=== PATIENT | female | born 1990 | race Caucasian/White ===

== ENCOUNTER → 2018-01-16 13:36 | Outpatient (CLI) | payer MEDICAID, SELFPAY ==
[2018-01-17 11:21] LABS: Hepatitis C Ab w Rflx HCV PCR Negative (NEGAT)
[2018-01-17 11:48] LABS: HIV-1/2 Ag & Ab Screen Negative (NEGAT)
[2018-01-17 13:46] LABS: Syphilis Serology (RPR) Negative (Negative)
[2018-01-17 14:53] LABS: Hepatitis B Surface Ag Negative (NEGAT)
== END ==
PROVIDERS: PCP Nurse Practitioner Adult Health; Visit Provider Nurse Practitioner Family
DX: Z11.3 Encounter for screening for infections with a predominantly sexual mode of transmission (principal); Z11.59 Encounter for screening for other viral diseases; Z11.4 Encounter for screening for human immunodeficiency virus [HIV]; Z12.4 Encounter for screening for malignant neoplasm of cervix
CPT/HCPCS: 36415; 86803; 87340; 87389; 87491; 87591; 88142; 86592

== ENCOUNTER → 2018-01-16 13:56 | Outpatient (REF) | payer MEDICAID, SELFPAY ==
--- NOTE | 2018-01-16 13:30 | PAPFT_PTH ---
PATIENT: Steffanie Chandler LOC: [facility] U#:[id number] AGE/SX: 34/F ROOM: RE01/16/[address]: LESLIE Rodríguez : 1990 BED: DIS: SPEC #: [id number] RECD: 01/16/18 17:38 STATUS: MATHEW REMaday #: [id number] BARBARA: 01/16/18 13:[address]: Lexi Finch DEPT: [facility] Cytology RECD BY: Jeanna Song ENTERED: 01/16/18 17:38 SP TYPE: PAPFT OTHR DR: Pooja Bunn Tissues: 1 - CX/ENDOCX FOR PAP SMEARS Procedures: PAP THIN PREP/UVM Screening Comments: [id number]
[2018-01-17 14:36] LABS: GC Result Negative; Specimen Description CERVIX
[2018-01-17 15:26] LABS: Chlamydia Result Positive
== END ==
LOC: LBN 13:56
PROVIDERS: PCP Nurse Practitioner Adult Health; Visit Provider Nurse Practitioner Family
DX: Z11.3 Encounter for screening for infections with a predominantly sexual mode of transmission (principal); Z12.4 Encounter for screening for malignant neoplasm of cervix
CPT/HCPCS: 87491; 87591; 88142

== ENCOUNTER 2018-06-18 08:26 | Outpatient (CLI) | payer MEDICAID, SELFPAY ==
[2018-06-18 10:07] LABS: Glucose 85 mg/dL (70-100); TSH (W/Ref FT4) 2.29 uIU/mL (0.358-3.74)
== END 2018-06-18 08:46 ==
PROVIDERS: PCP Nurse Practitioner; Visit Provider Nurse Practitioner
DX: Z13.1 Encounter for screening for diabetes mellitus (principal); Z13.29 Encounter for screening for other suspected endocrine disorder; Z83.49 Family history of other endocrine, nutritional and metabolic diseases; Z68.41 Body mass index [BMI] 40.0-44.9, adult
CPT/HCPCS: 36415; 82947; 84443

== ENCOUNTER 2018-07-03 14:54 | Emergency (ER) | payer MEDICAID, SELFPAY ==
[2018-07-03 14:57] VITALS: BP 125/73; PULSE 72; RESP 17; TEMP 36.4; O2SAT 97
--- NOTE | 2018-07-03 15:08 | W.ED.GENAD ---
Discharge Plan Disposition Patient Disposition: HOME Condition: Stable Discharge Details Chief Complaint: RashLesion Clinical Impression: Tinea corporis, Dry skin dermatitis Primary Care Provider: Hemalatha Briceno ED Provider: Raymundo York Home Meds and New Rx's Prescriptions: New clotrimazole 1 % ointment 1 applic TP BID 14 Days Qty: 56.7 RF: 0 Discontinued metronidazole 500 MG tablet 500 mg PO BID Qty: 14 RF: 0 Azithromycin 250 MG tablet 1,000 mg PO ONCE Qty: 4 RF: 0 Discharge Instructions Instructions: Skin Yeast Infection (ED) Additional Instructions: Please use cream twice daily for the next 2 weeks and keep skin clean and dry otherwise. Feel free to return for any worsening of symptoms or any further concerns otherwise follow-up with your primary care provider if not improving after using the cream. Referrals: Hemalatha Briceno [Primary Care Provider] - (As needed for reassessment) Medical Decision Making Patient presenting to the emergency department for chief complaint of rash. Patient states that yesterday she noted a small area on her breast that was red and itchy. Patient states this morning she put hydrocortisone cream on it thinking this would help which has made symptoms slightly worse. Patient denies any fever chills, cold-like symptoms, nausea vomiting diarrhea, difficulty breathing swelling of the lips tongue mouth or airway problems. Patient does state that she generally has dry skin and has some generalized itching on her back arms and legs but no obvious rash in those areas. Physical exam shows a perineal-like area to the lower sternum and underneath the medial aspects of the breast otherwise no other obvious rash is noted, exam is otherwise unremarkable. Patient placed up on clotrimazole cream and informed to use this twice daily for next 2 weeks and return as needed. After discussion of diagnosis and plan of care patient has no further needs, questions, or concerns and states clear understanding to return to the emergency department for any worsening symptoms. HPI General Mode of arrival: ambulatory. Date/Time Provider Initiated Documentation: 07/03/18 14:59. Limitations to Documentation: no limitations. Information obtained by: patient. History of Present Illness 27 year old F presents to the emergency department with the chief complaint of rash, dry skin, described as mild, with intensity rated at 1. Quality is described as burning, and is localized to the chest. Patient started experiencing this day(s) (1) and it has been constant. No relieving factors improve symptom(s), No exacerbating factors reported . Patient notes no other symptoms.. Related Data Home Medications Medication Instructions Recorded Confirmed clotrimazole 1 applic TP BID 14 Days #56.7 gm 07/03/18 Previous Rx's Medication Instructions Recorded clotrimazole 1 applic TP BID 14 Days #56.7 gm 07/03/18 Allergies Allergy/AdvReac Type Severity Reaction Status Date / Time No Known Allergies Allergy Unverified 01/16/18 13:04 General Stated Complaint: RashLesion FERNANDO: 4 Review of Systems Constitutional Denies chills and Denies fever(s) ENT Denies lip swelling, Denies throat swelling and Denies tongue swelling Cardiovascular Denies dyspnea Respiratory Denies chest congestion, Denies cough, Denies dyspnea, Denies stridor and Denies wheezing Integumentary/Breasts Reports as per HPI, Reports dry skin, Reports pruritus and Reports rash Allergic/Immunologic Denies lip swelling, Denies throat swelling, Denies tongue swelling and Denies wheezing PFSH Surgical History section Family History Mother RA (rheumatoid arthritis) Depression Thyroid disorder Brother Depression Social History Smoking/Tobacco Use Status: Never Exam Const General: cooperative Orientation: alert, awake and oriented x3 HENMT Mouth: moist mucous membranes Resp Effort & Inspection: normal respiratory effort, able to speak in complete sentences and no respiratory distress Skin General skin exam: dry skin and erythema (Patient has well demarcated erythematous rash above her lower sternum ) Lesions: no lesions Neuro General: alert, awake, oriented x3, moves all extremities and no focal motor deficits Sensory Exam: no sensory deficits noted Course Vital Signs Temperature 36.4 C L 07/03/18 14:57 Pulse 72 07/03/18 14:57 Respiratory Rate 17 07/03/18 14:57 Blood Pressure 125/73 07/03/18 14:57 Pulse Oximetry 97 07/03/18 14:57 Temperature 36.4 C L 07/03/18 14:57 Temperature Source Temporal Artery Scan 07/03/18 14:57 Pulse 72 07/03/18 14:57 Respiratory Rate 17 07/03/18 14:57 Respiratory Effort Non-Labored 07/03/18 14:59 Blood Pressure 125/73 07/03/18 14:57 Blood Pressure Position Sitting 07/03/18 14:57 Pulse Oximetry 97 07/03/18 14:57 Oxygen Delivery Method Room Air 07/03/18 14:57 Oxygen Flow Rate 0 07/03/18 14:57 Pain Level 1 07/03/18 14:57
--- NOTE | 2018-07-03 15:11 | ED.GENADUL_ITS ---
Discharge Plan Disposition Patient Disposition: HOME Condition: Stable Discharge Details Chief Complaint: RashLesion Clinical Impression: Tinea corporis, Dry skin dermatitis Primary Care Provider: Hemalatha Briceno ED Provider: Raymundo York Home Meds and New Rx's Prescriptions: New clotrimazole 1 % ointment 1 applic TP BID 14 Days Qty: 56.7 RF: 0 Discontinued metronidazole 500 MG tablet 500 mg PO BID Qty: 14 RF: 0 Azithromycin 250 MG tablet 1,000 mg PO ONCE Qty: 4 RF: 0 Discharge Instructions Instructions: Skin Yeast Infection (ED) Additional Instructions: Please use cream twice daily for the next 2 weeks and keep skin clean and dry otherwise. Feel free to return for any worsening of symptoms or any further concerns otherwise follow-up with your primary care provider if not improving after using the cream. Referrals: Hemalatha Briceno [Primary Care Provider] - (As needed for reassessment) Medical Decision Making Patient presenting to the emergency department for chief complaint of rash. Patient states that yesterday she noted a small area on her breast that was red and itchy. Patient states this morning she put hydrocortisone cream on it thinking this would help which has made symptoms slightly worse. Patient denies any fever chills, cold-like symptoms, nausea vomiting diarrhea, difficulty breathing swelling of the lips tongue mouth or airway problems. Patient does state that she generally has dry skin and has some generalized itching on her back arms and legs but no obvious rash in those areas. Physical exam shows a perineal-like area to the lower sternum and underneath the medial aspects of the breast otherwise no other obvious rash is noted, exam is otherwise unremarkable. Patient placed up on clotrimazole cream and informed to use this twice daily for next 2 weeks and return as needed. After discussion of diagnosis and plan of care patient has no further needs, questions, or concerns and states clear understanding to return to the emergency department for any worsening symptoms. HPI General Mode of arrival: ambulatory . Date/Time Provider Initiated Documentation: 07/03/18 14:59 . Limitations to Documentation: no limitations . Information obtained by: patient . History of Present Illness 27 year old F presents to the emergency department with the chief complaint of rash, dry skin, described as mild, with intensity rated at 1. Quality is described as bu rning, and is localized to the chest. Patient started experiencing this day(s) (1) and it has been constant. No relieving factors improve symptom(s), No exacerbating factors reported . Patient notes no other symptoms.. Related Data Home Medications Medication Instructions Recorded Confirmed clotrimazole 1 applic TP BID 14 Days #56.7 gm 07/03/18 Previous Rx's Medication Instructions Recorded clotrimazole 1 applic TP BID 14 Days #56.7 gm 07/03/18 Allergies Allergy/AdvReac Type Severity Reaction Status Date / Time No Known Allergies Allergy Unverified 01/16/18 13:04 General Stated Complaint: RashLesion FERNANDO: 4 Review of Systems Constitutional Denies chills and Denies fever(s) ENT Denies lip swelling, Denies throat swelling and Denies tongue swelling Cardiovascular Denies dyspnea Respiratory Denies chest congestion, Denies cough, Denies dyspnea, Denies stridor and Denies wheezing Integumentary/Breasts Reports as per HPI, Reports dry skin, Reports pruritus and Reports rash Allergic/Immunologic Denies lip swelling, Denies throat swelling, Denies tongue swelling and Denies wheezing [facility] Surgical History section Family History Mother RA (rheumatoid arthritis) Depression Thyroid disorder Brother Depression Social History Smoking/Tobacco Use Status: Never Exam Const General: cooperative Orientation: alert, awake and oriented x3 HENMT Mouth: moist mucous membranes Resp Effort & Inspection: normal respiratory effort, able to speak in complete sentences and no respiratory distress Skin General skin exam: dry skin and erythema (Patient has well demarcated erythematous rash above her lower sternum ) Lesions: no lesions Neuro General: alert, awake, oriented x3, moves all extremities and no focal motor deficits Sensory Exam: no sensory deficits noted Course Vital Signs Temperature 36.4 C L 07/03/18 14:57 Pulse 72 07/03/18 14:57 Respiratory Rate 17 07/03/18 14:57 Blood Pressure 125/73 07/03/18 14:57 Pulse Oximetry 97 07/03/18 14:57 Temperature 36.4 C L 07/03/18 14:57 Temperature Source Temporal Artery Scan 07/03/18 14:57 Pulse 72 07/03/18 14:57 Respiratory Rate 17 07/03/18 14:57 Respiratory Effort Non-Labored 07/03/18 14:59 Blood Pressure 125/73 07/03/18 14:57 Blood Pressure Position Sitting 07/03/18 14:57 Pulse Oximetry 97 07/03/18 14:57 Oxygen Delivery Method Room Air 07/03/18 14:57 Oxygen Flow Rate 0 07/03/18 14:57 Pain Level 1 07/03/18 14:57
== END 2018-07-03 15:22 | disposition home or self-care (01) ==
PROVIDERS: Emergency Provider Nurse Practitioner Family; PCP Nurse Practitioner
DX: B35.4 Tinea corporis (principal); L98.9 Disorder of the skin and subcutaneous tissue, unspecified
CPT/HCPCS: 99283

== ENCOUNTER 2019-01-06 15:27 | Emergency (ER) | payer MEDICAID, SELFPAY ==
[2019-01-06 15:53] VITALS: BP 116/72; PULSE 83; RESP 16; TEMP 36.7; O2SAT 98
--- NOTE | 2019-01-06 16:00 | W.ED.GENAD ---
Discharge Plan Disposition Patient Disposition: HOME Condition: Fair Discharge Details Chief Complaint: Sorethroat Clinical Impression: Strep pharyngitis Primary Care Provider: Hemalatha Briceno ED Provider: Patricia Weeks Home Meds and New Rx's Prescriptions: New cephalexin [Keflex] 500 mg capsule 500 mg PO BID 10 Days Qty: 20 RF: 0 Discharge Instructions Instructions: Upper Respiratory Infection (ED) Additional Instructions: Encourage hydration. Please take Keflex as prescribed. Even if symptoms improve, please take the entire course. Change your toothbrush as you did last time, make sure you are washing her hands frequently try not to share drinks. Please have a primary care in 1 week if not improving. If you develop difficulty breathing, shortness of breath, inability stay hydrated, difficulty swallowing or other new/worsening symptoms please seek care urgently once again peer Stand Alone Forms: Work Release Referrals: Hemalatha Briceno [Primary Care Provider] - Discharge Data Discharge Date/Time-TO BE ENTERED AT DEPARTURE: 01/06/19 16:29 Medical Decision Making Patient is a 28-year-old female presents today with chief complaint of sore throat. She reports that she had this for the past 2 days. States a few weeks ago she was treated for streptococcal pharyngitis. States that she did replace her toothbrush. Shortly thereafter, her son developed the same thing, he is currently being treated. Last she was treated with azithromycin. She denies any recent fevers or chills. Reports that she did have good resolution of her discomfort with ibuprofen which he took yesterday. Is not treated self with any thing today. Denies any cough. Is been afebrile. No GI upset. Denies any shortness of breath. Has been hydrating well. No change in appetite. Rapid strep testing was positive. Plan to treat with antibiotics. Advise follow-up with primary care in 1 week if not improving. All the questions and concerns were addressed and she is in agreement this plan. HPI General Mode of arrival: ambulatory. Date/Time Provider Initiated Documentation: 01/06/19 16:00. Limitations to Documentation: no limitations. Information obtained by: patient and RN notes reviewed. History of Present Illness 28 year old F presents to the emergency department with the chief complaint of sore throat, described as moderate and similar to prior episodes, with intensity rated at 4. Quality is described as burning, and is localized to the mouth. Patient reports no radiation. Patient started experiencing this day(s) and it has been constant. No relieving factors improve symptom(s), No exacerbating factors reported . Patient notes headaches; denies cough, diaphoresis, fever/chills, loss of appetite, nausea/vomiting, rash, shortness of breath and weakness. Patient did receive the following treatments prior to arrival, none Related Data Home Medications Medication Instructions Recorded Confirmed cephalexin [Keflex] 500 mg PO BID 10 Days #20 cap 01/06/19 Previous Rx's Medication Instructions Recorded cephalexin [Keflex] 500 mg PO BID 10 Days #20 cap 01/06/19 Allergies Allergy/AdvReac Type Severity Reaction Status Date / Time No Known Allergies Allergy Unverified 01/06/19 15:55 General Stated Complaint: Sorethroat FERNANDO: 4 Review of Systems Constitutional Reports as per HPI, Denies chills, Denies fatigue, Denies fever(s), Denies headache(s) and Denies poor appetite Eyes Reports as per HPI, Denies eye discharge and Denies irritation ENT Reports as per HPI, Denies ear discharge, Denies otalgia, Denies headache(s), Denies nasal congestion, Denies nasal discharge, Denies sinus pain, Denies sinus pressure, Reports sore throat and Denies throat swelling Cardiovascular Reports as per HPI, Denies chest pain and Denies dyspnea Respiratory Reports as per HPI, Denies cough, Denies hemoptysis, Denies pain on inspiration, Denies pain with cough and Denies dyspnea Gastrointestinal Reports as per HPI, Denies abdominal pain, Denies change in bowel habits, Denies nausea and Denies vomiting Integumentary/Breasts Reports as per HPI and Denies rash Neurologic Reports as per HPI and Denies headache(s) Endocrine Denies fatigue Allergic/Immunologic Denies throat swelling [facility] Surgical History section Social History Smoking/Tobacco Use Status: Never Drug use: Never Do you feel safe in your relationship?: Yes Exam Const General: cooperative, healthy appearing, comfortable, no acute distress, well developed and well groomed Nutritional Appearance: average body habitus and well nourished Orientation: alert and awake [facility] Head: normal to inspection, normocephalic and atraumatic Ears: hearing grossly normal bilaterally, external ears normal and TM's normal bilaterally General nose exam: external nose normal and nares normal Face and sinus: normal facial exam, sinuses nontender and face symmetric Mouth: oral mucosae normal, lip normal, tongue normal, oropharynx normal and moist mucous membranes Teeth and gingiva: dentition normal Throat: uvula midline and abnormal tonsil bilaterally erythema and hypertrophy 1+ Eyes General: appearance normal, both eyes and all related structures Neck Neck: normal visual inspection, full ROM, no meningeal signs and lymphadenopathy Resp Effort & Inspection: normal respiratory effort, able to speak in complete sentences and no respiratory distress Auscultation: clear to auscultation bilaterally, no rales, no rhonchi and no wheezes Cardio Rate: regular rate Rhythm: regular rhythm Heart Sounds: S1 normal and S2 normal Skin General skin exam: no rashes or lesions noted Neuro General: alert and awake Cognition: normal cognition Speech: speech normal Gait: normal gait Psych Appearance: grossly normal and well kempt Mental Status: mental status grossly normal Speech and Movement: speech and movement normal Course Vital Signs Temperature 36.7 C 01/06/19 15:53 Pulse 83 01/06/19 15:53 Respiratory Rate 16 01/06/19 15:53 Blood Pressure 116/72 01/06/19 15:53 Pulse Oximetry 98 01/06/19 15:53 Temperature 36.7 C 01/06/19 15:53 Temperature Source Skin 01/06/19 15:53 Pulse 83 01/06/19 15:53 Respiratory Rate 16 01/06/19 15:53 Respiratory Effort Non-Labored 01/06/19 15:53 Blood Pressure 116/72 01/06/19 15:53 Blood Pressure Position Sitting 01/06/19 15:53 Pulse Oximetry 98 01/06/19 15:53 Oxygen Delivery Method Room Air 01/06/19 15:53 Oxygen Flow Rate 0 01/06/19 15:53 Pain Level 4 01/06/19 15:53 Lab/Test Results Lab/Test Results: POC Strep Test-[facility](Rapid) Start: 01/06/19 15:58 Freq: .Rapid Strep Test Status: Active Protocol: Document 01/06/19 15:58 MMQ (Rec: 01/06/19 15:58 MMQ [id number]) Strep test-[facility](Rapid)-POC POC-Strep test-[facility] (Rapid) Positive POC-Strep test-[facility] (Rapid) Positive
== END 2019-01-06 16:29 | disposition home or self-care (01) ==
PROVIDERS: Emergency Provider Physician Assistant; PCP Nurse Practitioner
DX: J02.0 Streptococcal pharyngitis (principal)
CPT/HCPCS: 87880; 99283

== ENCOUNTER 2019-07-13 11:24 | Outpatient (REF) | payer MEDICAID, SELFPAY | END 2019-07-13 11:44 | LOC: NCHCN 11:24 | PROVIDERS: PCP Nurse Practitioner; Visit Provider Nurse Practitioner Family | DX: J02.0 Streptococcal pharyngitis (principal) | CPT/HCPCS: 87070 ==

== ENCOUNTER 2019-07-17 16:28 | Outpatient (REF) | payer MEDICAID, SELFPAY ==
--- NOTE | 2019-07-17 15:45 | PAPFT_PTH ---
PATIENT: Steffanie Chandler LOC: [facility]#:[id number] AGE/SX: 28/F ROOM: RE07/17/[address]: LESLIE Rodríguez : 1990 BED: DIS: 07/17/2019 SPEC #: [id number] RECD: 07/17/19 17:23 STATUS: MATHEW REQ #: [id number] BARBARA: 07/17/19 15:[address]: Lexi Finch DEPT: [facility] Cytology RECD BY: Jeanna Song ENTERED: 07/17/19 17:23 SP TYPE: PAPFT OTHR DR: Hemalatha Briceno Tissues: 1 - CX/ENDOCX FOR PAP SMEARS Procedures: PAP THIN PREP/UVM Screening HPV DNA PROBE Comments: [id number]
[2019-07-20 13:23] LABS: Chlamydia Result Negative (Negative); GC Result Negative (Negative)
== END 2019-07-17 16:48 ==
LOC: LBN 16:28
PROVIDERS: PCP Nurse Practitioner; Visit Provider Nurse Practitioner Family
DX: Z11.3 Encounter for screening for infections with a predominantly sexual mode of transmission (principal); Z12.4 Encounter for screening for malignant neoplasm of cervix; Z11.51 Encounter for screening for human papillomavirus (HPV)
CPT/HCPCS: 87491; 87591; 88142; 87624

== ENCOUNTER 2019-11-12 19:58 | Emergency (ER) | payer MEDICAID, SELFPAY ==
[2019-11-12 20:05] VITALS: BP 134/88; PULSE 86; RESP 16; TEMP 36.6; O2SAT 100
--- NOTE | 2019-11-12 20:17 | ED.GENADUL_ITS ---
Discharge Plan Disposition Patient Disposition: HOME Condition: Stable Discharge Details Chief Complaint: Sorethroat Clinical Impression: Streptococcal sore throat Primary Care Provider: Hemalatha Briceno ED Provider: Carla Diaz Home Meds and New Rx's Prescriptions: No Action Mirena 20 mcg/24 hours (5 yrs) 52 mg intrauterine device 1 device IY ONCE RF: 0 sertraline [Zoloft] 50 mg tablet 50 mg PO DAILY RF: 0 Discharge Instructions Instructions: Strep Throat (ED) Additional Instructions: Gargle with warm salt water 3 times a day, please take Tylenol or Ibuprofen with food every 4-6 hours as needed for pain and swelling. Please return to the ED or be seen by your PCP if any worsening. Return for any fever, vomiting, troub le speaking or increasing shortness of breath. Follow up with primary care provider in 3-5 days. Return to ED sooner if any worsening or concerns. Increase oral fluids. 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 No trouble swallowing no trouble breathing does have a clear voice. Denies any ear pain, nausea vomiting diarrhea or any other symptoms at this time. Did not take Tylenol or ibuprofen prior to arrival. Rapid strep POC positive. Discussed treatment modalities with patient, opted for IM Bicillin injection. Bicillin IM 1,200,000 units given, ibuprofen 600 mg given in department. Rapid strep swab sent for culture which is pending at this time. Patient given work note to be off work for 3 to 5 days. Outpatient COVID testing ordered, and is pending at this time. HPI General Mode of arrival: ambulatory . Date/Time Provider Initiated Documentation: 11/12/19 20:06 . Limitations to Documentation: no limitations . Information obtained by: patient . 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 No trouble swallowing no trouble breathing does have a clear voice. Denies any ear pain, nausea vomiting diarrhea or any other symptoms at this time. Did not take Tylenol or ibuprofen prior to arrival. Related Data Home Medications Medication Instructions Recorded Confirmed levonorgestrel 20 mcg/24 hours (5 1 device IY ONCE 07/17/19 07/17/19 yrs) 52 mg intrauterine device sertraline 50 mg tablet 50 mg PO DAILY 07/17/19 07/17/19 Allergies Allergy/AdvReac Type Severity Reaction Status Date / Time No Known Allergies Allergy Verified 07/17/19 15:29 General Stated Complaint: Sorethroat FERNANDO: 4 Review of Systems Narrative: Constitutional: Negative for weight loss, alert and oriented, well groomed, normal body habitus, appears comfortable. HEENT: Denies trauma, headaches, blurry vision, nasal discharge, trouble swallowing. Positive sore throat has had a history of strep throat. Chest: Denies chest pain, palpitations, irregular rhythm, hypertension. Respiratory: Denies Shortness of breath, cough, hemoptysis. GI: Denies abdominal pain, nausea, vomiting, diarrhea, constipation. : Denies dysuria, hematuria, flank pain, rectal bleeding. Neuro: Denies dizziness, blurry vision, weakness, syncope, headache or facial numbness. Hematologic: Denies easy bruising, intolerance to heat or cold, hair loss. [facility] Social History Smoking/Tobacco Use Status: Never Quit status: considering quitting Drug use: Never Do you feel safe at home: Yes Do you feel safe in your relationship?: Yes Exam Narrative Exam Narrative: Constitutional: Alert and oriented x3. Appears stated age. No rmal body habitus. Head: Normocephalic, no trauma. Eyes: Pupils PERRLA, Red reflex noted, EOM's intact. Eyelids symmetrical without lesions, discharge, or swelling. ENT: Bilateral TM's WNL, External ear normal to inspection, no mastoid TTP, swelling, or erythema, Nasal turbinates WNL, no nasal discharge. Normal dentition, Posterior pharynx erythemic, tonsils bilaterally are 2+ no exudate visualized, uvula midline. Chest: RRR, Normal S1, S2, distal pulses intact. Resp: Lungs clear to auscultation bilaterally, no wheezes, rales, or rhonchi. Musculoskeletal: Normal gait, 5/5 strength to all four extremities. Skin: No suspicious rashes or lesions. Capillary refill less than 2 sec. Neurologic: Cranial nerves II-XII intact. Alert and oriented x 3. DTR's intact. Hematologic/Lymphatic: No ecchymosis, no lymphadenopathy. Course Vital Signs Vital signs: Vital Signs Temperature 36.6 C 11/12/19 20:05 Pulse 86 11/12/19 20:05 Respiratory Rate 16 11/12/19 20:05 Blood Pressure 134/88 11/12/19 20:05 Pulse Oximetry 100 11/12/19 20:05 Temperature 36.6 C 11/12/19 20:05 Temperature Source Temporal Artery Scan 11/12/19 20:05 Pulse 86 11/12/19 20:05 Respiratory Rate 16 11/12/19 20:05 Respiratory Effort 11/12/19 20:07 Blood Pressure 134/88 11/12/19 20:05 Blood Pressure Position Sitting 11/12/19 20:05 Pulse Oximetry 100 11/12/19 20:05 Oxygen Delivery Method Room Air 11/12/19 20:05 Oxygen Flow Rate 0 11/12/19 20:05
[2019-11-12] MEDS: Ibuprofen 600 MG TAB PO (20:37)
== END 2019-11-12 20:45 | disposition home or self-care (01) ==
LOC: ER 20:44
PROVIDERS: Emergency Provider Registered Nurse Emergency; PCP Nurse Practitioner
DX: J02.0 Streptococcal pharyngitis (principal)
CPT/HCPCS: 87880; 96372; 99284; 87070; 99283; J0561

== ENCOUNTER 2019-11-13 09:21 | Outpatient (CLI) | payer MEDICAID, SELFPAY ==
[2019-11-14 23:28] LABS: COVID-19 RT-PCR Result NEGATIVE (Negative)
== END 2019-11-13 09:41 ==
PROVIDERS: PCP Nurse Practitioner; Visit Provider Registered Nurse Emergency
DX: Z11.59 Encounter for screening for other viral diseases (principal)
CPT/HCPCS: U0003

== ENCOUNTER 2020-03-23 15:47 | Outpatient (REF) | payer MEDICAID, SELFPAY ==
[2020-03-27 16:51] LABS: Patient Race White; SARS-CoV-2 RNA Undetected (Undetected); SARS-CoV-2 Specimen Source Nasal
== END 2020-03-23 16:07 ==
LOC: NCHCN 15:47
PROVIDERS: PCP Nurse Practitioner; Visit Provider Nurse Practitioner Family
DX: J02.9 Acute pharyngitis, unspecified (principal)
CPT/HCPCS: U0003

== ENCOUNTER 2021-01-26 12:47 | Outpatient (REF) | payer MEDICAID, SELFPAY ==
[2021-01-28 11:37] LABS: COVID-19 RT-PCR UVMMC Result Negative (Negative)
== END 2021-01-26 12:48 | disposition home or self-care (01) ==
LOC: LBN 12:47
PROVIDERS: PCP Nurse Practitioner; Visit Provider Family Medicine
DX: Z20.822 Contact with and (suspected) exposure to COVID-19 (principal); J06.9 Acute upper respiratory infection, unspecified
CPT/HCPCS: U0003

== ENCOUNTER 2021-04-11 20:52 | Emergency (ER) | payer MEDICAID, SELFPAY ==
[2021-04-11 20:59] VITALS: PULSE 89; RESP 16; TEMP 36.6; O2SAT 98
[2021-04-11 21:15] VITALS: BP 106/70
--- NOTE | 2021-04-11 21:22 | ED.GENADUL_ITS ---
Discharge Plan Disposition Patient Disposition: HOME Condition: Stable Discharge Details Clinical Impression: Back strain Primary Care Provider: Hemalatha Briceno ED Provider: Jen Yancey Home Meds and New Rx's Prescriptions: Continued Mirena 20 mcg/24 hours (5 yrs) 52 mg intrauterine device 1 device IY ONCE RF: 0 sertraline [Zoloft] 50 mg tablet 50 mg PO DAILY RF: 0 Discharge Instructions Instructions: Lower Back Exercises (ED) Additional Instructions: no bending or twisting from the waist use ibuprofen 600 mg 4 times daily with food for 5 days can use heat or ice for comfort salonpas patches if you got relief from the lidocaine patches can use flexeril 10 mg 3 times daily if needed for pain/spasms Stand Alone Forms: Work Release Referrals: Hemalatha Briceno [Primary Care Provider] - Discharge Data Discharge Date/Time-TO BE ENTERED AT DEPARTURE: 04/11/21 22:00 Medical Decision Making patient presents with non traumatic low back pain, no symptoms of cord compression syndrome. no fever or history of IV drug use no urinary symptoms or concern for renal colic patient took 1000 mg po motrin prior to arrival. likely musculoskeletal. will apply lidocaine patch and given flexeril 10 mg po. conservative treatment for low back strain. HPI General Mode of arrival: ambulatory . Limitations to Documentation: no limitations . Information obtained by: patient . 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 denies saddle anesthesia, bowel or bladder incontinence or retention. denies any similar history. no fever. denies drug abuse Related Data Home Medications Medication Instructions Recorded Confirmed levonorgestrel 20 mcg/24 hours (7 1 device IY ONCE 07/17/19 04/11/21 yrs) 52 mg intrauterine device sertraline 50 mg tablet 50 mg PO DAILY 07/17/19 04/11/21 Allergies Allergy/AdvReac Type Severity Reaction Status Date / Time No Known Allergies Allergy Verified 04/11/21 21:19 General Stated Complaint: Nk/Back Pain FERNANDO: 4 Review of Systems All systems reviewed & are unremarkable except as noted in HPI and below Constitutional Constitutional: Denies fever(s) and Denies weakness Respiratory Respiratory: Denies chest congestion and Denies cough Gastrointestinal Gastrointestinal: Denies abdominal pain, Denies constipation, Denies diarrhea, Denies nausea and Denies vomiting Genitourinary Genitourinary: Denies flank pain, Denies urinary incontinence, Denies urinary hesitancy and Denies urinary urgency Comments: no hematuria Musculoskeletal Musculoskeletal: Reports back pain and Denies muscle weakness Neurologic Neurologic: Denies weakness PFSH Surgical History section X 2 Family History Mother RA (rheumatoid arthritis) Depression Thyroid disorder Brother Depression Social History Smoking/Tobacco Use Status: Current every day Tobacco Type: cigarettes Years smoked: 4 Tobacco: How many years used: 4 Quit status: considering quitting Smoking risk assessment performed?: Yes Alcohol Intake: current Alcohol Intake frequency: holidays/special occasions only Drug use: Daily Substance use type: marijuana Details: Pot daily Do you feel safe at home: Yes Do you feel safe in your relationship?: Yes Exam Const General: cooperative, healthy appearing, comfortable and no acute distress Nutritional Appearance: overweight Orientation: alert, awake and oriented x3 Back/Spine/Pelvis Back: no CVA tenderness, No erythema, No ecchymosis and back tenderness Neuro Gait: normal gait Motor: muscle tone normal throughout Sensory Exam: no sensory deficits noted Extrem General: normal to inspection, full ROM and other (normal reflexes) Course Vital Signs Vital signs: Vital Signs Temperature 36.6 C 04/11/21 20:59 Pulse 89 04/11/21 20:59 Respiratory Rate 16 04/11/21 20:59 Pulse Oximetry 98 04/11/21 20:59 Temperature 36.6 C 04/11/21 20:59 Temperature Source Temporal Artery Scan 04/11/21 20:59 Pulse 89 04/11/21 20:59 Respiratory Rate 16 04/11/21 20:59 Respiratory Effort 04/11/21 21:08 Blood Pressure 106/70 04/11/21 21:15 Blood Pressure Position Sitting 04/11/21 20:59 Pulse Oximetry 98 04/11/21 20:59 Oxygen Delivery Method Room Air 04/11/21 20:59 Oxygen Flow Rate 0 11/09/21 20:59 Pain Level 10 04/11/21 21:13 PAWSS Have you Been Recently Intoxicated or Drunk Within the Last 30 days?: Yes Have you Ever Experienced Previous Episodes of Alcohol Withdrawal?: No Have you ever Experienced Withdrawal Seizures?: No Have you ever Experienced Delirium Tremens(DT)s?: No Have you ever undergone Alcohol Rehabilitation Treatment (i.e, inpt ot outpatient treatment programs)?: No Have you ever Experienced Blackouts?: No Have you ever Combined Alcohol with other Downers within the last 90 days?: No Have you ever Combined Alcohol with any other Substance of Abuse during the last 90 days?: No Positive Blood Alcohol level on Presentation? [PCS.BAL]: No Evidence of Increased Autonomic Activity (i.e. HR>120, tremor, sweating, agitation, nausea)?: No Result: 1
[2021-04-11] MEDS: Cyclobenzaprine 10 MG TAB PO (21:28)
[2021-04-11] MEDS: Lidocaine 5% Patch 2 PATCH TP (21:29)
== END 2021-04-11 22:00 | disposition home or self-care (01) ==
LOC: ER 21:57
PROVIDERS: Emergency Provider Nurse Practitioner Acute Care; PCP Nurse Practitioner
DX: S39.012A Strain of muscle, fascia and tendon of lower back, initial encounter (principal); X50.3XXA Overexertion from repetitive movements, initial encounter; Y99.0 Civilian activity done for income or pay
CPT/HCPCS: 99283

== ENCOUNTER 2021-12-14 12:40 | Outpatient (REF) | payer MEDICAID, SELFPAY ==
[2021-12-14 14:58] LABS: Abs Immature Grans 0.04 10^3/uL (0.0-0.06); Absolute Basophil Count 0.03 10^3/uL (0.0-0.2); Absolute Eosinophil Count 0.32 10^3/uL (0.0-0.7); Absolute Lymphocyte Count 2.31 10^3/uL (1.2-3.4); Absolute Monocyte Count 0.63 10^3/uL (0.1-0.8); Absolute Neutrophil Count 6.73 10^3/uL (1.2-6.7); Basophils % 0.3; Eosinophils % 3.2; HCT 41.6 % (36.0-46.0); HGB 13.4 g/dL (11.2-15.7); Immature Grans % 0.4; MCHC 32.2 % (32.0-36.0); MCV 90 fL (80-95); Monocytes % 6.3; Neutrophils % 66.8; Platelet Count 280 10^3/uL (130-400); RBC 4.62 10^6/uL (3.93-5.22); RDW 12.9 % (11.7-14.6); RDW-SD 42.5 fL; WBC 10.06 10^3/uL (4.4-10.8)
[2021-12-14 16:10] LABS: ALT 19 U/L (14-59); AST 13 U/L (15-37); Alkaline Phosphatase 75 U/L (46-116); Anion Gap 10.7 mmol/L (3-11); BUN 14 mg/dL (7-18); Bilirubin, Total 0.4 mg/dL (0.2-1.0); CO2 24.3 mmol/L (21.0-32.0); CREATININE 0.7 mg/dL (0.55-1.02); Calcium 9.1 mg/dL (8.5-10.1); Chloride 104 mmol/L (98-107); Glucose 81 mg/dL (74-106); Potassium 3.8 mmol/L (3.5-5.1); Sodium 139 mmol/L (136-145); TSH (W/Ref FT4) 2.13 uIU/mL (0.36-3.74); Total Protein 7.1 g/dL (6.4-8.2)
== END 2021-12-14 12:41 | disposition home or self-care (01) ==
LOC: NCHCN 12:40
PROVIDERS: PCP Nurse Practitioner; Visit Provider Nurse Practitioner Family
DX: R53.83 Other fatigue (principal); F41.8 Other specified anxiety disorders; Z83.49 Family history of other endocrine, nutritional and metabolic diseases; Z72.0 Tobacco use
CPT/HCPCS: 80053; 84443; 85025

== ENCOUNTER 2022-02-02 14:23 | Outpatient (REF) | payer MEDICAID, SELFPAY ==
--- NOTE | 2022-02-02 13:15 | PAPFT_PTH ---
PATIENT: Steffanie Chandler LOC: [facility] #:[id number] AGE/SX: 31/F ROOM: RE02/02/[address]: Shelly Paez : 1990 BED: DIS: 02/02/2022 SPEC #: [id number] RECD: 02/02/22 15:53 STATUS: ROBERTODilcia REQ #: [id number] BARBARA: 02/02/22 13:[address]: Shelly Paez DEPT: [facility] Cytology RECD BY: Jeanna Song ENTERED: 02/02/22 15:54 SP TYPE: PAPFT OTHR DR: Hemalatha Briceno Tissues: 1 - CX/ENDOCX FOR PAP SMEARS Procedures: PAP THIN PREP/UVM Screening HPV DNA PROBE Comments: [id number] (HPV 16 & 18/45)
== END 2022-02-02 14:24 | disposition home or self-care (01) ==
LOC: LBN 14:23
PROVIDERS: PCP Nurse Practitioner; Visit Provider Nurse Practitioner Family
DX: Z12.4 Encounter for screening for malignant neoplasm of cervix (principal); R87.810 Cervical high risk human papillomavirus (HPV) DNA test positive; Z11.51 Encounter for screening for human papillomavirus (HPV)
CPT/HCPCS: 88142; 87624

== ENCOUNTER 2022-07-10 16:11 | Outpatient (REF) | payer MEDICAID, SELFPAY | END 2022-07-10 16:12 | disposition home or self-care (01) | LOC: LBN 16:11 | PROVIDERS: PCP Nurse Practitioner Family; Visit Provider Obstetrics & Gynecology | DX: N89.8 Other specified noninflammatory disorders of vagina (principal) | CPT/HCPCS: 87480; 87510; 87660 ==

== ENCOUNTER 2022-07-19 09:32 | Outpatient (CLI) | payer MEDICAID, SELFPAY ==
--- NOTE | 2022-07-19 09:30 | DI.US_ITS ---
Exam(s) US PELVIS TRANSVAGINAL EXAM: US PELVIS TRANSVAGINAL CLINICAL HISTORY: iud localization/heavy bleeding z30.431 TECHNIQUE: Ultrasound of the pelvis was performed both transabdominal and transvaginal. COMPARISON: No exams were available for comparison FINDINGS: UTERUS: Retroverted Measures 7.8 cm length x 4.8 cm AP x 4.9 cm wide. There are no uterine fibroids. Endometrial thickness measures 4.4 mm. There is an IUD in place which appears to be in the lower uterine segment-upper cervix. Lateral arms of the IUD appear to penetrate the myometrial wall. CERVIX: There are no obvious nabothian cysts. RIGHT OVARY: Measures 3.8 x 2.5 x 2.6 cm No significant cysts nor masses evident in the right ovary. LEFT OVARY: Measures 2.6 x 2.0 x 2.6 cm No significant cysts nor masses evident in the left ovary. CUL-DE-SAC: No free fluid evident. IMPRESSION: 1. The appears to be in suboptimal position, being low lying. Retroverted uterus. 2. No abnormal adnexal findings. 3. No free fluid evident in the adnexal regions and cul-de-sac. DATA REPOSITORY:
== END 2022-07-19 09:52 ==
LOC: DI 09:36
PROVIDERS: PCP Nurse Practitioner Family; Visit Provider Obstetrics & Gynecology
DX: Z30.431 Encounter for routine checking of intrauterine contraceptive device (principal)
CPT/HCPCS: 76830; 76856

== ENCOUNTER 2024-01-23 07:56 | Emergency (ER) | payer MEDICAID, SELFPAY ==
[2024-01-23 07:59] VITALS: BP 113/77; PULSE 100; RESP 12; TEMP 36.6; O2SAT 98
--- NOTE | 2024-01-23 08:25 | W.ED.GENAD ---
Discharge Plan Disposition Patient Disposition: Home Condition: Stable Discharge Details Clinical Impression: Abdominal pain, Diverticulitis Primary Care Provider: SAMANTHA BENTLEY ED Provider: Dari Buchanan Home Meds and New Rx's Prescriptions: New ondansetron 4 mg tablet,disintegrating 4 mg PO Q6H PRN (Reason: nausea and vomiting) Qty: 30 0RF No Action Mirena 21 mcg/24 hours (8 yrs) 52 mg intrauterine device 1 device intrauterine ONCE Rx Instructions: as a single dose Discharge Instructions Instructions: Diverticulitis (DC) Additional Instructions: YOU HAVE UNCOMPLICATED DIVERTICULITIS PLEASE FOLLOW A LIQUID DIET FOR THE NEXT WEEK AND FOLLOW UP WITH YOUR PCP FOR RE-EVALUATION RETURN TO THE ED FOR FEVER, SEVERE PAIN, NOT TOLERATING ANYTHING BY MOUTH TAKE TYLENOL OR MOTRIN NEEDED FOR PAIN YOU WILL NEED TO GET A COLONOSCOPY IN 6-8 WEEKS, REFERRAL FOR SURGERY CLINIC TO ARRANGE THIS HAS BEEN MADE Stand Alone Forms: Work Release Referrals: Boogie Guzman MD [ [facility]] - (F/U COLONOSCOPY AFTER DIVERTIC) Discharge Data Discharge Date/Time-TO BE ENTERED AT DEPARTURE: 01/23/24 13:55 HPI General Date/Time Provider Initiated Documentation: 01/23/24 07:59. Limitations to Documentation: no limitations. Information obtained by: patient. HPI Narrative: 33-year-old female without significant past medical history presents for evaluation of lower abdominal pain. Symptoms started yesterday and have been progressively worsening. Symptoms are located in the middle lower abdomen and radiate to the sides. Today associated with nausea but no vomiting. Has not had a bowel movement during this time. Denies fever or chills. Denies any dysuria or hematuria. Denies any vaginal bleeding or discharge. Reports that she has had poor oral intake during this time because the pain is so severe. Related Data Home Medications ?Medication ?Instructions ?Recorded ?Confirmed levonorgestrel 21 mcg/24 hr (up to 1 device intrauterine ONCE 08/23/22 01/23/24 8 years) 52 mg intrauterine device (Mirena) ondansetron 4 mg disintegrating 4 mg PO Q6H PRN nausea and 01/23/24 tablet vomiting #30 tabs Previous Rx's ?Medication ?Instructions ?Recorded ondansetron 4 mg disintegrating 4 mg PO Q6H PRN nausea and 08/22/24 tablet vomiting #30 tabs Allergies Allergy/AdvReac Type Severity Reaction Status Date / Time No Known Allergies Allergy Verified 01/23/24 08:07 General Stated Complaint: Abd Prob FERNANDO: 3 Exam Narrative Exam Narrative: Review of Systems: All systems reviewed & are unremarkable except as noted in HPI and below Well-developed, no acute distress NCAT PERRL, normal conjunctiva RRR, no murmur Unlabored respiratory effort, CTAB Nondistended abdomen , soft mild tenderness suprapubic Course Vital Signs Vital signs: Vital Signs Temperature 36.6 C 01/23/24 07:59 Pulse 100 H 01/23/24 07:59 Respiratory Rate 12 01/23/24 07:59 Blood Pressure 113/77 01/23/24 07:59 Pulse Oximetry 98 01/23/24 07:59 Temperature 36.6 C 01/23/24 07:59 Temperature Source Oral 01/23/24 07:59 Pulse 100 H 01/23/24 07:59 Respiratory Rate 12 01/23/24 07:59 Respiratory Effort Normal, Non-Labored 01/23/24 08:04 Blood Pressure 113/77 01/23/24 07:59 Blood Pressure Position Sitting 01/23/24 07:59 Pulse Oximetry 98 01/23/24 07:59 Oxygen Delivery Method Room Air 01/23/24 07:59 Oxygen Flow Rate 0 01/23/24 07:59 Pain Level 6 01/23/24 08:04 Lab/Test Results Lab/Test Results: POC- Test(urine) Negative Medical Decision Making Emergent evaluation of lower abdominal pain. Initial differential includes UTI, constipation, less likely appendicitis given lack of fever but patient is slightly tachycardic. No history of renal stone. Abdominal surgical history includes repeated C-sections. Plan for labs urinalysis fluids pain control and CT imaging. Lab work unremarkable. No elevated white blood cell count. CT imaging is consistent with uncomplicated diverticulitis. The patient is otherwise healthy without any comorbidities. She does not have any signs of sepsis. Given her uncomplicated findings, no indication for antibiotics. Will discharge with pain control, nausea medication and instructions for clear liquid diet. \ the patient was advised to follow-up with her primary care for reevaluation. A patient was referred to general surgery for outpatient reevaluation and colonoscopy in 6 to 8 weeks after illness. Quality:SDOH Health Related Social Needs: No Data to Display PFSH All Active Problems (Updated 01/23/24 @ 09:56 by Dari Buchanan MD) Diverticulitis (Chronic) Abdominal pain (Acute) Medical History Candidiasis of breast Back strain IUD surveillance (01/16/18) Mirena IUD removed via endosee, Alley placed 02/22/22 - also malpositioned and removed 08/09/22 Mirena replaced 08/23/22 without difficulty Surgical History section X 2 Family History Mother RA (rheumatoid arthritis) Depression Thyroid disorder Brother Depression Social History Smoking/Tobacco Use Status: Current every day Tobacco Type: cigarettes Years smoked: 4 Tobacco: How many years used: 4 Quit status: considering quitting Smoking risk assessment performed?: Yes Alcohol Intake: current Alcohol Intake frequency: holidays/special occasions only Drug use: Daily Substance use type: marijuana Details: Pot daily Housing: house Do you feel safe at home: Yes Do you feel safe in your relationship?: Yes Female Reproductive History Menstrual Age of Menarche: 10 History History 2 Para Hx # Term Pregnancies Multiple births Hx # Pregnancies Ectopic pregnancies AB induced Hx Number of Living Children AB spontaneous Past Pregnancies Del. Date GA/Weeks # Preg Succ Route Wgt Sex Labor Lgth Anesthesia Location [facility] 10/13/10 35 No Yes 1927.768 g Male [facility] 10/07/14 39 No Yes 2976.7 g Male [facility] Delivery Date: 10/13/10 Last Updated by: Liya Ludwig MD 33wk PPROM, 35wk delivery via CS for FHT Delivery Date: 10/07/14 Last Updated by: Liya Ludwig MD [facility] PAWSS Have you Been Recently Intoxicated or Drunk Within the Last 30 days?: No Have you Ever Experienced Previous Episodes of Alcohol Withdrawal?: No Have you ever Experienced Withdrawal Seizures?: No Have you ever Experienced Delirium Tremens(DT)s?: No Have you ever undergone Alcohol Rehabilitation Treatment (i.e, inpt ot outpatient treatment programs)?: No Have you ever Experienced Blackouts?: No Have you ever Combined Alcohol with other Downers within the last 90 days?: No Have you ever Combined Alcohol with any other Substance of Abuse during the last 90 days?: No Positive Blood Alcohol level on Presentation? [PCS.BAL]: No Evidence of Increased Autonomic Activity (i.e. HR>120, tremor, sweating, agitation, nausea)?: No Result: 0
[2024-01-23 08:35] LABS: Bilirubin Negative (Negative); Blood Negative (Negative); Clarity Clear (Clear); Glucose Negative (Negative); Ketones Negative (Negative); Leukocyte Esterase Negative (Negative); Nitrite Negative (Negative); Specific Gravity >= 1.030 (1.005-1.025); Urobilinogen 0.2 mg/dL (Up to 0.2)
[2024-01-23] MEDS: Normal Saline 1,000 ML 1000 ML IV (08:42)
[2024-01-23] MEDS: Ketorolac 15 MG/ML VIAL 10 MG IVP (08:42)
[2024-01-23 08:55] LABS: Abs Immature Grans 0.05 10^3/uL (0.0-0.06); Absolute Basophil Count 0.04 10^3/uL (0.0-0.2); Absolute Eosinophil Count 0.08 10^3/uL (0.0-0.7); Absolute Lymphocyte Count 1.76 10^3/uL (1.2-3.4); Absolute Monocyte Count 0.78 10^3/uL (0.1-0.8); Basophils % 0.3 %; Eosinophils % 0.6 %; HCT 45.2 % (36.0-46.0); HGB 14.9 g/dL (11.2-15.7); Immature Grans % 0.4 %; MCV 91 fL (80-95); MPV 9.1 fL (8.0-11.0); Monocytes % 6.2 %; Neutrophils % 78.5 %; Platelet Count 269 10^3/uL (130-400); RBC 4.96 10^6/uL (3.93-5.22); RDW 12.9 % (11.7-14.6); RDW-SD 42.5 fL; WBC 12.54 10^3/uL (4.4-10.8)
[2024-01-23 09:05] LABS: Absolute Neutrophil Count 9.84 10^3/uL (1.2-6.7)
[2024-01-23 09:09] LABS: ALT 11 U/L (14-59); AST 13 U/L (15-37); Albumin 3.8 g/dL (3.4-5.0); Alkaline Phosphatase 88 U/L (46-116); Anion Gap 11.2 mmol/L (3-11); BUN 15 mg/dL (7-18); Bilirubin, Total 0.96 mg/dL (0.2-1.0); CO2 24.8 mmol/L (21.0-32.0); Calcium 9.4 mg/dL (8.5-10.1); Chloride 102 mmol/L (98-107); Estimated GFR 75.34 (mL/min/1.73m2); Glucose 102 mg/dL (74-106); Potassium 3.7 mmol/L (3.5-5.1); Sodium 138 mmol/L (136-145); Total Protein 7.8 g/dL (6.4-8.2)
--- NOTE | 2024-01-23 09:19 | DI.CT_ITS ---
Exam(s) CT RENAL COLIC WO EXAM: CT RENAL COLIC WO CLINICAL HISTORY: lower abdominal pain. TECHNIQUE: Imaging Protocol: Axial computed tomography images with coronal and sagittal reformatted images were created and reviewed. CONTRAST MATERIAL: Noncontrast COMPARISON: No exams were available for comparison FINDINGS: ABDOMEN: Lung Bases: Normal where visualized. Liver: Enlarged at 20 cm in length. Mild hepatic steatosis. No measurable mass. Gallbladder and biliary tract: No radiodense calculus or dilation. Pancreas: Normal density, no calcifications or inflammatory process. Spleen: Normal. Kidneys: Normal size, contour and axis. No radiodense stones or obstructive uropathy. No masses seen. Adrenal glands: No masses seen. Abdominal Aorta: Abdominal portion non-dilated. Soft tissues: Unremarkable. PELVIS: Bladder: Symmetric distention, no gross wall thickening. No evidence of stones.No visible mass. Bowel: Inflammation in the mesentery adjacent to the sigmoid colon. Single diverticulum is noted in this location. Findings likely represent diverticulitis. The appendix is normal. Stomach and small bowel are unremarkable. Reproductive: Retroverted uterus with IUD in place. Peritoneal cavity: No ascites or focal collection. Bones: Degenerative disc changes at L5-S1. IMPRESSION: Sigmoid diverticulitis. No evidence of perforation or abscess. RADIATION DOSE DELIVERED: Total DLP DATA REPOSITORY: All CT scans at this facility are submitted to the National Radiology Data Registry (NRDR) Dose Index Registry (DIR) with the [employer] (ACR). RADIATION OPTIMIZATION: All CT scans at this facility use at least one of these dose optimization te chniques: automated exposure control; mA and/or kV adjustment per patient size (includes targeted exa ms where dose is matched to clinical indication); or iterative reconstruction.
--- OUTSIDE RECORDS SUMMARY | 2024-01-23 10:02 | XMS_ITS | Encounter Summary ---
Author Organization [facility] Address [address] [place] [address] Care Team Providers Care Shift Supervisor Name Role Phone Unavailable Primary Care Provider Rocío houston Encounter Details Date Type Department Care Team (Late st Contact Info) Description 07/20/2019 Lab Requisition [facility] Pathology & Laboratory Medicine - [facility] [address] [place] [address] Lexi Finch [address] [address] Encounter for other general examination Social History Tobacco Use Types Packs/Day Years Used Date Smoking Tobacco: Never Assessed Sex and Gender Information Value Date Recorded Sex Assigned at Not on file Gender Identity Not on file Sexual Orientation Not on file documented as of this encounter Plan of Treatment Not on file documented as of this encounter Procedures Procedure Name Priority Date/Time Associated Diagnosis Comments PAP TEST Today 07/17/2019 15:45 EST Encounter for other general examination HPV DNA DETECTION WITH GENOTYPING, PCR Today 07/17/2019 15:45 EST Encounter for other general examination documented in this encounter Results * (ABNORMAL) HUMAN PAPILLOMAVIRUS (HPV) DETECTION-HIGH RISK TYPES (07/17/2019 15:45 EST) HPV other High Risk types, PCR Positive(A ) Negative 07/30/2019 7:16 EST [facility] Papanicolaou smear specimen (specimen) CERVIX UTERI STRUCTURE / Unknown 07/17/2019 15:45 EST 07/28/2019 13:[address] [facility] MICROBIOLOGY - GENER AL ORDERABLES [facility] [address] [place] [address] * PAP TEST (07/17/2019 15:45 EST) Specimens A. Cervix and/or Endocervix, , ThinPrep Imaging System with Manual Evaluation 07/30/2019 7:16 [facility] Specimen Adequacy Satisfactory for Evaluation - transformation zone component present 07/30/2019 7:16 [facility] General Categorization Negative for intraepithelial lesion or malignancy 07/30/2019 7:16 [facility] Attestation By the signature below, the attending physician certifies that they have personally conducted a gross and/or microscopic examination of the described specimens and rendered or confirmed the above diagnosis. 07/30/2019 7:16 [facility] at 0716 Clinical History NONE 07/30/19 20 7:16 [facility] HPV The result for the Human Papillomavirus (HPV) Detection-High Risk Types is Positive . E6 OR E7 mRNA from one or more types of HPV types 16,18,31,33,35,39 ,45,51,52,56,58,5 9,66, and 68 is detected by supervisory civil engineer mediated amplification. High and intermediate risk HPV types are associated with most squamous intraepithelial lesions and cervical cancers. Testing was performed on specimen [id number] and was resulted on 07/29/2019 2147 EST by ZAYNAB, LAB INSTRUMENT RESULTS IN 07/30/2019 7:16 [facility] Scanned Images 07/30/2019 7:16 [facility] Papanicolaou smear specimen (specimen) CERVIX UTERI STRUCTURE / Unknown 07/17/2019 15:45 EST 07/20/2019 10:49 EST Lexi WILLSONP PATHOLOGY ORDERABLES [facility] [address] [place] [address] documented in this encounter Visit Diagnoses Diagnosis Encounter for other general examination documented in this encounter
--- OUTSIDE RECORDS SUMMARY | 2024-01-23 10:02 | XMS_ITS | Encounter Summary ---
Author Organization [facility] [place] [address] Care Team Providers Care Loop Drier Operator Name Role Phone None Primary Care Provider Unavailabl e Reason for Visit * Reason Onset Date Comments Questions 03/24/2013 Encounter Details Date Type Department Care Team (Late st Contact Info) Description 03/24/2013 Telephone Obstetrics [place] [phone] Anabella Haynes, RN Questions Social History Tobacco Use Types Packs/Day Years Used Date Smoking Tobacco: Former Alcohol Use Standard Drinks/Week Comments No 0 (1 standard drink = 0.6 oz pur e alcohol) Sex and Gender Information Value Date Recorded Sex Assigned at Not on file Gender Identity Not on file Sexual Orientation Not on file documented as of this encounter Miscellaneous Notes * Telephone Encounter - Anabella Haynes RN - 03/24/2013 3:02 PM EDT TELEPHONE NOTE Caller: Patient Reason for call: Patient is calling with complaints of post coital bleeding that has been happeningoff and on for a few months. She denies any discharge, itching,urning or pain. She has a new partner. Plan/Instructions: Patient will come next Sunday 04/01 at 11:[address] Cooper. The patient is in agreement with this plan. documented in this encounter Plan of Treatment Not on file documented as of this encounter Visit Diagnoses Not on filedocumented in this encounter Care Teams Loop Drier Operator Relationship Specialty Start Date End Date None None PCP - General 10/04/10 documented as of this encounter
--- OUTSIDE RECORDS SUMMARY | 2024-01-23 10:02 | XMS_ITS | Encounter Summary ---
Author Organization [facility] Address [address] [place] [address] Care Team Providers Care Commission Sales Associate Name Role Phone Unavailable Primary Care Provider Unavailabl e Encounter Details Date Type Department Care Team (Late st Contact Info) Description 01/27/2021 Lab Requisition [facility] Pathology & Laboratory Medicine - [facility] [address] [place] [address] Outr Resulting Lab, Provider Social History Tobacco Use Types Packs/Day Years Used Date Smoking Tobacco: Never Assessed Interpersonal Safety Answer Date Record ed Physically Hurt Never 04/26/2020 Verbally Threaten Not on file 04/26/2020 Sex and Gender Information Value Date Recorded Sex Assigned at Not on file Gender Identity Not on file Sexual Orientation Not on file documented as of this encounter Plan of Treatment Not on file documented as of this encounter Procedures Procedure Name Priority Date/Time Associated Diagnosis Comments ZZCOVID-19 TEST [facility] PCR Today 01/26/2021 12:40 EDT COVID-19 TESTING Routine 01/26/2021 12:4 0 EDT documented in this encounter Results * COVID-19 TEST [facility] PCR (01/26/2021 12:40 EDT) Swab ENTIRE NASOPHARYNX / Unknown 01/26/2021 12:40 EDT 01/27/2021 21:03 EDT Provider Outr Resulting Lab MICROBIOLOGY - GENERAL ORDERABLES [facility] [address] [place] [address] * COVID-19 TESTING (01/26/2021 12:40 EDT) COVID-19 rt-PCR Result Negative Negative 01/28/2021 11:31 EDT [facility] Comment: This test has not been FDA cleared or approved. This test has been authorized by FDA under an EUA for use by authorized laboratories. This test has been authorized only for detection of nucleic acid from 2019-nCoV, not for any other viruses or pathogens. This test is only authorized for the duration of the declaration that circumstances exist justifying the authorization of emergency use of in vitro diagnostic tests for detection and/or diagnosis of 2019-nCoV under section 564(b)(1) of Act, 21 U.S.C ?? 360bbb-3(b) (1), unless the authorization is terminated or revoked sooner. Negative results do not preclude 2019-nCoV infection and should not be used as the sole basis for treatment or other patient management decisions. Negative results must be combined with clinical observations, patient history, and epidemiological information. Testing was performed using the patti SARS-CoV-2 assay ([employer] on the Patti 6800 System Performing Lab Patti [address] [facility] Lab 01/28/2021 11:31 EDT [facility] Swab 01/26/2021 12:4 0 EDT 01/27/2021 21:03 EDT Provider Outr Resulting Lab MICROBIOLOGY - GENERAL ORDERABLES [facility] [address] [place] [address] documented in this encounter Visit Diagnoses Not on filedocumented in this encounter
--- OUTSIDE RECORDS SUMMARY | 2024-01-23 10:02 | XMS_ITS | Referral Summary ---
Author Organization [facility] Address [address] [place] [address] Care Team Providers Care Acquisition Cost Estimator Name Role Phone Unavailable Primary Care Provider Unavailabl e Social History Tobacco Use Types Packs/Day Years Used Date Smoking Tobacco: Never Assessed Interpersonal Safety Answer Date Record ed Physically Hurt Never 04/26/2020 Verbally Threaten Not on file 04/26/2020 Sex and Gender Information Value Date Recorded Sex Assigned at Not on file Gender Identity Not on file Sexual Orientation Not on file Plan of Treatment Not on file
--- OUTSIDE RECORDS SUMMARY | 2024-01-23 10:02 | XMS_ITS | Encounter Summary ---
Author Organization [facility], [facility] Address [facility] [place] [address] Care Team Providers Care Oil Winterizer Name Role Phone None Primary Care Provider Unavailabl e Reason for Visit * Reason Comments Other Encounter Details Date Type Department Care Team (Late st Contact Info) Description 04/02/2013 Telephone Obstetrics [place] [address] Eliz Conley MD [facility] DR OBSTETRICS & [place] [address] Social History Tobacco Use Types Packs/Day Years Used Date Smoking Tobacco: Some Days Smokeless Tobacco: Never Alcohol Use Standard Drinks/Week Comments No 0 (1 standard drink = 0.6 oz pur e alcohol) Sex and Gender Information Value Date Recorded Sex Assigned at Not on file Gender Identity Not on file Sexual Orientation Not on file documented as of this encounter Miscellaneous Notes * Telephone Encounter - Eliz Conley MD - 04/02/2013 3:47 PM EDT Called patient with results of biopsy. ---Pathologic Diagnosis--- Benign cervical polyp with extensive squamous metaplasia and hyperkeratosis. Discussed that no treatment is required for this, but if she continues to have post-coital bleedingthat is symptomatic, we can do a shave removal with LEEP. She will monitor her symptoms and call ifshe desires it to be removed. Discussed plan with Dr. Christopher CONLEY MD, PGY4 documented in this encounter Plan of Treatment Not on file documented as of this encounter Visit Diagnoses Not on filedocumented in this encounter Care Teams Oil Winterizer Relationship Specialty Start Date End Date None None PCP - General 10/04/10 documented as of this encounter
--- OUTSIDE RECORDS SUMMARY | 2024-01-23 10:02 | XMS_ITS | Clinical Summary ---
Author Organization [facility] Address [facility] [place] [address] Care Team Providers Care Grab Driver Name Role Phone None Primary Care Provider Unavailabl e Allergies Active Allergy Reactions Criticality Noted Date Comments Penicillins Other (See Comments) Low 10/05/2010 Pt's skin became red/flushed with administration of Penicillin Medications Medication Sig Dispensed Refills Start Date End Date Status levonorgestrel-ethiny l estradiol (AVIANE;ALESSE;LESSIN A) 0.1-20 mg-mcg per tablet Take 1 tablet by mouth daily. 84 tablet 3 04/01/2013 Active Active Problems No known active problems Resolved Problems Problem Noted Date Diagnosed Date Resolved Date state, incidental 10/04/2010 0 11/27/2010 Overview (03/02/2012): Dx replacement utility run on deactivated IMO Dx [id number] premature rupture of membranes 10/04/10/ at 35 wks nonreas FHS 10/04/2010 08/30/2011 Immunizations Name Administration Dates Next Due Tdap 10/16/2010 Family History Medical History Relation Comments Pancreatic Cancer Maternal Grandfather Thyroid Disease Mother Hypothyroid Alzheimer Disease Paternal Grandfather Relation Status Comments Maternal Grandfather Mother Paternal Grandfather Social History Tobacco Use Types Packs/Day Years Used Date Smoking Tobacco: Some Days Smokeless Tobacco: Never Alcohol Use Standard Drinks/Week Comments No 0 (1 standard drink = 0.6 oz pur e alcohol) Sex and Gender Information Value Date Recorded Sex Assigned at Not on file Gender Identity Not on file Sexual Orientation Not on file Last Filed Vital Signs Vital Sign Reading Time Taken Comments Blood Pressure 136/78 04/21/2013 1:46 PM EST Pulse 112 04/01/2013 11:20 AM EDT Temperature 36.6 ??C (97.9 ??F) 10/16/2010 7:36 AM ED T Respiratory Rate 16 10/16/2010 7:36 AM EDT Oxygen Saturation 98% 10/15/2010 8:54 PM EDT Inhaled Oxygen Concentration - - Weight 90.7 kg (200 lb) 04/01/2013 11:20 AM EDT Height 161.3 cm (5' 3.5) 04/21/2013 1:46 PM EST Body Mass Index 34.87 04/01/2013 11:20 AM EDT Plan of Treatment Health Maintenance Due Date Last Done Comments HIV screen 2006 Hepatitis C Screening 2006 Hepatitis B vaccine (0-59 yrs) (1) 11/21/2007 HPV test 2018 PAP Smear 2018 04/21/2012 Tetanus vaccine 10/16/2020 10/16/2010 Covid-19 Vaccine (1 - 2022-24 season) 2023 Influenza (Flu) vaccine (1 o f 1 - Influenza standard series) 02/02/2024 Tdap adult Completed 10/16/2010 Procedures Procedure Name Priority Date/Time Associated Diagnosis Comments ASSOCIATE PROFESSOR OF PHILOSOPHY CYTOLOGY FINAL REPORT Routine 04/21/2012 10:21 AM EST from Last 3 Months or Most Recently Relevant to Health Maintenance Results * ASSOCIATE PROFESSOR OF PHILOSOPHY CYTOLOGY FINAL REPORT (04/21/2012 10:21 AM EST) General Manager Farm Cytology Final Report ? [facility] ? Provider: ?? GEE LOJA ??Pt. Name: ?? CHRIS GONZALEZ ? Acc #: ?Pt. ? Col Date: ?? 04/21/2012 ?/Sex: ?1990,(21 years),Female ? Rec Date: ?? 04/21/2012 ?LOC: ?5L ? CYTOPATHOLOGY: ??ASSOCIATE PROFESSOR OF PHILOSOPHY ? ---Adequacy--- ? Specimen submitted is satisfactory. ? Endocervical component present. ? ---Cytopathologic Diagnosis--- ? NORMAL ? Negative for Intraepithelial Lesion or Malignancy (NILM). ? 04/23/12 ?? Screened by: ??LKC ? 04/23/12 ?? Verified by: ??Bernard CT(ASCP), Glendy K - Knife Blade Polisher ? ---Clinical Information--- ? HPV Option: ? Reflex HPV ? Preparation: ?Liquid Based Pap ? Specimen Source: ?Cervical Endocervical LBP ? LMP: ?IUD ? Hormones?: ?Yes ? Hysterectomy?: ?No ?: ?No ?: ?No ? I.U.D.?: ?Yes ? Pelvic Radiation: ? No ? Prior ASSOCIATE PROFESSOR OF PHILOSOPHY Therapy?: ? No ? Hist Abnl Pap/Biopsy?: ??No ? Hist of HPV Vaccine?: ?? Yes ? Hist of Smoking?: ? Yes ? Hist of MI exposure?: ??No ? Clinical Data, Significant Therapy and Clinical Impression: ? This Pap Test has been evaluated with the assistance of the ThinPrep Pap ? Test Imaging System. ? Note: ? The Pap test is a screening test for cervical cancer with an inherent ? false-negative rate dependent upon several variables. ??For further ? information please contact the [facility] Laboratory. ? Reference: ??Liz BERNAL. ??Solid Waste Technician of Pap Smear Results. ??In: ? Malia BS, [facility], ed. ??The Pap Smear. ??[place]: ??Larry, 2002: ? 71-77. DALE BECERRIL 04/21/2012 10:2 1 AM EST Gee Loja MD PATHOLOGY/CYTOLOGY ORDERABLES DALE BECERRIL from Last 3 Months or Most Recently Relevant to Health Maintenance Advance Directives * Full Code (Latest Code Status on File) Date Activated Date Inactivated Comments 10/07/2010 12:37 PM 10/16/2010 8:20 PM Question Answer Comments Order Status: Initial Order Does patient have decision m aking capacity? Yes, Order is based on Patients wishes. * Full Code Date Activated Date Inactivated Comments 10/04/2010 9:42 PM 10/07/2010 12:37 PM Question Answer Comments Order Status: Initial Order Does patient have decision m aking capacity? Yes, Order is based on Patients wishes. * Full Code Date Activated Date Inactivated Comments 10/04/2010 12:27 PM 10/04/2010 9:42 PM Question Answer Comments Order Status: Initial Order Does patient have decision m aking capacity? Yes, Order is based on Patients wishes. Care Teams Grab Driver Relationship Specialty Start Date End Date None None PCP - General 10/04/10
--- OUTSIDE RECORDS SUMMARY | 2024-01-23 10:02 | XMS_ITS | Encounter Summary ---
Author Organization [facility] Address [address] [place] [address] Care Team Providers Care Cardiologist Name Role Phone Unavailable Primary Care Provider Unavailabl e Encounter Details Date Type Department Care Team (Latest Contact Info) Description 02/06/2022 Lab Requisition [facility] Pathology & Laboratory Medicine - [facility] [address] [place] [address] Shelly Paez FNP [address] [place], [place] [address] Encounter for general adult medical examination without abnormal findings; Encounter for screening for malignant neoplasm of cervix; Encounter for screening for human papillomavirus (HPV) Social History Tobacco Use Types Packs/Day Years [...] Date/Time Associated Diagnosis Comments PAP TEST Today 02/02/2022 13:15 EDT Encounter for general adult medical examination without abnormal findings Encounter for screening for malignant neoplasm of cervix Encounter for screening for human papillomavirus (HPV) HPV GENOTYPES 16 AND 18/45 Today 02/02/2022 13:15 EDT Encounter for general adult medical examination without abnormal findings Encounter for screening for malignant neoplasm of cervix Encounter for screening for human papillomavirus (HPV) HPV DNA DETECTION WITH GENOTYPING, PCR Today 02/02/2022 13:15 EDT Encounter for general adult medical examination without abnormal findings Encounter for screening for malignant neoplasm of cervix Encounter for screening for human papillomavirus (HPV) documented in this encounter Results * HPV GENOTYPES 16 AND 18/45 (02/02/2022 13:15 EDT) HPV High Risk type 16, PCR Negative Negative 02/15/2022 14:23 EDT [facility] HPV18/45 RNA (HPV18/45) Negative Negative 02/15/2022 14:23 EDT [facility] Papanicolaou smear specimen (specimen) CERVIX UTERI STRUCTURE / Unknown 02/02/2022 13:15 EDT 02/09/2022 7:40 EDT Shelly Philippe WILLSONP MICROBIOLOGY - GENER AL ORDERABLES Performing Organization Address [facility] Co de Phone Number [facility] [address] [place] [address] * (ABNORMAL) HUMAN PAPILLOMAVIRUS (HPV) DETECTION-HIGH RISK TYPES (02/02/2022 13:15 EDT) HPV other High Risk types, PCR Positive( A) Negative 02/15/2022 14:23 EDT [facility] Comment:E6 OR E7 mRNA from o ne or more types of HPV types 16,18,31,33,35,39,45,51,52,56,58,59,66, and 68 is detected by public health clinical nurse specialist mediated amplification. High and intermediate risk HPV types are associated with most squamous intraepithelial lesions and cervical cancers. Papanicolaou smear specimen (specimen) CERVIX UTERI STRUCTURE / Unknown 02/02/2022 13:15 EDT 02/09/2022 7:40 EDT Shelly WILLSONP MICROBIOLOGY - GENER AL ORDERABLES Performing Organization Address [facility] Co de Phone Number [facility] [address] [place] [address] * PAP TEST (02/02/2022 13:15 EDT) Specimens A. Cervix and/or Endocervix , ThinPrep Imaging System with Manual Evaluation 02/15/2022 14:23 EDT [facility] Specimen Adequacy Satisfactory for Evaluation - transformation zone component present 02/15/2022 14:23 EDT [facility] General Categorization Negative for intraepithelial lesion or malignancy 02/15/2022 14:23 T [facility] Descriptive Diagnosis Shift in harry present suggestive of bacterial vaginosis. 02/15/2022 14:23 EDT [facility] Attestation . 02/15/2022 14:23 EDT [facility] at 1423 Clinical History SEE BELOW 02/16/20 14:23 EDT [facility] HPV The result for the Human Papillomavirus (HPV) Detection-High Risk Types is Positive . E6 OR E7 mRNA from one or more types of HPV types 16,18,31,33,35,39 ,45,51,52,56,58,5 9,66, and 68 is detected by public health clinical nurse specialist mediated amplification. High and intermediate risk HPV types are associated with most squamous intraepithelial lesions and cervical cancers. Testing was performed on specimen [id number] and was resulted on 02/10/2022 1116 EDT by ZAYNAB, LAB INSTRUMENT RESULTS IN 02/15/2022 14:23 EDT [facility] Genotyping 16 & 18/45 The results for the HPV Genotypes 16 and 18/45 are Negative for the HPV16 RNA and Negative for the HPV18/45 RNA (HPV18/45). Testing was performed on specimen [id number] and was resulted on 02/15/2022 1420 EDT by ZAYNAB, LAB INSTRUMENT RESULTS IN 02/15/2022 14:23 EDT [facility] Performing Lab [facility] 02/15/2022 14:23 EDT [facility] Scanned Images 02/15/2022 14:23 EDT [facility] Papanicolaou smear specimen (specimen) CERVIX UTERI STRUCTURE / Unknown 02/02/2022 13:15 EDT 02/06/2022 11:52 EDT Shelly NELSON PATHOLOGY ORDERABLES [facility] [address] [place] [address] documented in this encounter Visit Diagnoses Diagnosis Encounter for general adult medical examination without abnormal findings Unspecified general medical examination Encounter for screening for malignant neoplasm of cervix Screening for malignant neoplasm of the cervix Encounter for screening for human papillomavirus (HPV) Special screening examination for human papillomavirus (HPV) documented in this encounter
--- OUTSIDE RECORDS SUMMARY | 2024-01-23 10:02 | XMS_ITS | Clinical Summary ---
Author Organization [facility] Address [address] [place] [address] Care Team Providers Care Agricultural Scientist Name Role Phone Unavailable Primary Care Provider [...] Orientation Not on file Plan of Treatment Health Maintenance Due Date Last Done Comments Hepatitis C Screen 1990 Hepatitis B Vaccine (1 of 3 - 19+ 3-dose series) 11/20 COVID-19 Vaccine (2022- season) 2023
--- OUTSIDE RECORDS SUMMARY | 2024-01-23 10:02 | XMS_ITS | Encounter Summary ---
Author Organization [facility] Address [facility] [place] [address] Care Team Providers Care Hand Flesher Name Role Phone None Primary Care Provider Unavailabl e Reason for Visit * Reason Comments Gynecologic Exam Encounter Details Date Type Department Care Team (Late st Contact Info) Description 04/21/2012 8:30 AM EST Office Visit Obstetrics [place] [phone] Gee Loja MD [facility] DR OBSTETRICS & [place] [address] Screening (Primary Dx) Discharge Disposition: Home Social History Tobacco Use Types Packs/Day Years Used Date Smoking Tobacco: Former Alcohol Use Standard Drinks/Week Comments No 0 (1 standard drink = 0.6 oz pur e alcohol) Sex and Gender Information Value Date Recorded Sex Assigned at Not on file Gender Identity Not on file Sexual Orientation Not on file documented as of this encounter Last Filed Vital Signs Vital Sign Reading Time Taken Comments Blood Pressure 124/66 04/21/2012 8:36 AM EST Pulse - - Temperature - - Respiratory Rate - - Oxygen Saturation - - Inhaled Oxygen Concentration - - Weight 93.4 kg (206 lb) 04/21/2012 8:36 AM EST Height 160 cm (5' 3) 04/21/2012 8:36 AM EST Body Mass Index 36.49 04/21/2012 8:36 AM EST documented in this encounter Progress Notes * Gee Loja MD - 04/21/2012 8:58 AM EST Chris Chandler is a 21-year-old, para 1 patient, who is here for INSPECTOR PRINTED CIRCUIT BOARDS review. She had a last year at 35 weeks with nonreassuring heart rate. Baby is doing well. She then had a Mirena IUD placed by myself at six weeks . Menses are nonexistent and she is doing well. 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 She is not sure when she had her last Pap smear, and it was done in [place], so we will do one. She had gone out to [place] to be with her boyfriend. She then got and came back with her boyfriend to be closer to be closer to her family. She is living with her boyfriend at the present time. On physical examination, she is well, although mildly overweight. Examination of the head and neck, cardiovascular, and respiratory systems are normal. Breasts and axillae are normal. Abdomen and groin are negative. Vulva, vagina and cervix are normal, except for an approximately 0.5 cm nabothian cyst at one o'clock on the cervix near the exocervix. The string is visible. A Pap smear is taken. The uterus is retroverted and normal, and the adnexa is unremarkable. Pap smear is pending. If Pap smear is normal, she can have her next Pap smear in three years. documented in this encounter Plan of Treatment Not on file documented as of this encounter Procedures Procedure Name Priority Date/Time Associated Diagnosis Comments INSPECTOR PRINTED CIRCUIT BOARDS CYTOLOGY FINAL REPORT Routine 04/21/2012 10:21 AM EST CYTOPATHOLOGY GYNECOLOGICAL Routine 04/21/2012 8:49 AM EST Screening documented in this encounter Results * INSPECTOR PRINTED CIRCUIT BOARDS CYTOLOGY FINAL REPORT (04/21/2012 10:21 AM EST) Opener Cytology Final Report ? [facility] ? Provider: ?? GEE LOJA ??Pt. Name: ?? LISA CHRIS M ? Acc #: ?Pt. ? Col Date: ?? 04/21/2012 ?/Sex: ?1990,(21 years),Female ? Rec Date: ?? 04/21/2012 ?LOC: ?5L ? CYTOPATHOLOGY: ??INSPECTOR PRINTED CIRCUIT BOARDS ? ---Adequacy--- ? Specimen submitted is satisfactory. ? Endocervical component present. ? ---Cytopathologic Diagnosis--- ? NORMAL ? Negative for Intraepithelial Lesion or Malignancy (NILM). ? 04/23/12 ?? Screened by: ??LKC ? 04/23/12 ?? Verified by: ??Bernard CT(ASCP), Glendy K - Restaurant District Manager ? ---Clinical Information--- ? HPV Option: ? Reflex HPV ? Preparation: ?Liquid Based Pap ? Specimen Source: ?Cervical Endocervical LBP ? LMP: ?IUD ? Hormones?: ?Yes ? Hysterectomy?: ?No ?: ?No ?: ?No ? I.U.D.?: ?Yes ? Pelvic Radiation: ? No ? Prior INSPECTOR PRINTED CIRCUIT BOARDS Therapy?: ? No ? Hist Abnl Pap/Biopsy?: [...] ??For further ? information please contact the [facility] Laboratory. ? Reference: ??Liz CS. ??Kids Club Attendant of Pap Smear Results. ??In: ? Malia BS, [facility], ed. ??The Pap Smear. ??[place]: ??Larry, 2002: ? 71-77. DALE BECERRIL 04/21/2012 10:2 1 AM EST Gee Loja MD PATHOLOGY/CYTOLOGY ORDERABLES Performing Organization Address [facility] de Phone Number DALE EDINJUDI * Cytopathology Gynecological (04/21/2012 8:49 AM EST) AP Specimen 04/21/2012 8:49 AM EST 04/21/2012 8:49 AM EST Narrative DALE LEVYIUM - 04/21/2012 8:49 AM EST Specimen requisition ordered. ??Separate Pathology report to follow Gee Loja MD PATHOLOGY/CYTOLOGY ORDERABLES Performing Organization Address [facility] Co de Phone Number DALE EDINJUDI documented in this encounter Visit Diagnoses Diagnosis Screening- Primary Screening for unspecified condition documented in this encounter Care Teams Hand Flesher Relationship Specialty Start Date End Date None None PCP - General 10/04/10 documented as of this encounter
--- OUTSIDE RECORDS SUMMARY | 2024-01-23 10:02 | XMS_ITS | Encounter Summary ---
Author Organization [facility]ly [facility] Address [facility] [place] [address] Care Team Providers Care Personnel Interviewer Name Role Phone None Primary Care Provider Unavailabl e Reason for Visit * Reason Comments Procedure Encounter Details Date Type Department Care Team (Latest Contact Info) Description 04/21/2013 2:00 PM EST Procedure visit Obstetrics [place] [address] Eliz Conley MD [facility] [address] OBSTETRICS & [place] [address] Tobias Pabon MD [facility] [place] [address] Cervical polyp Discharge Disposition: Home Social History Tobacco Use [...] Pressure 136/78 04/21/2013 1:46 PM EST Pulse - - Temperature - - Respiratory Rate - - Oxygen Saturation - - Inhaled Oxygen Concentration - - Weight - - Height 161.3 cm (5' 3.5) 04/21/2013 1:46 PM EST Body Mass Index - - documented in this encounter Progress Notes * Gee Loja MD - 05/04/2013 7:59 AM EST The case was discussed with Dr. Conley at the time of the visit or immediately after the visit. The assessment and plan were formulated in discussion with me and I agree with them as documented. * Eliz Conley MD - 04/27/2013 10:54 AM EST Procedure Note Chris Gonzalez is here LEEP removal of cervical polyp. Patient was seen in clinic 2 weeks ago for removal of Mirena. She also noted post-coital bleeding and was found to have a 5 mm raised nodular lesion at 3 o'clock with abnormal vascular pattern, appears to be arising from SCJ. A biopsy was taken and was found to be Benign cervical polyp with extensive squamous metaplasia and hyperkeratosis. The polyp was too large to be removed with tischler forceps, but she was given the option after the pathology returned, to have the entire polyp removed via LEEP. She has elected to proceed with LEEP removal. Urine test: negative Immediately prior to the start of the procedure, I confirmed the patient's identity, intended procedure, and insured that the proper equipment was present for the procedure. On exam, external genitalia normal, no warts seen. Speculum inserted: Polyp visualized at 3 'clock arising from within the cervical canal. 10 cc of 1% lidocaine was injected at the face of the cervix. A small loop was used to excise from intracervical canal at the base of the cervical polyp. The ball cautery was then used to attain hemostasis. A small amount of monsels solution was applied, although there was no bleeding evident. Plan: Check results, will contact patient with results. Dr. Loja was present was the entire procedure. ELIZ CONLEY MD, PGY4 documented in this encounter Plan of Treatment Not on file documented as of this encounter Procedures Procedure Name Priority Date/Time Associated Diagnosis Comments SPECIMEN TO PATHOLOGY (NON-OR) Routine 04/21/2013 5:04 PM EST Cervical polyp SURGICAL PATHOLOGY REPORT Routine 04/21/2013 5:04 PM EST POCT URINE Routine 04/21/2013 Cervical polyp documented in this encounter Results * Surgical Pathology Report (04/21/2013 5:04 PM EST) Surgical Pathology Report ? [facility] ? Provider: ?? ELIZ CONLEY ?? Pt. Name: ?? CHRIS GONZALEZ ? Acc #: ?[id number] ?Pt. ? Col Date: ?? 04/21/2013 ?/Sex: ?1990,(22 years),Female ? Rec Date: ?? 04/21/2013 ?LOC: ?5L ? SURGICAL PATHOLOGY ? ---Pathologic Diagnosis--- ? Benign cervical polyp (excision) with squamous ? metaplasia, chronic inflammation, hyperkeratosis, ? parakeratosis, and Nabothian cysts. ? CR-0 ? 04/22/13 ? JLG ? 04/22/13 Verified by: ? Tobias aPbon MD ? Pathologist ? (Electronic Signature) ? The attending pathologist whose signature appears on this report has ? reviewed all diagnostic slides and has edited the gross and/or ? microscopic portion of the report in rendering the final pathologic ? diagnosis. ? ---Gross Description--- ? A - Labeled/Fixativ e: Patient demographics, formalin. ? Quantity/Size: Single, 1.0 x 0.6 x 0.4 cm wedge of cervical mucosa. ? Tissue Description: On examination the mucosa is pale pink-boyer. ? The specimen is unoriented. ? Sections/Proces sing: The margin is marked with black ink, serially ? sectioned and totally submitted. (T3) ??pps ? ---Clinical Information--- ? Specimen Submitted: ? A - Cervix ? Clinical History: ? Postcoital bleeding with cervical polyp ? Clinical Diagnosis: ? [facility] 04/21/2013 5:04 PM EST Eliz Conley MD PATHOLOGY/CYTOLOGY O RDERABLES [facility] * Specimen to Pathology (NON-OR) (04/21/2013 5:04 PM EST) AP Specimen 04/21/2013 5:04 PM EST 04/21/2013 5:04 PM EST [facility]ative [facility] - 04/21/2013 5:04 PM EST Specimen requisition ordered. ??Separate Pathology report to follow Gee Loja MD PATHOLOGY/CYTOLOGY ORDERABLES [facility] * POCT urine (04/21/2013) POC Urine HCG Negative Negative - Negative POC Control Internal Controls Acceptable Gee Loja MD POINT OF CARE TEST ORDERABLES documented in this encounter Visit Diagnoses Diagnosis Cervical polyp Mucous polyp of cervix documented in this encounter Care Teams Personnel Interviewer Relationship Specialty Start Date End Date None None PCP - General 10/04/10 documented as of this encounter
--- OUTSIDE RECORDS SUMMARY | 2024-01-23 10:02 | XMS_ITS | Encounter Summary ---
Author Organization [facility] Address [address] [place] [address] Care Team Providers Care Head Of Product Name Role Phone Unavailable Primary Care Provider Unavailabl e Encounter Details Date Type Department Care Team (Late st Contact Info) Description 07/17/2019 Lab Requisition [facility] Pathology & Laboratory Medicine - [facility] [address] [place] [address] Unknown, Provider, Social History Tobacco Use Types Packs/Day Years Used Date Smoking Tobacco: Never Assessed Sex and Gender Information Value Date Recorded Sex Assigned at Not on file Gender Identity Not on file Sexual Orientation Not on file documented as of this encounter Plan of Treatment Not on file documented as of this encounter Procedures Procedure Name Priority Date/Time Associated Diagnosis Comments CHLAMYDIA/N. GONORRHOEAE AMPLIFIED NUCLEIC ACID Routine 07/17/2019 15:45 EST documented in this encounter Results * CHLAMYDIA/N. GONORRHOEAE AMPLIFIED RNA (07/17/2019 15:45 EST) Neisseria gonorrhoeae Result Negative Negative 07/20/2019 13:18 EST [facility] Chlamydia trachomatis Result Negative Negative 07/20/2019 13:18 EST [facility] Swab ENTIRE ENDOCERVIX / Unknown 07/17/2019 15:45 EST 07/17/2019 22:00 EST Provider Unknown MICROBIOLOGY - GENER AL ORDERABLES [facility] [address] [place] [address] documented in this encounter Visit Diagnoses Not on filedocumented in this encounter
--- OUTSIDE RECORDS SUMMARY | 2024-01-23 10:02 | XMS_ITS | Encounter Summary ---
Author Organization [facility] Address [facility] [place] [address] Care Team Providers Care Mortgage Loan Underwriter Name Role Phone None Primary Care Provider Unavailabl e Reason for Visit * Reason Comments Care Possible IUD Encounter Details Date Type Department Care Team (Late st Contact Info) Description 11/27/2010 8:00 AM EDT Visit Obstetrics [place] [address] Gee Loja MD [facility] DR OBSTETRICS & [place] [address] care and examination (Primary Dx) Discharge Disposition: Home Social History Tobacco Use Types Packs/Day Years Used Date Smoking Tobacco: Never Alcohol Use Standard Drinks/Week Comments No 0 (1 standard drink = 0.6 oz pur e alcohol) Comments Yes Sex and Gender Information Value Date Recorded Sex Assigned at Not on file Gender Identity Not on file Sexual Orientation Not on file documented as of this encounter Last Filed Vital Signs Vital Sign Reading Time Taken Comments Blood Pressure 116/72 11/27/2010 8:11 AM EDT Pulse - - Temperature - - Respiratory Rate - - Oxygen Saturation - - Inhaled Oxygen Concentration - - Weight 87.2 kg (192 lb 4.8 oz) 11/27/2010 8:11 A M EDT Height - - Body Mass Index - - documented in this encounter Progress Notes * Gee Loja MD - 11/27/2010 8:48 AM EDT Subjective: Steffanie is six weeks' . She had spontaneous ruptured membranes at 33 plus 5. Induction was begun the next day, but she did not make any progress. She was kept in the hospital for another week, and at 35 weeks induction was started again. At some point in the induction she had a non-reassuring heart strip, and section was undertaken. She is breast feeding and pumping, and is doing well. Depression is not an issue. She wants a Mirena IUD for contraception. She has Medicaid for insurance. She has not been sexually active. Review of Systems: Negative. She had a Pap smear, apparently at the beginning of this elsewhere, so her Pap smear is due next year. She has never had any precancer. Objective: On physical examination, she is well. Examination of the head and neck, cardiovascular and respiratory systems are normal. Abdomen and groin are negative. Incision is well healed. All of the vagina and cervix, except for atrophy, are normal. She does have a 5-mm nabothian cyst on the anterior lip of the cervix. The cervix is quite small. Uterus is axial normal. The adnexa are unremarkable. Speculum was then replaced. Betadine was used to cleanse the cervix. Lidocaine 2% was placed into the anterior lip of the cervix and a tenaculum used to grasp the cervix. Cervix was essentially dilated and the uterus was retroverted with dilation. Mirena IUD was placed without problems and the string trimmed 3 cm distal to the external os. Expected bleeding pattern and infection precautions were discussed with her. documented in this encounter Miscellaneous Notes * Miscellaneous - Delilah Virk - 12/06/2010 10:02 AM EDT documented in this encounter Plan of Treatment Scheduled Orders Name Type Priority Associated Diagnoses Orde r Schedule IUD INSERTION OB Routine care and examination Ordered: 11/27/2010 documented as of this encounter Visit Diagnoses Diagnosis care and examination- Primary Routine follow-up documented in this encounter Care Teams Mortgage Loan Underwriter Relationship Specialty Start Date End Date None None PCP - General 10/04/10 documented as of this encounter
--- OUTSIDE RECORDS SUMMARY | 2024-01-23 10:02 | XMS_ITS | Encounter Summary ---
Author Organization [facility]ending [facility] To [facility] Address [facility] [place] [address] Care Team Providers Care Package Reinspector Name Role Phone None Primary Care Provider Unavailabl e Reason for Visit * Reason Comments Vaginal Bleeding post-coital spotting Encounter Details Date Type Department Care Team (Late st Contact Info) Description 04/01/2013 11:30 AM EDT Office Visit Obstetrics [place] [address] Eliz Conley MD [facility] DR OBSTETRICS & [place] [address] Post - coital bleeding (Primary Dx); Vaginal discharge; Bacterial vaginosis Discharge Disposition: Home Social History Tobacco Use [...] Sign Reading Time Taken Comments Blood Pressure 142/70 04/01/2013 11:20 AM EDT Pulse 112 04/01/2013 11:20 AM EDT Temperature - - Respiratory Rate - - Oxygen Saturation - - Inhaled Oxygen Concentration - - Weight 90.7 kg (200 lb) 04/01/2013 11:20 AM EDT Height 161.3 cm (5' 3.5) 04/01/2013 11:20 AM ED T Body Mass Index 34.87 04/01/2013 11:20 AM EDT documented in this encounter Progress Notes * Sosa Hi MD - 04/01/2013 1:47 PM EDT I saw and evaluated Chris Gonzalez. I agree with the findings and the plan of care as documented in the resident's note. SOSA HI MD I was present and participated during the entire procedure. SOSA HI MD * Eliz Conley MD - 04/01/2013 11:49 AM EDT Acute Office Visit Patient Name: Chris Gonzalez Date of : 1990 Primary Care Provider: None Date of Visit: 04/01/2013 Reason for Visit: CHRIS GONZALEZ is a 22 y.o. female who presents with post-coital spotting Subjective: She has been with current partner for last 4 months. She has not been tested for STDs. No history of STDs. At first she was only having intermittent bleeding after intercourse and now shethinks its 50% of the time. It is only a small amount of spotting. This past week she had bleeding with intercourse - which seemed like a period. The following day she had no more bleeding. She has an IUD in place since November 2010. She hasn't had a period since then. She has always liked her IUD. She is thinking of getting sometime in the next 4-5 months. She would like to have IUD removed and start OCPs until getting . Last pap 04/2012 - normal. She received the complete gardasil series. Past OB-E Learning Specialist Hx: LMP No LMP recorded. Patient is not currently having periods (Reason: IUD). PMSHx: No past medical history on file. Past Surgical History Procedure Date ??? delivery only 10/13/2010 ?? DELIVERY performed by CAY[facility] CADET at [facility] Family History Problem Relation Age of Onset ??? Thyroid Disease Mother Hypothyroid ??? Pancreatic Cancer Maternal Grandfather ??? Alzheimer Disease Paternal Grandfather History Social History ??? Marital Status: Single Spouse Name: N/A Number of Children: N/A ??? Years of Education: N/A Occupational History ??? Not on file. Social History Main Topics ??? Smoking status: Current Some Day Smoker ??? Smokeless tobacco: Never Used ??? Alcohol Use: No ??? Drug Use: No ??? Sexually Active: Not Currently Other Topics Concern ??? Not on file Social History Narrative ??? No narrative on file Current Meds: levonorgestrel (MIRENA) 20 mcg/24 hr IUD Allergies: Allergies Allergen Reactions ??? Penicillins Other (See Comments) Pt's skin became red/flushed with administration of Penicillin Objective: Filed Vitals: 04/01/13 1120 BP: 142/70 Pulse: 112 General - appears well, in no distress Pelvic exam External Genitalia - no lesions or excoriations Urethral meatus - without prolapse Vagina - discharge present with strong fishy odor. Cervix - strings present - grasped with ringed forceps and removed IUD intact. 5 mm raised nodular lesion at 3 o'clock with abnormal vascular pattern, appears to be arising from SCJ After obtaining verbal consent, a biopsy was taken of the nodule with tischler forceps. Hemostasis was achieved with silver nitrate. Labs: Wet prep: ++clue cells, few yeast Assessment/Plan: Chris is a 22 y.o. female with post-coital bleeding x 4 months and recentbleeding with intercourse. There was a firm nodular lesion on cervix which was biopsied - concerning for wart vs polyp vs adenocarcinoma. Will contact patient with results. Also noted fishy malodorous vaginal discharge and wet prep consistent with bacterial vaginosis - due to biopsy today will givepo flagyl (rather than vaginal) 500 mg BID x 7 days. Also, patient requested IUD to be removed - after long conversation about alternatives, she elected to have the IUD removed and start on OCPs until she desires . I have started her on a low-estrogen combined OCP (alesse). She will use additional backup method for this first month. Biopsy done with Dr. Nazario CONLEY MD, PGY4 documented in this encounter Plan of Treatment Not on file documented as of this encounter Procedures Procedure Name Priority Date/Time Associated Diagnosis Comments SPECIMEN TO PATHOLOGY (NON-OR) Routine 04/01/2013 12:21 PM EDT Post - coital bleeding SURGICAL PATHOLOGY REPORT Routine 04/01/2013 12:21 PM EDT documented in this encounter Results * Surgical Pathology Report (04/01/2013 12:21 PM EDT) Surgical Pathology Report ? [facility] ? Provider: ?? ELIZ CONLEY ?? Pt. Name: ?? CHRIS GONZALEZ ? Acc #: ?[id number] ?Pt. ? Col Date: ?? 04/01/2013 ?/Sex: ?1990,(22 years),Female ? Rec Date: ?? 04/01/2013 ?LOC: ?5L ? SURGICAL PATHOLOGY ? ---Pathologic Diagnosis--- ? Benign cervical polyp with extensive squamous metaplasia ? and hyperkeratosis. ? CR-0 ? 04/02/13 ? JLG ? 04/02/13 Verified by: ? Tobias Pabon MD ? Pathologist ? (Electronic Signature) ? The attending pathologist whose signature appears on this report has ? reviewed all diagnostic slides and has edited the gross and/or ? microscopic portion of the report in rendering the final pathologic ? diagnosis. ? ---Gross Description--- ? A - Labeled/Fixativ e: Patient's information, formalin. ? Quantity/Size: One, 0.6 cm. ? Tissue Description: Soft boyer-red tissue. ? Sections/Proces sing: (T1) ??aml ? ---Clinical Information--- ? Specimen Submitted: ? A - Cervix biopsy ? Clinical History: ? Postcoital bleeding, with exophytic lesion on cervix ? Clinical Diagnosis: ?Wart versus polyp versus cancer CERNER MILLENNIUM 04/01/2013 12:2 1 PM EDT Eliz Conley MD PATHOLOGY/CYTOLOGY O JESSIE Performing Organization Address [facility] Co de Phone Number DALE JESUSENNIUM * Specimen to Pathology (NON-OR) (04/01/2013 12:21 PM EDT) AP Specimen 04/01/2013 12:2 1 PM EDT 04/01/2013 12:21 PM EDT Narrative CERNER MILLENNIUM - 04/01/2013 12:21 PM EDT Specimen requisition ordered. ??Separate Pathology report to follow Sosa Hi MD PATHOLOGY/CYTOLOGY O JESSIE Performing Organization Address [facility] Co de Phone Number DALE BECERRIL documented in this encounter Visit Diagnoses Diagnosis Post - coital bleeding- Primary Postcoital bleeding Vaginal discharge Leukorrhea, not specified as infective Bacterial vaginosis Vaginitis and vulvovaginitis, unspecified documented in this encounter Care Teams Package Reinspector Relationship Specialty Start Date End Date None None PCP - General 10/04/10 documented as of this encounter
--- OUTSIDE RECORDS SUMMARY | 2024-01-23 10:02 | XMS_ITS | Encounter Summary ---
Author Organization [facility] Address [address] [place] [address] Care Team Providers Care Press Operator Meat Name Role Phone Unavailable Primary Care Provider Unavailabl e Encounter Details Date Type Department Care Team (Late st Contact Info) Description 11/13/2019 Lab Requisition [facility] Pathology & Laboratory Medicine - [facility] [address] [place] [address] Outr Resulting Lab, Provider Social History Tobacco [...] Procedure Name Priority Date/Time Associated Diagnosis Comments DO NOT ORDER STANDALONE - BROAD COVID TEST Today 11/13/2019 13:16 EDT COVID-19 TESTING Routine 11/13/2019 13:1 6 EDT documented in this encounter Results * DO NOT ORDER STANDALONE - BROAD COVID TEST (11/13/2019 13:16 EDT) COVID-19 rt-PCR Result NEGATIVE Negative 11/14/2019 19:36 EDT [facility] Comment: 2019-novel Coronavirus (2019-nCoV) not detected by the qRT-PCR assay. Consider testing for other respiratory viruses or re-collecting for 2019-nCoV testing. Note: Optimum timing for peak viral levels during infections caused by 2019-nCoV have not been determined. Collection of multiple specimens from the same patient may be necessary to detect the virus. Limitations Positive results are indicative of active infection with SARS-CoV-2 but do not rule out bacterial infection or co-infection with other viruses. The agent detected may not be the definite cause of disease. In addition, detection of viral RNA may not indicate the presence of infectious virus or that SARS-CoV-2 is the causative agent for clinical symptoms. Negative results do not preclude SARS-CoV-2 infection and should not be used as the sole basis for patient management decisions. Negative results must be combined with clinical observations, patient history, and epidemiological information. False negative results may also occur if amplification inhibitors are present in the specimen or if inadequate numbers of organisms are present in the specimen. Optimum specimen types and timing for peak viral levels during infections caused by SARS-CoV-2 have not been fully determined. Collection of multiple specimens (types and time points) from the same patient may be necessary to detect the virus. The test was validated for use with upper respiratory specimens obtained via nasopharyngeal or oropharyngeal swabs in VTM, UTM, M4, M5, M6, saline, and MTM media. The performance of this test has not been established for other specimens. Specimens collected using other FDA recommended Specimen Collection Materials listed in the FDA COVID-19 [employer] communication (August 27, 2019) are processed with the caveat that they were not all validated for use with this test and the result must be interpreted in this context. Furthermore, a false negative results may occur if a specimen is improperly collected, transported or handled. If the virus mutates in the RT-PCR target region, SARS-CoV-2 may not be detected or may be detected less predictably. Inhibitors or other types of interference may produce a false negative result. An interference study evaluating the effect of common cold medications was not performed. This test is not FDA-cleared but its performance characteristics were established by our CLIA-certified, CAP-accredited, high complexity laboratory in accordance with CLIA regulations, [employer] [place] [employer] (CAP) guidelines (Aug 20, 2019), and FDA guidance (Aug 01, 2019). This test is only for use under the Food and Drug Administration's Emergency Use Authorization. Swab ENTIRE NASOPHARYNX / Unknown 11/13/2019 13:16 EDT 11/13/2019 19:27 EDT Provider Outr Resulting Lab MICROBIOLOGY - GENERAL ORDERABLES [facility] [employer] [facility], [place] * COVID-19 TESTING (11/13/2019 13:16 EDT) [facility] COVID-19 rt-PCR Result NEGATIVE Negative 11/14/2019 23:23 EDT [facility] Comment: 2019-novel Coronavirus (2019-nCoV) not detected by the qRT-PCR assay. Consider testing for other respiratory viruses or re-collecting for 2019-nCoV testing. Note: Optimum timing for peak viral levels during infections caused by 2019-nCoV have not been determined. Collection of multiple specimens from the same patient may be necessary to detect the virus. Limitations Positive results are indicative of active infection with SARS-CoV-2 but do not rule out bacterial infection or co-infection with other viruses. The agent detected may not be the definite cause of disease. In addition, detection of viral RNA may not indicate the presence of infectious virus or that SARS-CoV-2 is the causative agent for clinical symptoms. Negative results do not preclude SARS-CoV-2 infection and should not be used as the sole basis for patient management decisions. Negative results must be combined with clinical observations, patient history, and epidemiological information. False negative results may also occur if amplification inhibitors are present in the specimen or if inadequate numbers of organisms are present in the specimen. Optimum specimen types and timing for peak viral levels during infections caused by SARS-CoV-2 have not been fully determined. Collection of multiple specimens (types and time points) from the same patient may be necessary to detect the virus. The test was validated for use with upper respiratory specimens obtained via nasopharyngeal or oropharyngeal swabs in VTM, UTM, M4, M5, M6, saline, and MTM media. The performance of this test has not been established for other specimens. Specimens collected using other FDA recommended Specimen Collection Materials listed in the FDA COVID-19 [employer] communication (August 27, 2019) are processed with the caveat that they were not all validated for use with this test and the result must be interpreted in this context. Furthermore, a false negative results may occur if a specimen is improperly collected, transported or handled. If the virus mutates in the RT-PCR target region, SARS-CoV-2 may not be detected or may be detected less predictably. Inhibitors or other types of interference may produce a false negative result. An interference study evaluating the effect of common cold medications was not performed. This test is not FDA-cleared but its performance characteristics were established by our CLIA-certified, CAP-accredited, high complexity laboratory in accordance with CLIA regulations, [employer] [place] [employer] (CAP) guidelines (Aug 20, 2019), and FDA guidance (Aug 01, 2019). This test is only for use under the Food and Drug Administration's Emergency Use Authorization. Performing Lab [facility] 11/14/2019 23:23 EDT [facility] Swab ENTIRE NASOPHARYNX / Unknown 11/13/2019 13:16 EDT 11/13/2019 19:27 EDT Provider Outr Resulting Lab MICROBIOLOGY - GENERAL ORDERABLES [facility] [address] [place], [place] [id number] [place] [address] LABORATORY [place]Z, [place] documented in this encounter Visit Diagnoses Not on filedocumented in this encounter
--- OUTSIDE RECORDS SUMMARY | 2024-01-23 10:03 | XMS_ITS | Encounter Summary ---
Author Organization [facility] [place] [address] Care Team Providers Care Combo Welder Name Role Phone None Primary Care Provider Unavailabl e Encounter Details Date Type Department Care Team (Late st Contact Info) Description 10/13/2010 6:41 PM EDT [place]est[place] [id number] Amador Champion MD [facility] [address] [place] [address] Kayleigh Miranda MD [facility] [address] [place] [address] Anesthesia Record Procedure Summary Procedure Name Responsible Anesthesiologist Anesthesia Start Time Anesthesia Stop Time @ DELIVERY (WRVU 16.13) (Abdomen) Amador Champion MD 10/13/10184010/13/101946 Events Date Time Event Comment 10/13/2010 184 Start 1946 Stop Meds * Agents No agents on file. * Blood No blood administrations on file. Lines, Drains, and Airways Type Details Placement Removal (RETIRED) Peripheral IV Line - Single Lumen 10/04/10; 1350; 10/14/10; 183610/04/10 1350 by Cheryl Brooks RN 10/14/10 183 by Raya Barragan RN (RETIRED) Peripheral IV Line - Single Lumen 10/12/10; 1719; 10/14/10; 183610/12/10 1719 by Shani Contreras RN 10/14/10 183 by Raya Barragan RN Urethral Catheter 10/13/10; 1850; indwelling double lumen coude tip catheter; 100% silicone; 16; in place; drainage bag to dependent drainage; 10/14/10; 0540 10/13/10 1850 by Ling Ortiz RN 10/14/10 0540 by Liya Parrish RN documented in this encounter Social History Tobacco Use Types Packs/Day Years Used Date Smoking Tobacco: Never Alcohol Use Standard Drinks/Week Comments No 0 (1 standard drink = 0.6 oz pur e alcohol) Comments Yes Sex and Gender Information Value Date Recorded Sex Assigned at Not on file Gender Identity Not on file Sexual Orientation Not on file documented as of this encounter OR Notes * Anesthesia Postprocedure Evaluation - Darryl Quiñonez MD - 10/14/2010 11:08 AM EDT Patient: Steffanie Yuneau Procedure(s) Performed: ?? DELIVERY Patient location: Labor and Delivery Post-op pain: Adequate analgesia Post-op nausea: no nausea or vomiting Last Vitals: Filed Vitals: 10/14/10 0743 BP: 108/73 Pulse: 83 Temp: 36.6 ??C (97.9 ??F) Resp: 18 Post-op cardiovascular and respiratory status: is at baseline Level of consciousness: awake, alert and oriented Complications: no apparent complications and tolerated the procedure well No residual blockade Fluid Status: normal * Anesthesia Procedure Notes - Clark Kyle MD - 10/13/2010 6:40 PM EDT Associated Order(s): ANE BLOCK 2 Procedure Primary Type: Spinal Start time: 10/13/2010 6:46 PM End time: 10/13/2010 6:58 PM Patient Prep Position: Sitting Prep: chlorhexidine Injection technique: single-shot Skin Anesthetic Lidocaine 1% 4 ml Procedure Technique Level of needle insertion: L3-L4 Needle approach: midline Needle Type: [facility] Gauge: 27 Number of attempts: 1 Intrathecal Injection The patient received the following medication/s as an intrathecal injection: Bupivacaine 0.75% w dextrose Morphine 200 mcg Events/Notes Events: None Performed by Tawanna Champion MD and Hasmukh Kyle MD * Anesthesia Preprocedure Evaluation - Kayleigh Miranda MD - 10/04/2010 3:39 PM EDT Anesthesia Evaluation Airway Mallampati: II TM distance: >3 FB Neck ROM: full Dental Pulmonary - negative ROS Cardiovascular - negative ROS Neuro/Psych GI/Hepatic/Renal (+) GERD well controlled, Endo/Other Abdominal Anesthesia Plan 19yo g1 Otherwise healthy young woman with PPROM. She desires epidural when the time comes. She hasno contraindications at this time. Anesthetic plan and risks discussed with patient, spouse and mother. documented in this encounter Plan of Treatment Not on file documented as of this encounter Visit Diagnoses Not on filedocumented in this encounter Care Teams Combo Welder Relationship Specialty Start Date End Date None None PCP - General 10/04/10 documented as of this encounter
--- OUTSIDE RECORDS SUMMARY | 2024-01-23 10:03 | XMS_ITS | Encounter Summary ---
Author Organization [facility] [place] [address] Care Team Providers Care Gun Numberer Name Role Phone None Primary Care Provider Unavailabl e Reason for Visit * Reason Comments Rupture of Membranes PREMATURE RUPTURE O F MEMEBRANES Encounter Details Date Type Department Care Team (Late st Contact Info) Description 10/13/2010 6:30 PM EDT - 10/13/2010 7:44 PM EDT [place] [id number] Lorri Cadet MD [facility] OBSTETRICS & [place] [address] @ DELIVERY (WRU 16.13) Social History Tobacco Use Types Packs/Day Years [...] Sign Reading Time Taken Comments Blood Pressure 107/75 10/16/2010 7:36 AM EDT Pulse 86 10/16/2010 7:36 AM EDT Temperature 36.6 ??C (97.9 ??F) 10/16/2010 7:36 AM ED T Respiratory Rate 16 10/16/2010 7:36 AM EDT Oxygen Saturation 98% 10/15/2010 8:54 PM EDT Inhaled Oxygen Concentration - - Weight - - Height - - Body Mass Index - - documented in this encounter Discharge Instructions * Discharge Instructions* Nesha Borrego RN - 10/16/2010 2:58 PM EDT Nursing Inpatient Progress C - Section Follow-up Follow-ups: Immunizations Received: [ ] MMR [ x] Tdap [ ] Inactivated Influenza Vaccine [ ] Other: Medications Received: [ ] Rhogam Given: (time/date) [ ] Depoprovera Given: (time/date) [ ] Other: Referrals: Additional Instructions: Maternal Discharge Instructions Rest: Although it may seem impossible to get enough rest, simple planning will help. Try to get at least one four hour block of uninterrupted sleep in 24 hours; then plan to rest, and/or sleep when your baby does. Limiting visitors also helps. Fathers and other family members can help by doing housework, caring for other children and/or helping limit visitors. Activity: After delivery, it is safe to climb stairs at home. Do not lift anything heavierthan your baby for two weeks. Do not drive for two weeks or while taking pain medicine that contains a narcotic as your reaction time may be decreased. Nutrition: Your diet following the of your baby is as important as it was before the baby wasborn. Drink a minimum of 6-8 glasses a day. Do not attempt to lose weight during the first six weeks. Continue taking your vitamins until they are gone. Lochia: (Flow) Your flow should be no heavier than a normal period. It will be bright red for 2-3 days and then pinkish and finally colorless. If your flow becomes bright red again, decrease your activity. Do not use tampons until your care provider advises you it is OK. Incision: Wash the incision with soap and water and pat dry. It is normal to have clear or pinkish fluid seep from the incision. Gauze pads or sanitary napkins may help to keep the incision dry if itis located in a fold under your tummy. If the incision has more redness, yellow drainage, or becomes more painful, contact the obstetrics clinic. Breast Care for Formula feeding mothers: Wear a well fitting bra to support your breasts. Ice packsto your breasts and Tylenol or Ibuprofen may be used to relieve discomfort from engorgement. Avoid stimulating your breasts: Do not let warm water from the shower fall on them; avoid holding your baby near your breasts until your milk begins to decrease and engorgement is relieved. Breast feeding mothers: Practice careful positioning and frequent feeding as demonstrated in the hospital. The printed information in your packet covers this in detail. Call your doctor or turnstile collector for: Fever more than 100.5 Heavy bleeding that saturates a pad an hour Clots larger than a plum Increased abdominal pain, nausea, shaking chills Increased redness or soreness over your incision Breast with hot, hard, tender areas on the breast plus flu-like symptom depression occurs in a large percentage of women. We encourage you to contact your provider or a member of the nursing staff if you are feeling so overwhelmed that you are unable to care for yourself or your baby. Keep your follow up appointment. You may call the [facility] [place] at any time for guidance or for answers to questions that come up prior to you follow up appointment. Your [facility] Provider can be reached during office hours at Midwives [facility]stetric[facility] [place] Follow-up Clinic AFTER OFFICE HOURS for the mammal control agent or turnstile collector blood donor recruiter supervisor Provider electronic signature confirms that discharge instructions were reviewed with the patient. A copy was printed and given to the patient. * Attachments The following attachments cannot be sent through Care Everywhere. * SECTION: WHAT TO EXPECT AT HOME (ROMANSH) * : AFTER YOUR VISIT (ROMANSH) documented in this encounter Medications at Time of Discharge Medication Sig Dispensed Refills Start Date End Date docusate sodium (COLACE) 100 mg capsule Take 1 capsule by mouth 2 times daily for 30 days. 60 capsule 0 10/16/2010 11/15/2010 ibuprofen (ADVIL;MOTRIN) 600 mg tablet Take 1 tablet by mouth every 6 hours for 30 days. 120 tablet 0 10/16/2010 11/15/2010 OXYcodone-acetaminophen (PERCOCET) 5-325 mg per tablet Take 1-2 tablets by mouth every 4 hours as needed for Pain (moderate-severe pain). 30 tablet 0 10/16/2010 11/27/2010 documented as of this encounter Progress Notes * Antony Gordon RN - 10/16/2010 4:29 PM EDT Office of Care Management The following assessment is copy/pasted from infants 's medical record. The information contained is pertinent to this mother as well. Care Management Assessment Patient Information has been reviewed in multi-disciplinary rounds with pediatric providers, in medical record, and through patient interview. Introduced self and CRC role to patient and services accepted. Living Situation: lives with Juan AYERS Where:[address] [place] [address] Rd, [place] [address], living in an apt at her parents house, rent free [place]. Approx time in community: 2 weeks, just moved from [place] Social Resources:none, don't know anyone in the community, except her parents Extended family in area for support:both of their family is from here Cognitive Resources: Intact Childbirth Education: Yes Educational level:unknown Functional Status: Ambulatory, Independent, Without limitations Complications requiring follow-up: Financial Resources:both parents unemployed, no current income. Health Insurance Coverage:Chris is covered under her father's O[employer] Blue policy, but they baby will not be added to that policy. Her [place] Medicaid application has not been approved, although it has beensubmitted. Storage Engineer Chosen:unknown Baby's Name: Todd Gonzalez Anticipated Continuing Care Needs: Physical: Recovery from . Initiation of . Emotional: Adjustment to period Psychological: Hx of anxiety/depression. PROM X 9 days. At risk for PPD. Educational: Parenting Continuing Care Plan Development: DME ordered :Unable to obtain a breast pump from [employer] since they are not adding the baby to the insurance policy. They do not have the giles to rent a breast pump from [facility]. TC to [facility] office in [facility], , where mom is already connected to [facility], and they do not have pumps, but will call Talib OLIVARES who deals with medical necessity pumps. Mom is being discharged home today, but will board on BP tonight, and hope to stay at [employer] tomorrow, and use our and [employer] pumps until Todd can breast feed. Breast Pump: Other: Have infant car seat, but it is for infants > 5 lbs, and Todd weighs @ 4/4oz. Parents each have a front end loader driver's license and mom has a car. They have adequate family support. No direct referrals made at this time, but [facility] referral will be made when infant is discharged home.. * Hernando Yang MD - 10/16/2010 6:33 AM EDT Progress Note ID: Chris is a 19yo woman POD#3 s/p section for intolerance of labor in thesetting of induction for PPROM. S: Chris is feeling well. Her pain has been well controlled by percocet and ibuprofen. Tolerating a regular diet, and ambulating without difficulty. Voiding without difficulty. Passing flatus. Lochia is light. Pumping for her infant. Physical Exam: Temp: [36.4 ??C (97.5 ??F)-36.6 ??C (97.9 ??F)] Heart Rate: [79-80] Resp: [18-20] BP: (114-126)/(68-69) SpO2: [98 %] General: Well appearing woman, pumping Uterus: Firm, appropriately tender Wound: Dressing C/D/I Extremities: No edema Labs: Ref. Range 10/12/2010 19:56 10/14/2010 05:40 WBC Latest Range: 4.0-10.0 x10(3)/mcL 9.9 10.5 (H) Hemoglobin Latest Range: 11.2-15.7 gm/dL 13.0 11.7 Hematocrit Latest Range: 34.0-45.0 % 39.0 35.4 Platelets Latest Range: 145-370 x10(3)/mcL 201 169 ABORh Type No range found O Pos AB Screen Interp No range found Negative Assessment/Plan: Chris is a 19yo woman POD#3 s/p section for intolerance oflabor in the setting of induction for PPROM. Continue routine care Anticipate discharge today Ibuprofen and percocet prn Encourage pumping - in ICN Contraception: Desires IUD NATALI RUELAS Attending post - section note HERNANDO YANG I reviewed the above note and discussed the patient at rounds with the team. I agree with the documented findings and plan of care, except as noted below. My evaluation: S: No complaints, pain will controled. O: AVSS Uterus: firm aprpopriately tender Abdomen: not distended. Incision/Dressing: clean dry intact Impression: stable POD 3 from c/s secondary to NRFHR during IOL secondary to PPROM. Plan: as above. D/c home today. HERNANDO YANG 10/16/2010 * Lorri Cadet MD - 10/15/2010 7:09 AM EDT Progress Note ID: Chris is a 19yo woman POD#2 s/p section for intolerance of labor in thesetting of induction for PPROM. S: Chris is feeling well. Her pain has been well controlled by ibuprofen and oxycodone. Toleratinga regular diet, and ambulating And voiding without difficult. Lochia is light. Pumping for her infant. Physical Exam: Filed Vitals: 10/14/10 2200 BP: Pulse: 75 Temp: 36.7 ??C (98.1 ??F) Resp: 20 General: Well appearing woman. Uterus: Firm, appropriately tender Wound: Dressing C/D/I Extremities: No edema Labs: Ref. Range 10/12/2010 19:56 10/14/2010 05:40 WBC Latest Range: 4.0-10.0 x10(3)/mcL 9.9 10.5 (H) Hemoglobin Latest Range: 11.2-15.7 gm/dL 13.0 11.7 Hematocrit Latest Range: 34.0-45.0 % 39.0 35.4 Platelets Latest Range: 145-370 x10(3)/mcL 201 169 Eosinophils Abs Latest Range: 0.0-0.5 x10(3)/mcL 0.2 0.1 Basophils Abs Latest Range: 0.0-0.2 x10(3)/mcL 0.0 0.0 ABORh Type No range found O Pos AB Screen Interp No range found Negative Assessment/Plan: Chris is a 19yo woman POD#2 s/p section for intolerance oflabor in the setting of induction for PPROM. Continue routine care Ibuprofen and percocet prn Encourage pumping Desires Mirena PP in ICN I have seen the patient and reviewed Dr. Melvin' (resident) history and I agree with the details as written. The assessment and plan were formulated in discussion with me and I agree with them as documented. Pertinent History: PPD# 2 C/S after IOL for PPROM at 35 wks. Pain is well controlled. Tolerating a regular diet and ambulating well Pertinent Exam: Vitals reviewed Fundus firm Moderate lochia Assessment: day 2 doing well Plan: Routine care. Anticipate discharge PPD#3. LORRI CADET * Shelly Jiménez MD - 10/14/2010 7:57 AM EDT Progress Note ID: Chris is a 19yo woman POD#1 s/p section for intolerance of labor in thesetting of induction for PPROM. S: Chris is feeling well. Her pain has been well controlled by toradol and oxycodone. Tolerating aregular diet, and ambulating without difficult. Still needs to void after alcazar removal. Lochia is light. Pumping for her infant. Physical Exam: Temp: [36.4 ??C (97.5 ??F)-36.9 ??C (98.4 ??F)] Heart Rate: [64-90] Resp: [16-20] BP: (99-138)/(66-84) SpO2: [95 %-99 %] Intake/Output Summary (Last 24 hours) at 10/14/10 0802 Last data filed at 10/14/10 0700 Gross per 24 hour Intake 4817.92 ml Output 1100 ml Net 3717.92 ml General: Well appearing woman, pumping Uterus: Firm, appropriately tender Wound: Dressing C/D/I Extremities: No edema Labs: Ref. Range 10/12/2010 19:56 10/14/2010 05:40 WBC Latest Range: 4.0-10.0 x10(3)/mcL 9.9 10.5 (H) Hemoglobin Latest Range: 11.2-15.7 gm/dL 13.0 11.7 Hematocrit Latest Range: 34.0-45.0 % 39.0 35.4 Platelets Latest Range: 145-370 x10(3)/mcL 201 169 Eosinophils Abs Latest Range: 0.0-0.5 x10(3)/mcL 0.2 0.1 Basophils Abs Latest Range: 0.0-0.2 x10(3)/mcL 0.0 0.0 ABORh Type No range found O Pos AB Screen Interp No range found Negative Assessment/Plan: Chris is a 19yo woman POD#1 s/p section for intolerance oflabor in the setting of induction for PPROM. ?? Continue routine care ?? Ibuprofen and percocet prn ?? Encourage pumping ?? Unknown post- contraception plan ?? F/U on voiding Attending note I saw patient on rounds and agree with Dr. Melvin' note above. The patient reports feeling well. Herbleeding is diminishing.. She has adequate analgesia. She is able to ambulate. afebrile, normotensive Abdomen: soft, appropriately tender, fundus below umbilicus Wound/dressing: clean, dry, intact Ext: nontender, mod edema Impression: POD 1 after primary at 35 weeks for nonreasuring heart rate pattern during an induction of labor for PROM doing well. Plan: Continue routine postoperative care. Shelly Jiménez MD * Liya Parrish RN - 10/14/2010 3:[address] Bell into see Pt. Discussed transfer of to ICN. PT sat up to pump. * Lorri Cadet MD - 10/13/2010 8:05 PM EDT Late entry Pt is 35 weeks with prolonged PPROM and is being induced. She had several days of attempted IOL last week which was stopped when she didn't begin to labor. She started with a cervidil last evening which was pulled because of a deep variable. She was started on pitocin last night and this has been turned off several times for variable decelerations throughout the day, most recently at around 1730.Her cervix is still 1 and long and she is remote from delivery. At this point we spoke about continuing on in labor vs C/S for failed induction. They are concerned about the length of time that this has gone on and would not like to turn the pitocin back on. They would like a C/S. I agree with thisplan as the fetus is not tolerating contractions and she is still remote from delivery. Pt was consented earlier in the day about the risk and benefits of C/S. They stated that all of their questionswere answered. * Larissa Campos MD - 10/13/2010 6:15 PM EDT Labor Progress Note S: 19 y.o. at 35w0d being induced for PPROM. O: Filed Vitals: 10/13/10 1800 BP: 138/84 Pulse: 72 Temp: Resp: Cervix: 1cm, 60%, -2, forebag FHT: category 2 A/P: Not in labor. FHT is category 2 - recurrent deep variables that resolve when pitocin is turnedoff. This is her second attempt at induction of labor. Prior induction failed after 3 days and she was given a few days rest. She is now s/p cervadil that was removed after 4-5 hours for decels and pitocin which has been on and off all day for decels. She has not changed her cervix for the last 3 hours and we have been unable to continue to increase pitocin because each time we do the FHT becomesnon-reassuring with recurrent deep variables and occaisional lates. Therefore we discussed the option of delivery and this is her preference at this point. Pitocin will remain off and will proceed with delivery. She has not eaten in 7 hours. * Shani Contreras RN - 10/13/2010 6:10 PM EDT md campos to see pt, plan for c/s * Maikel Espinosa MD - 10/13/2010 3:30 PM EDT Labor Progress Note Subjective: The patient is tolerating linduction well. She is not yet in labor. Objective: Vital Signs: BP 123/71 Pulse 90 Temp(Src) 36.7 ??C (98.1 ??F) (Oral) Resp 16 SpO2 97% LMP02/10/2010 24 hr Temp review: Temp (24hrs), Av.7 ??C (98 ??F), Min:36.5 ??C (97.7 ??F), Max:37 ??C (98.6 ??F) Cervix Exam: the cervix is firm and midposition Dilation: Dilation: 1 Effacement: Effacement: 50 Station: Station: -2 FHR Evaluation: Fetus A: Baseline Rate: 130 bpm Accelerations: Present Decelerations: Variable decels with contractions. Some improvement with position change but ultimately return. Uterine Activity Mode: Bendena Contraction Frequency: 4 Contraction Duration: 40-50 Contraction Quality: Mild Resting Tone Palpated: Soft Assessment: 19 y/o at 35 weeks undergoing IOL for PPROM. This is second labor attempt. Cervdilovernight- removed due to deep variable to 50s. No won pit for past 6 hours. Pit is at 8 units. Having variable decels. No significant change in exam. Labor Assessment: Not in labor. Other Issues: GBS +, PCN allergic, needs vanco in active labor. Plan: Labor Plans: Intervention: reposition pt. and continue to evaluate contractions and HR. Pt isat high risk for delivery given that she is remote from delivery. MFM Attending Note: I have personally reviewed the patient's progress in labor and agree with the resident physician's assessment and plan as documented. Maikel Espinosa MD, MS 10/13/2010 * Shani Contreras RN - 10/13/2010 12:38 PM EDT Pt sitting up to eat * Shani Contreras RN - 10/13/2010 10:57 AM EDT [address] Melvin, r/t concern for late decels. ? Variable vs. Late decels. At this time Dr. Melvin wants to keep pitocin running at current dose. * Maikel Espinosa MD - 10/13/2010 10:52 AM EDT Labor Progress Note Subjective: Pt is not yet feeling any contractions. Objective: Vital Signs: BP 128/76 Pulse 79 Temp(Src) 36.5 ??C (97.7 ??F) (Oral) Resp 18 SpO2 97% LMP02/10/2010 24 hr Temp review: Temp (24hrs), Av.7 ??C (98.1 ??F), Min:36.5 ??C (97.7 ??F), Max:37 ??C (98.6??F) Cervix Exam: Dilation: Dilation: 0.5 Effacement: Effacement: 50 Station: Station: -2 FHR Evaluation: Fetus A: Baseline Rate: 140 bpm Accelerations: Present Decelerations: Variables, repetitive, as low as 100s with good return to baseline Moderate variability Uterine Activity Mode: Bendena Contraction Frequency: 3-8 Contraction Duration: 20-50 Contraction Quality: Mild Resting Tone Palpated: Soft Assessment: 19 y/o at 35 weeks. PPROM with failed IOL at 34 weeks. Received cervidil last night with removal after several hours fo rdeep variable to 50s. Started on pitocin. Now having smaller but persistent variables. Cat 2 tracing. Discussed with pt that if these variables continue given that she is remote from delivery she has a high chance fo requiring a section. Consent was rev iewed and signed with pt. Labor Assessment: Not yet in labor. Other Issues: as above Plan: Labor Plans: Will continue to monitor fetus. Hold on pitocin increase for time being until strip isimproved. If persistent repetative variables would recommend section given pt is remote from delivery. MFM Attending Note: I have personally reviewed the patient's progress in labor and agree with the resident physician's assessment and plan as documented. Maikel Espinosa MD, MS 10/13/2010 * Liya Parrish RN - 10/13/2010 6:54 AM EDT POC discussed with Dr. Ruelas. PT up to bathroom to shower. Efm and toco removed. Pt denies any contractions or cramping. * Liya Parrish RN - 10/13/2010 6:04 AM EDT Pt sleeping upon entering room. Left undisturbed. Call light within reach. Dr Trent updated on status. No new orders received. * Eda Trent MD - 10/13/2010 5:33 AM EDT Labor Progress Note Subjective: Patient with deceleration to 50's with cervidil in place. Objective: Vital Signs: BP 107/65 Pulse 72 Temp(Src) 36.7 ??C (98.1 ??F) (Oral) Resp 18 SpO2 97% LMP02/10/2010 24 hr Temp review: Temp (24hrs), Av.8 ??C (98.2 ??F), Min:36.6 ??C (97.9 ??F), Max:37 ??C (98.6??F) Cervix Exam: Dilation: Dilation: 0 Effacement: Effacement: 50 Station: Station: -2 FHR Evaluation: Fetus A: Baseline Rate: 125 bpm Accelerations: Present Decelerations: Variable (variable decel to 50 bpm x1 minute, resolved with removal of cervidil) Uterine Activity Mode: Palpation;Bendena Contraction Frequency: irr Contraction Duration: 40-60 Contraction Quality: Mild Resting Tone Palpated: Soft Assessment: 19 yo at 35 0/7 wga undergoing IOL for PPROM after failed IOL at 34 wga. Labor Assessment: Undergoing IOL for PPROM. nontolerance of cervidil, so removed. Plan: Labor Plans: Will allow fetus to recover Day team to determine next step in induction * Liya Parrish RN - 10/13/2010 2:56 AM EDT 0230-fht appear to be having variables or returning to baseline. Unable to determine. PT repositioned from left side to SF/rt tilt. 0237-fht decel to 50. Pt immediately to right side. EFM adjusted. fht 90's. Abd soft to palpation. No contraction felt. Oxygen applied by face mask and Dr. Trent called into room. IV fluid bolus started. 0239-Pt to left tilt Cervidil removed and sve done. Pt then to far left side. Fht to 120 at 0240. Pt educated on occurrence. Denies any contractions or cramping. * Liya Parrish RN - 10/13/2010 2:04 AM EDT Pt up to bathroom. Denies any complaints of. Back to bed and to right side. Unable to trace fht, maternal heart tones tracing. Palpated my radial pulse to match. To left side and efm adjusted. * Liya Parrish RN - 10/13/2010 1:41 AM EDT 0105-Pt moved from left side to right side. Efm and toco adjusted. Pt denies any contraction or cramping. Denies need to void. * Liya Parrish RN - 10/13/2010 12:50 AM EDT Pt moved self to left side. EFM adjusted. Pt sleeping upon entering room. * Eda Trent MD - 10/13/2010 12:35 AM EDT Labor Progress Note Subjective: Patient undergoing IOL for PPROM at 35 wga after failed IOL at 34 wga. Patient feeing well. No contractions or VB. Good movement. Objective: Vital Signs: BP 118/73 Pulse 66 Temp(Src) 37 ??C (98.6 ??F) (Oral) Resp 16 SpO2 97% LMP 02/10/2010 24 hr Temp review: Temp (24hrs), Av.8 ??C (98.3 ??F), Min:36.6 ??C (97.9 ??F), Max:37 ??C (98.6??F) Cervix Exam: Dilation: Dilation: 0 Effacement: Effacement: 50 Station: Station: -2 Vertex (confirmed by bedside ultrasound) FHR Evaluation: Fetus A: Baseline Rate: 130 bpm Accelerations: Present Decelerations: None Uterine Activity Mode: Bendena Contraction Frequency: none Contraction Duration: 60-90 Contraction Quality: Mild Resting Tone Palpated: Soft Assessment: 19 yo G1 at 35 0/7 wga underging IOL for PPROM. Labor Assessment: not in labor Plan: Labor Plans: Cervidil placed * Liya Parrish RN - 10/13/2010 12:10 AM EDT Pt sleeping. Call light within reach. * Liya Parrish RN - 10/12/2010 10:53 PM EDT 2237-Pt up to bathroom. Pt denies any contractions at this time. Requesting Ambien to help her sleep. Dr Ortiz notified of pt request. * Liya Parrish RN - 10/12/2010 9:59 PM EDT Pt up to bathroom. Denies feeling any contractions or cramping. No c/o. Call light within reach. Siderails up x2. * Liya Parrish RN - 10/12/2010 9:33 PM EDT [address] pt up to bathroom. Dr Trent into room. Cervidil discussed and educated pt. Pt verbalized understanding. POC and Hx discussed. * Neetu Mitchell MD - 10/12/2010 11:24 AM EDT 10/12/10 1123 Nonstress Test, Fetus A Baseline Rate 130 bpm Variability 6-25 BPM Accelerations Present Decelerations None Contraction Frequency none Nonstress Test Interpretation Reactive, >32 weeks: two 15 bpm accelerations lasting 15 seconds Overall Impression Reassuring for gestational age NST Times NST Start Time 0822 * Hernando Yang MD - 10/12/2010 6:51 AM EDT ANTEPARTUM PROGRESS NOTE Date Performed: 10/10/2010 Patient Name: Chris Vásquez Lisa Provider: NATALI Thorpe FOUZIA ID: Chris Gonzalez is a 19 y.o. year old woman at 34w6d GA admitted for PPROM. S/p attemptat IOL with cervidil x 2 , oral misoprostol and pitocin x3 days with no change in vaginal exam. Subjective: Patient feels well today, overall feeling well . + movement. continued leaking. no contractions no bleeding. No fevers or chills. Objective: Temp: [36.4 ??C (97.5 ??F)-36.6 ??C (97.9 ??F)] Heart Rate: [70-80] Resp: [18] BP: (128-135)/(77-84) SpO2: -- General: Well developed, well nourished gravid female Abdomen: Soft, not tender Uterus: Soft, not tender Lower Extremities: non-tender,trace pretibial edema Vaginal exam on 10/06: 0.5 dilation, 75 effacement, -2 station. Presentation vtx Significant labs: GBS+ Monitor Evaluation: Reactive yesterday, pending today Assessment: 34w6d week IUP admitted for PPROM Presentation: cephalic reassuring status Significant labs Rh + Rubella immune GBS + Steroid status: naive due to GA Other significant history none Consultations requested/performed: Neonatology, anesthesiology Recommendations/Treatment Plan: General plan: Admitted for PPROM surveillance. Plan for IOL tomorrow, at 35 weeks or if worsening clinical picture with ssx of chorioamnionitis today. surveillance: NST Daily Additional management of other significant medical issues: None NATALI RUELAS Attending Progress Note HERNANDO YANG I reviewed the above note and discussed the patient at rounds with the team. I agree with the documented findings and plan of care except as noted below. My evaluation is as below: Subjective: No compalitns, good FM, no contractions or bleeding. Continuing to leak. Objective: Vitals: AVSS Abdomen: Soft, non-tender, not distended Uterus: Soft, Non-tender Extremities: trace edema NST: pending for today, please see separate documentation. Impression & Plan 34w6d IUP with an SUE of 11/17/2010, by Last Menstrual Period, admitted with PPROM, had failed IOL. FLM is present. We will start cervical ripening at 6 pm this eveing with cervadil, plan for pitocin in am if appropriate. HERNANDO YANG 10/12/2010 * Lorri Cadet MD - 10/11/2010 4:01 PM EDT 10/11/10 1600 Nonstress Test, Fetus A Baseline Rate 125 bpm Variability 6-25 BPM Accelerations Present Decelerations Variable Contraction Frequency none Nonstress Test Interpretation Reactive, >32 weeks: two 15 bpm accelerations lasting 15 seconds NST Times NST Start Time 0720 I personally reviewed this NST * Shelly Jiménez MD - 10/11/2010 6:50 AM EDT ANTEPARTUM PROGRESS NOTE Date Performed: 10/10/2010 Patient Name: Chris Gonzalez Provider: NATALI RUELAS ID: Chris Gonzalez is a 19 y.o. year old woman at 34w5d GA admitted for PPROM. S/p attemptat IOL with cervidil x 2 , oral misoprostol and pitocin x3 days with no change in vaginal exam. Subjective: Patient feels well today, overall feeling well . + movement. continued leaking. no contractions no bleeding. Objective: Temp: [36.2 ??C (97.2 ??F)-36.9 ??C (98.4 ??F)] Heart Rate: [68-83] Resp: [18] BP: (127-137)/(73-82) SpO2: -- General: Well developed, well nourished gravid female Abdomen: Soft, not tender Uterus: Soft, not tender Lower Extremities: non-tender,trace pretibial edema Vaginal exam on 10/06: 0.5 dilation, 75 effacement, -2 station. Presentation vtx Significant labs: GBS+ Monitor Evaluation: Reactive yesterday, pending today Assessment: 34w5d week IUP admitted for PPROM Presentation: cephalic reassuring status Significant labs Rh + Rubella immune GBS + Steroid status: naive due to GA Other significant history none Consultations requested/performed: Neonatology, anesthesiology Recommendations/Treatment Plan: General plan: Admitted for PPROM surveillance. Taking a break from IOL for now. Will re-try at 35 weeks or if worsening clinical picture with ssx of chorioamnionitis. surveillance: NST Daily Additional management of other significant medical issues: None NATALI MONTGOMERYE MFM attending note I saw and evaluated the patient. I agree with the findings and the plan of care as documented in Dr. Ruelas's note. The patient reports feeling well. She denies contractions, leaking of fluid or bleeding. She reports good activity. My physical exam confirms and/or revises Dr. Ruelas's exam. afebrile, vital signs stable. Nonstress test: Documented elsewhere Abdomen: gravid, soft, nontender Ext: no edema Impression: PROM at 34 5/7 weeks' GBS colonized S/p failed IOL with multiple doses of antibiotics Plan: Repeat IOL at 35 weeks Careful surveillance for well being and evidence of infection Nonstress test Shelly Jiménez MD * Lorri Hassan PT - 10/10/2010 9:50 AM EDT Physical Therapy Pt has orders for up ad reyna; no further indication for PT involvement Lorri Hassan PT Pager [phone] * Shelly Jiménez MD - 10/10/2010 7:15 AM EDT ANTEPARTUM PROGRESS NOTE Date Performed: 10/10/2010 Patient Name: Chris Gonzalez Provider: NATALI RUELAS ID: Chris Gonzalez is a 19 y.o. year old woman at 34w4d GA admitted for PPROM. S/p attemptat IOL with cervidil x 2 , oral misoprostol and pitocin x3 days with no change in vaginal exam. Subjective: Patient has no complaints today, overall feeling well . + movement. continued leaking. no contractions no bleeding. Objective: Temp: [36.5 ??C (97.7 ??F)-37.1 ??C (98.8 ??F)] Heart Rate: [66-79] Resp: [18-20] BP: (129-141)/(70-86) SpO2: -- General: Well developed, well nourished gravid female Abdomen: Soft, not tender Uterus: Soft, not tender Lower Extremities: non-tender,trace pretibial edema Vaginal exam on 10/06: 0.5 dilation, 75 effacement, -2 station. Presentation vtx Significant labs: GBS+ Monitor Evaluation: Reactive yesterday, pending today Assessment: 34w4d week IUP admitted for PPROM Presentation: cephalic reassuring status Significant labs Rh + Rubella immune GBS + Steroid status: naive due to GA Other significant history none Consultations requested/performed: Neonatology, anesthesiology Recommendations/Treatment Plan: General plan: Admitted for PPROM surveillance. Taking a break from IOL for now. Will re-try at 35 weeks or if worsening clinical picture with ssx of chorioamnionitis. surveillance: NST Daily Additional management of other significant medical issues: None NATALI RUELAS MFM attending note I saw and evaluated the patient. I agree with the findings and the plan of care as documented in Dr. Ruelas's note. The patient reports feeling well. She denies contractions, leaking of fluid or bleeding. She reports good activity. My physical exam confirms and/or revises Dr. Ruelas's exam. afebrile, vital signs stable. Nonstress test: Documented elsewhere Abdomen: gravid, soft, nontender Ext: no edema Impression: 34 4/7 weeks with PROM and failed induction of labor without evidence for labor, infection, compromise or abruption. Plan: Continue close surveillance for any evidence of infection or nonreassuring well being IOL at 25 weeks Shelly Jiménez MD * Gardenia Lanza MD - 10/09/2010 5:09 PM EDT 10/09/10 1615 Nonstress Test, Fetus A Baseline Rate 130 bpm Variability 6-25 BPM Accelerations Present Decelerations None Contraction Frequency irreg Nonstress Test Interpretation Reactive, >32 weeks: two 15 bpm accelerations lasting 15 seconds Overall Impression Reassuring for gestational age Comments repeat NST as there was a ? of decel on earlier monitoring NST Times NST Start Time 1615 I personally reviewed and interpreted this NST. * Shelly Jiménez MD - 10/09/2010 7:38 AM EDT ANTEPARTUM PROGRESS NOTE Date Performed: 10/09/2010 Patient Name: Chris Gonzalez Provider: NATALI RUELAS ID: Chris Gonzalez is a 19 y.o. year old woman at 34w3d GA admitted for PPROM. S/p attemptat IOL with multiple cervadils and pitocin x3 days with no change in vaginal exam. Subjective: Patient has no complaints today, overall feeling well . + movement. continued leaking. no contractions no bleeding. Objective: Temp: [36.5 ??C (97.7 ??F)-36.8 ??C (98.2 ??F)] Heart Rate: [66-77] Resp: [16-18] BP: (126-131)/(78-89) SpO2: [96 %-99 %] General: Well developed, well nourished gravid female Abdomen: Soft, not tender Uterus: Soft, not tender Lower Extremities: non-tender,trace pretibial edema Vaginal exam on 10/06: 0.5 dilation, 75 effacement, -2 station. Presentation vtx Significant labs: GBS+ Monitor Evaluation: Reactive yesterday, pending today Assessment: 34w3d week IUP admitted for PPROM Presentation: cephalic reassuring status Significant labs Rh + Rubella immune GBS + Steroid status: naive due to GA Other significant history none Consultations requested/performed: Neonatology, anesthesiology Recommendations/Treatment Plan: General plan: Admitted for PPROM surveillance. Taking a break from IOL for now. Will re-try at 35 weeks or if worsening clinical picture with ssx of chorioamnionitis. surveillance: NST Daily Additional management of other significant medical issues: None NATALI RUELAS MFM attending note I saw and evaluated the patient. I agree with the findings and the plan of care as documented in Dr. Ruelas's note. The patient reports feeling well. She denies contractions, leaking of fluid or bleeding. She reports good activity. My physical exam confirms and/or revises Dr. Ruelas's exam. afebrile, vital signs stable. Nonstress test: Documented elsewhere Abdomen: gravid, soft, nontender Ext: no edema Impression: PROM at 34 3/7 weeks with failed induction of labor. without evidence for labor, infection, compromise or abruption. Plan: Will watch carefully for any evidence of infection and make another attempt at induction of labor at 35 weeks' Nonstress test CBC if any complaint of malaise, pain, malodorous fluid leak or uterine tenderness Shelly Jiménez MD` * Neetu Mitchell MD - 10/08/2010 8:58 PM EDT 10/08/102054 Heart Rate Baseline Rate 130 bpm Variability 6-25 BPM Accelerations Present Decelerations None * Hernando Yang MD - 10/08/2010 7:29 AM EDT ANTEPARTUM PROGRESS NOTE Date Performed: 10/08/2010 Patient Name: Chris Gonzalez Provider: LARISSA CAMPOS ID: Chris Gonzalez is a 19 y.o. year old woman at 34w2d GA admitted for PPROM. S/p attemptat IOL with multiple cervadils and pitocin x3 days with no change in vaginal exam. Subjective: Patient has no complaints today, overall feeling well . + movement. continued leaking. no contractions no bleeding. Objective: Filed Vitals: 10/07/102003 BP: 129/87 Pulse: 66 Temp: 36.4 ??C (97.5 ??F) Resp: 16 General: Well developed, well nourished gravid female Abdomen: Soft, not tender Uterus: Soft, not tender Lower Extremities: non-tender,trace pretibial edema Vaginal exam on 10/06: 0.5 dilation, 75 effacement, -2 station. Presentation vtx Significant labs: GBS+ Monitor Evaluation: Reactive yesterday, pending today Assessment: 34w2d week IUP admitted for PPROM Presentation: cephalic reassuring status Significant labs Rh + Rubella immune GBS + Steroid status: naive due to GA Other significant history none Consultations requested/performed: Neonatology, anesthesiology Recommendations/Treatment Plan: General plan: Admitted for PPROM surveillance. Taking a break from IOL for now. Will re-try at 35 weeks or if worsening clinical picture with ssx of chorioamnionitis. surveillance: NST Daily Additional management of other significant medical issues: None Attending Progress Note HERNANDO YANG I reviewed the above note and discussed the patient at rounds with the team. I agree with the documented findings and plan of care except as noted below. My evaluation is as below: Subjective:no c/o, sleeping well, no contractions. Objective: Vitals: AVSS Abdomen: Soft, non-tender, not distended Uterus: Soft, Non-tender Extremities: trace edema NST: penidng for today, please see separate documentation. Impression & Plan 34w2d IUP with an SUE of 11/17/2010, by Last Menstrual Period, admitted with PPROM, attempted IOL x3days with Pitocin x3, cervadil x2 and oral miso x2. She had no significant change in her cervix. Based on the failed IOL, we discussed this with the patient and will stop IOL and try again at 35 weeks. Will try IOL again if there are any decelerations in the FHRT. She is GBS positive and we will re-start IV antibiotics with resumed IOL. She has received 3 days of IV antibiotics thus far. HERNANDO YANG 10/07/2010 * Hernando Yang MD - 10/07/2010 1:27 PM EDT 10/07/10 1326 Nonstress Test, Fetus A Baseline Rate 130 bpm Variability 6-25 BPM Accelerations Present Decelerations None Contraction Frequency none Nonstress Test Interpretation Reactive, >32 weeks: two 15 bpm accelerations lasting 15 seconds Overall Impression Reassuring for gestational age NST Times NST Start Time 0800 I personally reviewed and interpreted this NST. * Hernando Yang MD - 10/07/2010 9:53 AM EDT 19 yo G1 presenting with PPROM and + FLM. Induction x 3 days with no progress. Offered choice to wait until 35 weeks for further iol. Filed Vitals: 10/07/10 0851 BP: 120/79 Pulse: 68 Temp: 36.5 ??C (97.7 ??F) Resp: 20 NST reactive. A/p: PPROM at 34 1/7 weeks with no progress with iOL. Plan to restart IOL at 35 weeks. D/C vanc. No latency abx. NST QD. Attending Progress Note HERNANDO YANG I reviewed the above note and discussed the patient at rounds with the team. I agree with the documented findings and plan of care except as noted below. My evaluation is as below: Subjective: Has not felt any significant contractions, is sleeping well at night. Continuing to leak, no bleeding. Objective: Vitals: AVSS Abdomen: Soft, non-tender, not distended Uterus: Soft, Non-tender Extremities: trace edema NST: reactive for today, please see separate documentation. Impression & Plan 34w1d IUP with an SUE of 11/17/2010, by Last Menstrual Period, admitted with PPROM, attempted IOL x3days with Pitocin x3, cervadil x2 and oral miso x2. She ahs had no significant change in her cervix. We talked about different management options. There are no signs of infection. If she waited until35 weeks for another attempt at IOL, then her child may be able to avoid an NICU stay. I also discussed c/s for delivery and continued IOL. The patient and her family desire expectant management at this point. We will not give latency antibiotics as they are not indicated. She is GBS ;positive and we will re-start IV antibiotics with resumed IOL. She has received 3 days of IV antibiotics thus far. HERNANDO YANG 10/07/2010 * Sarah Guzman RN - 10/06/2010 11:34 PM EDT Irritability noted after insertion of cervadil. * Sarah Guzman RN - 10/06/2010 11:28 PM EDT At this time, x2 decels noted. Patient repositioned following first decel, with rapid return to baseline from second decel. Patient currently on right side. Dr. Benjamin notified at this time. * Gardenia Lanza MD - 10/06/2010 9:18 PM EDT Labor Progress Note Subjective: The patient is feeling well. She is not having any contractions. She reports active movements. Objective: Vital Signs: BP 124/74 Pulse 72 Temp(Src) 36.4 ??C (97.5 ??F) (Oral) Resp 18 SpO2 98% LMP02/10/2010 24 hr Temp review: Temp (24hrs), Av.4 ??C (97.6 ??F), Min:36.3 ??C (97.3 ??F), Max:36.7 ??C (98.1 ??F) Cervix Exam: Dilation: Dilation: 0.5 Effacement: Effacement: 75 Station: Station: -2 FHR Evaluation: Fetus A: Baseline Rate: 135 bpm Accelerations: Present Decelerations: None Uterine Activity Mode: Bendena Contraction Frequency: None Contraction Duration: 60sec Contraction Quality: Mild Resting Tone Palpated: Soft Assessment: Labor Assessment: Not in labor. Other Issues: None Plan: Labor Plans: Discussed options for management, including giving further cervical ripening versus resting overnight. Patient would prefer Cervidil at this time. Cervidil #2 placed. NATALI Maurilio FOUZIA 10/06/2010 Addendum: Discussed with Dr Ruelas at the time of his evaluation. Continue cervical ripening/IOL efforts with Cervidil. Gardenia Lanza MD * Lucretia Hamilton, [facility] - 10/06/2010 4:14 PM EDT CARE MANAGEMENT/SOCIAL WORK: Referral/contact:Met with ANDRIA Valiente, and Chris's mother this afternoon to introduce socialwork role, offer support, and assess resource needs. Chris is being induced at 34 0/7 weeks for PPROM and concern for chorioamnionitis. S:We just got here from [place] on Saturday. I was going to get my care at [place], but my water broke, and so at my first appointment there, they sent me here. O:Chris and Juan are an intact unmarried couple who state that they are both from [place], [place]. They went to school together in [place], and dated in high school, then parted ways, and Rufusmoved out to [place] to get a new start in 2006. The couple reconnected, and Chris moved to [place] eight months ago to be with Juan. They made the decision to return to [place] because they felt that family proximity and support would be important to them as they become parents. Both state that they areglad to be home in [place]. At this time, they have moved into [facility] parents home in [place]. They state that they have not unpacked anything. As they have just arrived, Juan does not have a job, so at this time, they do not have income. Chris plans to apply for [place] Medicaid and other benefits when she is able, and the couple have already met with a [facility] senior financial consultant, who will assist them in applying for Medicaid. SW answered the couple's questions regarding the ICN and [facility]. They are thinking that theywill stay at [facility] after the baby is born. Chris reports that the baby's head is down, and she expressed some frustration that she has not made more progress with her labor since her induction was begun on Saturday night. A: Young couple who appear excited about becoming parents, and who understand that at the baby's gestational age, he should do well. While they do not have income at this time, Sheas mother indicates her family's willingness to assist them while they get resettled in [place]. [facility] after mom is discharged from [facility]. P: SW to follow for support to family and assistance in applying for resources. * Nataliia Kruger RN - 10/06/2010 2:40 PM EDT Pt off monitor to shower. Placed back on monitor at 1530 * Lorri Hassan, PT - 10/06/2010 1:37 PM EDT Physical therapy 19 year old , admit with Premature Rupture of Membranes at 33 6/7 wks gestation. Pt moved to [place] with her boyfriend from [place], arriving on Saturday by car. Ruptured membranes on Saturday and transported from [place]. Being induced today due to mature lung maturity. Chris is a 19 y.o. Single . Physical Therapy consult for bedrest exercises received 10/05/10; pt being induced today so will defer PT consultation * Nataliia Kruger RN - 10/06/2010 11:46 AM EDT 0945: Pitocin off as ordered 1020 am Misoprostil 50 mcg given buccally as ordered. Chris has contracted irregularly and mildly.She has no pain. It doubtful that she has made cervical change. Based on her pprom, Dr. Melvin and Olu agreed to give miso buccally to limit contamination. Chris remains cheerful and optimistic despite the prolonged induction process. * Vikki Carlin MD - 10/06/2010 4:57 AM EDT Labor Progress Note Subjective: She is comfortable without complaint Objective: Vital Signs: BP 110/58 Pulse 66 Temp 36.6 ??C (97.9 ??F) Resp 20 LMP 02/10/2010 24 hr Temp review: Temp (24hrs), Av.4 ??C (97.6 ??F), Min:36.3 ??C (97.3 ??F), Max:36.8 ??C (98.2 ??F) Cervix Exam: Dilation: Dilation: 0 Effacement: Effacement: 25 Station: Station: -2 FHR Evaluation: Fetus A: Baseline Rate: 120 bpm Accelerations: Present Decelerations: None Uterine Activity Mode: Bendena Contraction Frequency: none Contraction Duration: 40-60 Contraction Quality: Mild Resting Tone Palpated: Soft Assessment/plan: 19 year old G1 @ 34 weeks gestation with IOL for PPROM, s/p pitocin, cervadil removed IOL: No cervical change will restart pitocin and check with increasing discomfort. If pt has no response over hours, will consider further cervical ripening MWB: Comfortable FWB: Continuous monitoring GBS unknown--latency abx I have seen and examined the patient, providing harris components as outlined below. I have reviewed the resident???s above note; my evaluation of the patient is below: 19 yo G1 at 34 weeks PPROM IOL. Reports movements, denies bleeding and painful contractions. No F/C Blood pressure 131/77, pulse 84, temperature 36.4 ??C (97.5 ??F), resp. rate 20 Abdomen soft, NT, gravid TOCO none EFM reactive I/R 34 weeks PPROM IOL Will stop pitocin as of yet no progress Will give misoprostol SL Continue Vancomycin for GBBS prophylaxis * Neetu Mitchell MD - 10/06/2010 12:43 AM EDT Progress Note S: Sleeping comfortably O: Blood pressure 110/58, pulse 66, temperature 36.3 ??C (97.3 ??F), temperature source Oral, resp. rate 20 Cervix: Deferred NST: Baseline 130bpm Moderate variability. Accels to 160bpm. No decels. No contractions. Category I. A/P: Chris is a 19yo at 34 weeks admitted with PPROM and now with uterine tenderness and leukocytosis and concern for chorioamnionitis. S/p pitocin for induction without any change. Cervidil placed at 1600hrs. Reassuring status. Continuous monitoring Continue IV amp/gent Cervidil due to be removed at 0415hrs Monitor for worsening chorioamnionitis. Post timed note. I spoke with Dr. Ortiz at the time of her evaluation and I agreed with her evaluation, assessment and plan. Reassuring status. Continue to closely monitor. * Nataliia Kruger RN - 10/05/2010 6:34 PM EDT Chris is sitting up in bed. She is comfortable but frustrated that nothing is happening. She is not feeling any contractions or cramping. She has reviewed the Welcome to the icn video, circumsicion, and the breast feeding/self attachment videos on the web site. She was given the breast feeding packet and she read all the info. She has no questions. She has not complained of any uterine tenderness. * Lorri Cadet MD - 10/05/2010 4:08 PM EDT Labor Progress Note Subjective: Patient feeling comfortable, just took a nap. Objective: Temp: [36.4 ??C (97.5 ??F)-36.8 ??C (98.2 ??F)] Heart Rate: [65-99] Resp: [16-20] BP: (106-137)/(54-89) Cervix Exam: Dilation: Closed Effacement: Longed Station: High Anterior position Medium consistency Cervidil placed at time of exam FHR Evaluation: Baseline Rate: 140 bpm Accelerations: Present Decelerations: none CTX: none Assessment: 19 yo G1 at 33 6/7 wga admitted with PPROM and documented lung maturity undergoing IOL, was on pitocin without establishing strong uterine contractions, without uterine change. Labor Assessment: Labor not progressing Plan: Labor Plans: Cervidil placed at time of exam Continuous monitoring on cervidil Pain control per pt Continue to monitor for si/sx of chorio Pt seen and evaluated by me. I agree with the assessment and plan. * Nataliia Johnson RN - 10/05/2010 1:16 PM EDT Office of Care Management (OCM) / Clinical Electrician Helper (CRC)/ Initial Assessment Discussed patient with Provider Team and in multidisciplinary discharge-planning rounds. Reviewed record and interviewed patient. Introduced/reviewed CRC role and services accepted. REASON for HOSPITALIZATION: Premature Rupture of Membranes at 33 6/7 wks gestation. Pt moved to [place] with her boyfriend from [place], arriving on Saturday by car. Ruptured membranes on Saturday and transported from [place]. Being induced today due to mature lung maturity. Chris is a 19 y.o. Single . PMH/PSH: Healthy young woman; First . PREVIOUS FUNCTIONAL STATUS / SOCIAL / FAMILY SUPPORTS: Intact relationship with the FOB. Both are living at the home of her parents in [place]. Her father is working on building an apartmentat their home for pt and her BF and their . FOB looking for work. Pleasant, upbeat young woman in process of Pitocin induction. Accompanied by her mom who appears very supportive. CURRENT FUNCTIONAL STATUS: Awake, alert, excited about . ADVANCE DIRECTIVES: No INSURANCE COVERAGE / FINANCIAL ISSUES: Pt is under her father's insurance plan [facility] CURRENT HOME/COMMUNITY SERVICES/EQUIPMENT: DME: Will order Breast Pump once is delivered as he will be and in the ICN. Pt desires to breast feed. Does not have a pump. A relative has purchased and mailed her a Medela so it is en route. Home Health Agency: [facility] for mom/baby Other: Will need to apply for [place] Medicaid as secondary for self and for Dr Hughes for infant. Application provided to patient and request for PASS office to have a PFS worker come and assist pt with application prior to discharge. LEAD CARGO MOVER REFERRAL: LEAD CARGO MOVER available as needed. Notified LEAD CARGO MOVER - Support/Financial/Medication Assistance; See LEAD CARGO MOVER notes for further needs. PRIMARY CARE PHYSICIAN: None None POTENTIAL DISCHARGE NEEDS: VNA, Breast Pump, [facility] lodging, Assist with obt. Dr Hughes for (to be named Todd Mendoza Jr) Has car seat ordered and transportation home with parents. Pt also has own automobile. PATIENT/FAMILY EDUCATION NEEDS: ICN care, infant, Supports and Services in the [facility]. ANTICIPATED BARRIERS TO DISCHARGE: None TRANSPORTATION @ D/C: Parents and/or boyfriend PLAN: Will continue to monitor progress, follow for continuity of care and assist with discharge planning while hospitalized * Nataliia Kruger RN - 10/05/2010 12:45 PM EDT Pt noted to have increase in flushing after [address] Cadet notified and pt seenby her. Pcn d/c. Will start vancomycin per order. * Lorri Cadet MD - 10/05/2010 11:47 AM EDT Labor Progress Note Subjective: I was asked to see patient for flushing of chest and face, no itching or shortness of breath. Otherwise, The patient is tolerating labor well. Pain is minimal with contractions. Objective: Vital Signs: BP 125/77 Pulse 65 Temp(Src) 36.4 ??C (97.5 ??F) (Oral) Resp 20 LMP 02/10/2010 24 hr Temp review: Temp (24hrs), Av.6 ??C (97.8 ??F), Min:36.4 ??C (97.5 ??F), Max:36.8 ??C (98.2 ??F) Cervix Exam: Dilation: Dilation: 0.5 Effacement: Effacement: 50 Station: Station: -2 FHR Evaluation: Fetus A: Baseline Rate: 135 bpm Accelerations: Present Decelerations: Variable Uterine Activity Mode: Bendena Contraction Frequency: 2-5 Contraction Duration: 40-60 Contraction Quality: Mild Resting Tone Palpated: Soft GBS + without sensitivities done Assessment: Labor Assessment: Early latent labor. Other Issues: reaction to penicillin Plan: Labor Plans: Expectant management. D/C penicillin Start vancomycin * Liya Parrish RN - 10/05/2010 6:29 AM EDT 0527- Pt sleeping on back. fht decel noted. Pt moved to right side. efm adjusted. * Eda Trent MD - 10/05/2010 5:41 AM EDT Labor Progress Note Subjective: Patient feeling a few contractions at 20 mu/min pitocin she then experienced a prolonged variable decel to 80 bpm for 1 minutes. Objective: Vital Signs: BP 124/80 Pulse 69 Temp(Src) 36.6 ??C (97.9 ??F) (Oral) Resp 16 LMP 02/10/2010 24 hr Temp review: Temp (24hrs), Av.7 ??C (98 ??F), Min:36.5 ??C (97.7 ??F), Max:36.8 ??C (98.2??F) Cervix Exam: Dilation: Dilation: 0.5 Effacement: Effacement: 50 Station: Station: -2 FHR Evaluation: Fetus A: Baseline Rate: 110 bpm Accelerations: Present Decelerations: Prolonged (variable.) Uterine Activity Mode: Palpation;Bendena Contraction Frequency: 4-6 Contraction Duration: 40-60 Contraction Quality: Mild (ctx not tracing well. palpated.) Resting Tone Palpated: Soft Assessment: 19 yo G1 at 33 6/7 wga admitted with PPROM and documented lung maturity undergoing IOL. Labor Assessment: Labor not progressing with variable decels Plan: Labor Plans: Pitocin decreased to 10 mu/min. Will begin to increase back up as fetus and contraction pattern allows * Liya Parrish RN - 10/05/2010 5:01 AM EDT 0443- EFM decel for 120 seconds. Down to 80for 40 seconds. Pt was sleeping on far rt side when entering room. Moved to left side. IV fluid bolus began and O2 appied by face mask at 8L. fht to [address] Trent in room at this time. SVE done. Pitocin decreased to 10mu/min per Dr. Trent request. Abd palpated with mild ctx during decel. Discussed decel and POC with pt. Reassured. * Liya Parrish RN - 10/05/2010 4:16 AM EDT FHT variable noted to 85-90 for 90 seconds. Pt lying flat on back. Repositioned to Right tilt. Discussed. States she is starting to feel some cramping. Denies any pain. * Liya Parrish RN - 10/05/2010 3:[address] Sánchez updated on pt status and Pitocin at 20mu/min. No new orders received. * Liya Parrish RN - 10/05/2010 1:56 AM EDT 0142 Pt up to bathroom. Denies feeling any contractions. No c/o * Liya Parrish RN - 10/04/2010 10:27 PM EDT Pt educated on pitocin and induction process. Delivery and OR discussed. Pt verbalized understanding. PT very excited about process. Family at bedside. * Liya Parrish RN - 10/04/2010 9:[address] Sánchez into see pt. Lab results discussed and induction. Pt verbalized understanding. Pt out of bed into wheelchair and transferred to BP 12 for induction. efm and toco applied. * Vikki Carlin MD - 10/04/2010 9:42 PM EDT Antepartum Progress Note Patient Name: Chris Gonzalez : 86 Subjective: Chris is doing well, denies any contractions, fever or abdominal pain. Objective: Filed Vitals: 10/04/10 1930 BP: 130/67 Pulse: 87 Temp: Resp: FLM: 242 (mature) Assessment/Plan: 19 year old at 33 +5/7 weeks gestation HD#1 admitted for PPROM, s/p first dose of betamethasone. Sample of amniotic fluid sent for FLM, results return mature. Given risks of intrauterine infection with PPROM expectantly managed at 33 5/7 weeks and documented lung maturity, will proceed with IOL. 1. IOL: Will initiate pitocin for induction, reassess as needed 2. GBS unknown: Penicillin for GBS prophylaxis 3. MWB: Comfortable at present 4. FWB: Continuous EFM, will alert ICN of IOL Discussed with Dr. Carlin. I have seen and examined the patient, providing harris components as outlined below. I have reviewed the resident???s above note; my evaluation of the patient is below: * Liya Parrish RN - 10/04/2010 8:41 PM EDT BP noted. Retaken on left tilt. Pt sitting up in bed talking. * Vikki Carlin MD - 10/04/2010 5:37 PM EDT 10/04/10 1228 Nonstress Test, Fetus A Baseline Rate 145 bpm Variability 6-25 BPM Accelerations Present Decelerations Variable Nonstress Test Interpretation Reactive <32 week: two 10 bpm accelerations lasting 15 second, no decelerations Overall Impression Reassuring for gestational age NST Times NST Start Time 1200 I was the attending physician supervising the resident in the above care and interpretation of NST documented in this encounter H&P Notes * Vikki Carlin MD - 10/04/2010 1:39 PM EDT Obstetrical Admission Note Referring Hospital: n/a Referring Provider: Jackson Fountain MD Initial Care Provider (if early referral or co-managed by [facility]): [facility] wastewater project manager ([place]) Presenting Diagnosis/Chief Complaint: Chris Gonzalez was admitted today secondary to suspected PPROM. Chris Gonzalez is a 19 y.o. year old female with an SUE of 11/17/2010, by Last Menstrual Period who is at 33w5d weeks gestation. Her course was uncomplicated until this morning after her regular visit. She had her first appointment with Dr Fountain, and having left the office, she experienced a large gush of clear fluid. She then continued to leak. She went back to the office and exam revealed ferning positive and pH of 6.8. Due to suspected PPROM, she was then recommended to go to directly to [facility]. Record Review Lab Review ABO/RH O Pos, antibody neg Hct/Hgb 13.5/39 Platelets Rubella Immune Syphillis Neg Urine Culture Neg HepBsAg Neg HIV Neg 1 hr GTT 3 hr GTT GBS Unknown Most Recent Ultrasound Date: 07/18/10 Growth appropriate for gestational age Amniotic fluid volume normal Placenta anterior Presentation vertex General ROS Review of Systems Obstetric ROS Total Weight Gain this Not found. Movement: normal Contractions: none Leaking: Color: clear Bleeding: none now Preeclampsia signs and symptoms: None Active Problems No resolved problems to display. Active Hospital Problems Diagnoses ??? SUE 11/17/10 ??? premature rupture of membranes 10/04/10 Resolved Hospital Problems Diagnoses Date Resolved There are no active non-hospital problems to display for this patient. Past Medical History History reviewed. No pertinent past medical history. Past Surgical History History reviewed. No pertinent past surgical history. OB History OB History Grav Para Term Abortions TAB SAB Ect Mult Living 1 # Outc Date GA Lbr Femi/2nd Wgt Sex Del Anes PTL Lv 1 CUR Prior to Admission Medications No prescriptions prior to admission Allergies Allergies Allergen Reactions ??? No Known Allergies Family History Family History Problem Relation Age of Onset ??? Thyroid Disease Mother Hypothyroid ??? Pancreatic Cancer Maternal Grandfather ??? Alzheimer's Disease Paternal Grandfather Social History Social History Occupational History ??? Not on file. Social History Main Topics ??? Smoking status: Never Smoker ??? Smokeless tobacco: Not on file ??? Alcohol Use: No ??? Drug Use: No ??? Sexually Active: Not Currently Relevant Immunizations There is no immunization history on file for this patient. Last Set of Vitals: BP 139/86 Pulse 76 Temp(Src) 36.7 ??C (98.1 ??F) (Oral) Resp 18 LMP 02/10/2010 Physical Exam Constitutional: She is oriented to person, place, and time. She appears well- developed and well-nourished. No distress. Cardiovascular: Normal rate, regular rhythm and normal heart sounds. No murmur heard. Pulmonary/Chest: Breath sounds normal. No respiratory distress. Abdominal: Soft. Genitourinary: Uterus normal. Neurological: She is alert and oriented to person, place, and time. Skin: Skin is warm and dry. Psychiatric: She has a normal mood and affect. SVE deferred Heart Rate Interpretation: Heart Rate Mode: External US Baseline Rate: 145 bpm Variability: Moderate Accelerations: Present Decelerations: Variable Movement (Obstetric): active Multiple ?: no Uterine Size = Dates Presentations: Cephalic Cervix: Not visualized Sterile Speculum; no pooling of fluid seen, Nitrizine test is negative, wet prep results: no pathogens and no ferning Bedside USS: Eaton fetus, cephalic presentation Reduced fluid - ANA measured at 6.4cm (subjectively appears oligo) Anterior placenta EFW: 1920g (21%) Assessment 19 y.o. year old female with an SUE of 11/17/2010, by USS and Last Menstrual Period who is at 33w5d weeks gestation being admitted for suspected PPROM. Labor State: Not in labor. also complicated by late entry to care. ?? Heart Rate Assessment: Category 1 ?? GBS Unknown/Rh Pos /HIV Neg ?? Steroid status Naive ?? Additional medical and obstetrical issues: None Plan General Plan: Admit. Commence latency antibiotics, commence betamethasone. Plan to repeatspeculum exam to look for pooling and consider taking sample if pooling seen for FLM. surveillance: Daily NST once daily. Formal USS Delivery indications: progressive labor, non-reassuring status and maternal deterioration Consultations: neonatology , anesthesiology Additional issues: ?? Follow GBS culture (sent at [facility] today) NATALI RUELAS 10/04/2010 I have seen and examined the patient, providing harris components as outlined below. I have reviewed the resident???s above note; my evaluation of the patient is below: 19 yo at 33 5/7 weeks by a 20 week ultrasound with PPROM. Sent from Essie Garcia's office. Reports good movements, denies bleeding and painful contractions. has been uncomplicated but just relocated to [place] and had first visit here this morning. PMH: Denies PSH: Denies POB; G1 PGYN: denies STI's SH: no tobacco, ETOH or drugs FH: Denies FH of congenital or genetic syndromes. Blood pressure 134/84, pulse 85, temperature 36.5 ??C (97.7 ??F), temperature source Oral, resp. rate 16 NAD Abdomen soft, NT gravid SSE per Dr. Ruelas note repaeted fern, nitrazine and pool positive TOCO none EFM reactive US cephalic, oligohydramnios, AGA I/R: 33 5/7 weeks PPROM Latency Abx BMZ NICU consult Send vaginal pool if obtainable for FLM given dating by 20 week US IOL at 34 weeks otherwise NST QD No evidence of IAI documented in this encounter Procedure Notes * Lorri Cadet MD - 10/15/2010 7:35 AM EDTProcedure(s): SECTION, LOW TRANSVERSE BLANK Procedure Date: October 13, 2010 Procedure: Primary low transverse section by Pfannenstiel. Attending Physician: Lorri Cadet M.D. Residents: Abeba Melvin M.D. and Fani Campos M.D. Preoperative Diagnosis: 35-2/7 weeks intrauterine gestation with attempted induction of labor after PPROM failed induction of labor due to intolerance of labor. Postoperative Diagnosis: 35-2/7 weeks intrauterine gestation with attempted induction of labor after PPROM failed induction of labor due to intolerance of labor. Fluids: 3000 mL of LR. Estimated Blood Loss: 900 mL. Urine Output: 300 mL. Anesthesia: Spinal. Complications: None. Specimens: Placenta sent for pathologic exam. Indication: The patient is a 19-year-old G1, P0 admitted at 33 weeks gestational age for PPROM. She underwent attempted induction of labor at 34 weeks; despite multiple agents and many days of induction attempt, patient's cervix did not change. Induction was re-attempted at 35 weeks and minimal progress was made with repetitive variables on the heart rate tracing, decision was made for section. Risks, benefits, as well as alternatives to the procedure were discussed with the patient and she desired to proceed with the indicated procedure. Findings: Viable liveborn male infant in cephalic presentation, clear amniotic fluid. Weight of 1930 grams. APGARs of 9 and 9. Normal-appearing uterus, tubes, and ovaries bilaterally. Procedure: The patient was taken to the Operating Room where spinal anesthesia was obtained. She was placed in the dorsal supine position with a leftward tilt. A sterile prep and drape of the abdomen was undertaken and a time-out procedure was performed confirming the patient identity, indicated procedure, as well as team members. A Pfannenstiel skin incision was then made and carried through to the underlying layer of fascia with a scalpel. The fascia was incised in the midline and a fascial incision was extended laterally using Sterling scissors. The superior aspect of the fascial incision was grasped with Mariangel's, tented and the underlying rectus muscles dissected off. The inferior aspect of the vaginal incision was similarly grasped with Mariangel's, tented and the underlying rectus muscle dissected off. The rectus muscles were then bluntly in the midline. The peritoneum was entered bluntly and the peritoneal incision was extended vertically with good visualization of the bladder. The bladder blade was then placed. The vesicouterine peritoneum was grasped with smooth pickups, entered sharply with Metzenbaum scissors, extended and the bladder flap was created digitally. The bladder blade was then re-inserted. The hysterotomy was created, extended manually, and the was delivered atraumatically and handed off to waiting pediatricians after cord clamping and cutting. The uterus was exteriorized and cleared of all clot and debris and the hysterotomy was closed with 0 Vicryl in a running locked fashion. A second layer closure was performed also using 0 Vicryl. Excellent hemostasis was noted and the uterus was returned to the abdomen. The abdomen was copiously irrigated and cleared of all clot and debris. Survey of the surgical field revealed adequate hemostasis. The fascia was then closed with 0 Vicryl in a running fashion. The subcutaneous tissues were irrigated and the skin was closed with lillie. The wound was sterilely dressed. Sponge, lap, and needle counts were correct times two. The patient tolerated the procedure well and was taken to Recovery in stable condition. Dr. Cadet was the attending for this procedure and she was present throughout without any conflicting clinical or other responsibilities. documented in this encounter Miscellaneous Notes * Miscellaneous - Provider, Scanning - 10/19/2010 9:46 AM EDT * Miscellaneous - Provider, Scanning - 10/19/2010 9:42 AM EDT * Discharge Summary - Natali Ruelas - 10/16/2010 8:08 AM EDT Obstetrics - Discharge Summary Inpatient Obstetrics - Discharge Summary Patient Name: Chris Gonzalez Patient Age: 19 y.o. Birthdate: 1990 Admit date: 10/04/2010 Discharge date and time: No discharge date for patient encounter. Attending Physician: Vikki Carlin MD Discharge Diagnoses: ?? Induction of labor for PPROM ?? Low transverse section at 35 weeks for non-reassuring heart testing remote from delivery. Hospital Problems: Active Hospital Problems Diagnoses ??? SUE 11/17/10 ??? premature rupture of membranes 10/04/10 Resolved Hospital Problems Diagnoses Date Resolved Secondary Diagnoses : Chronic Problems: There are no active non-hospital problems to display for this patient. Care Provider: Dr Fountain Admission History (per admit note cut and paste) Chris Gonzalez is a 19 y.o. year old female with an SUE of 11/17/2010, by Last Menstrual Period who is at 33w5d weeks gestation. Her course was uncomplicated until this morning after her regular visit. She had her first appointment with Dr Fountain, and having left the office, she experienced a large gush of clear fluid. She then continued to leak. She went back to the office and exam revealed ferning positive and pH of 6.8. Due to suspected PPROM, she was then recommended to go to directly to [facility]. Hospital Course: Vaginal amniotic fluid pool was assessed at the time of admission lung maturity and found to be mature. Decision was therefore made for induction of labor. Cervical exam showed unfavorable cervix. She received piitocin, which did not produce any cervical change. She then was given Cervidil for cervical ripening. Again, no cervical change was noted. She then received oral misoprostol x2 doses, followed by further cervidil. At this time, induction was stopped. No evidence of any intra-amniotic infection was noted. Following discussion with the patient, the decision was made to continue close in-patient surveillance until 35 weeks gestation and at that time to restart the IOL. IOL was restarted with Cervidil at 35 weeks. A deep deceleration was noted after several hours, andthe cervidil was removed. Pitocin was commenced after reassuring monitoring. However, with pitocin,further repetitive decels were noted. Delivery Summary: With minimal cervical change noted, with repetitive variables in the heart rate tracing, decision was made for section. Risks, benefits, as well as alternatives to the procedure were discussed with the patient and she desired to proceed with the indicated procedure. Findings: Viable liveborn male infant in cephalic presentation, clear amniotic fluid. Weight of 1930 grams. APGARs of 9 and 9. Normal-appearing uterus, tubes, and ovaries bilaterally. Important Studies and Lab Data: Labs: Ref. Range 10/12/2010 19:56 10/14/2010 05:40 WBC Latest Range: 4.0-10.0 x10(3)/mcL 9.9 10.5 (H) Hemoglobin Latest Range: 11.2-15.7 gm/dL 13.0 11.7 Hematocrit Latest Range: 34.0-45.0 % 39.0 35.4 Platelets Latest Range: 145-370 x10(3)/mcL 201 169 ABORh Type No range found O Pos AB Screen Interp No range found Negative Studies: None Pending Studies and Lab Data: The patient will need the following test completed on: 10/04/2010 1. SPECIMEN TO PATHOLOGY (SURGICAL OR DERM) Authorizing Provider: Lorri Cadet MD Updated Allergies/ADRs: Allergies Allergen Reactions ??? Penicillins Other (See Comments) Pt's skin became red/flushed with administration of Penicillin Discharge Medications: Current Discharge Medication List New Meds Details docusate sodium (COLACE) 100 mg Take 100 mg by mouth 2 times daily. Qty: 60 capsule Refills: 0 ibuprofen (ADVIL;MOTRIN) 600 mg Take 600 mg by mouth every 6 hours. Qty: 120 tablet Refills: 0 OXYcodone-acetaminophen (PERCOCET) 1-2 tablets Take 1-2 tablets by mouth every 4 hours as needed for Pain (moderate-severe pain). Qty: 30 tablet Refills: 0 Dating Summary: 11/17/2010, by Last Menstrual Period Obstetric History: Obstetric History T0 TAB0 SAB0 E0 M0 L0 Name of Baby 1 Not recorded ??? Outcome Date Not recorded GA Not recorded ??? Delivery Type Not recorded ??? at 1 min. Not recorded at 5 min. Not recorded ??? Living Not recorded Past Medical and Surgical History: History reviewed. No pertinent past medical history. History reviewed. No pertinent past surgical history. Family History: Family History Problem Relation Age of Onset ??? Thyroid Disease Mother Hypothyroid ??? Pancreatic Cancer Maternal Grandfather ??? Alzheimer's Disease Paternal Grandfather Social History and Habits: History Social History ??? Marital Status: Single Spouse Name: N/A Number of Children: N/A ??? Years of Education: N/A Occupational History ??? Not on file. Social History Main Topics ??? Smoking status: Never Smoker ??? Smokeless tobacco: Not on file ??? Alcohol Use: No ??? Drug Use: No ??? Sexually Active: Not Currently Other Topics Concern ??? Not on file Social History Narrative ??? No narrative on file Operations/Major Procedures: Operations: ?? DELIVERY Other Major Procedures: None Discharge Conditions/Prognosis: Good Discharge to: Home Contraceptive Plans: IUD at post- visit. Follow-up Recommendations for Providers: Rover removed prior to discharge 6 week post- follow up. Instructions Given to Patient at Discharge: Provider Instructions None General Instructions None Future Appointments and Orders Future Orders Please Complete By Expires FOLLOW UP [[id number] Custom] Process Instructions: Scheduling Instructions: Comments: Remove lillie prior to discharge - visit 6 weeks after delivery with referring provider. Questions: Responses: Referrals: None Cc: Dr. Jackson Fountain MD, [place], [place] Provider Contact Information: None None Discharge References/Attachments: Discharge References/Attachments None Signed: NATALI RUELAS 10/16/2010 * OR Attestation - Lorri Cadet MD - 10/13/2010 9:46 PM EDT I was scrubbed and present for the entire procedure with Dr. Melvin. * Plan of Care - Zakiya Soto RN - 10/11/2010 8:46 AM EDT Problem: PROM, PPROM, Prolonged Rupture of Membranes (Obstetric) Goal: Prevent/Manage Potential Problems Based on my scope of practice, I assessed for signs and symptoms of potential problems that could be present as documented. Outcome: Outcome achieved Date Met: 10/11/10 Reactive NST, pt denies any abd tenderness or abd pain, continues to leak clear fluid, remains afebrile, denies any contractions. Will continue to assess * Med Student Progress Note - Carmen Rabago - 10/10/2010 6:43 AM EDT Obstetrical Antepartum Progress Note Chris Gonzalez is a 19 y.o. female at 34w4d gestation with PPROM on 10/04 at 0915. Pt failedprevious IOL, next IOL scheduled at 35 weeks. GBS+, mature FLM. Active Problems: Active Hospital Problems Diagnoses ??? SUE 11/17/10 ??? premature rupture of membranes 10/04/10 Current Medications: Current facility-administered medications ordered in [facility] Medication Dose Route Frequency Last Dose ? ? vitamin 27 & [id number] tablet 1 tablet Oral Daily Last Dose: 1 tablet at 10/09/101950 ??? calcium carbonatechewable tablet 1,000 mg 2 tablet Oral Q30 Min PRN ??? docusate sodium capsule 100 mg 100 mg Oral BID PRN Subjective: No active issues. Pt slept well, baby moving well. Partner at bedside. No pain, no discharge. No SOB, no CP, no n/v, no MCCLAIN General ROS Review of Systems Constitutional: Negative. Respiratory: Negative. Cardiovascular: Negative. Gastrointestinal: Negative. Genitourinary: Negative. Obstetric ROS: Movement:normal Contractions: none Leaking: None. Bleeding: none now Preeclampsia signs and symptoms: none Physical Exam: Last Set of Vitals: BP 129/70 Pulse 66 Temp(Src) 36.6 ??C (97.9 ??F) (Oral) Resp 18 SpO2 97% LMP 02/10/2010 Physical Exam HENT: Head: Normocephalic and atraumatic. Mouth/Throat: Oropharynx is clear and moist. Eyes: EOM are normal. Pupils are equal, round, and reactive to light. Cardiovascular: Normal heart sounds. Exam reveals no gallop and no friction rub. No murmur heard. Pulmonary/Chest: Breath sounds normal. She has no wheezes. She has no rales. Abdominal: Soft. Uterus: nontender. Fetus vertex Heart Rate Interpretation: Heart Rate Mode: External US Baseline Rate: 130 bpm Variability: Moderate Accelerations: Present Decelerations: None Duration of Decelerations (mm:ss) (Obstetric): 50sec Movement (Obstetric): active Pattern Observations: (dr baptiste reviewed strip) Multiple ?: no Uterus: non-tender Most Recent NST: Nonstress Test, Fetus A NST Start Time: 1615 Baseline Rate: 130 bpm Variability: Moderate Accelerations: Present Decelerations: None Contraction Frequency: irreg Nonstress Test Interpretation: Reactive, >32 weeks: two 15 bpm accelerations lasting 15 seconds Overall Impression: Reassuring for gestational age Assessment: 19 y.o. female at 34w4d gestation hospitalized for PPROM on 10/04, scheduled for IOL at 35 weeks. GBS+, mature FLM. ?? Presentation: Vertex ?? Status: reassuring ?? Steroid status: [email or web address] Plan: General Plan: IOL at 35 weeks surveillance: NST once daily Delivery indications: IOL at 35 weeks Consultations: none Additional issues: ?? none Signed: CARMEN RABAGO 10/10/2010 * Miscellaneous - Provider, Scanning - 10/08/2010 9:23 AM EDT * Med Student H&P - Addie Mullins - 10/04/2010 1:26 PM EDT Obstetrical Admission Note Referring Hospital: none Referring Provider: Dr. Fountain Presenting Diagnosis/Chief Complaint: Chris Thalia Lisa was admitted today secondary to premature rupture of membranes Chris Gonzalez is a 19 y.o. year old female with an SUE of 11/17/2010 who is at 33w5d weeksgestation by 22 week ultrasound and by LMP (irregular periods). At around 5 AM today she reported anon-traumatic rupture of membranes, there were no contractions, vaginal bleeding, decreased movement, or abdominal pain. She has not been ill. She subsequently presented to her local [facility] in [place], [place] who reported ruptured of membranes by positive nitrazine and ferning before subsequenttransfer to [facility]. Her course was complicated by late care (no early US to date her gestational age). Record Review Lab Review Most Recent Ultrasound Date: 07/18/10 Growth 493 grams (30percentile) for gestational age of 22 weeks + 4 Amniotic fluid volume: unknown Placenta: unknown Presentation: unknown General ROS Review of Systems Gen: denies fever, chills, malaise, +recent cold (couple of days ago) Neuro: denies HAs, blurry vision, numbness, tingling CV: denies CP Pul: denies SOB, cough, wheezing GI: denies constipation, diarrhea, abdominal pain : denies dysuria Skin: denies rash, new lumps Obstetric ROS Total Weight Gain this : unknown Movement: good movement, no decreased movement Contractions: no contractions throughout Leaking: +rupture of membranes with leakage of clear fluid Bleeding: denies Preeclampsia signs and symptoms: no HTN, negative proteinuria Active Problems PPROM Past Medical History No significant pmhx Past Surgical History none [facility] History Irregular periods since 13 Pap smears (07/13/09): Normal Prior to Admission Medications Prenatals Allergies Allergies Allergen Reactions ??? No Known Allergies Family History PGF - Alzheimer's dementia MGF - pancreatic Ca Mom - hypothroid Social History Moved recently from [place] to [place] to where father now lives, worked in [employer]. Father of child- Juan. Denies smoking, drinking, and illicit drug use. Relevant Immunizations Rubella, Varicella, DTaP ABO/Rh O+ Hct/Hgb 13.5/39.6 Platelets 207 Rubella immune Syphillis Negative Urine culture/UA Negative Hep BsAg Negative HIV Negative 1 Hr GTT 82 3 Hr GTT none GBS pending Last Set of Vitals: BP 139/86 Pulse 76 Temp(Src) 36.7 ??C (98.1 ??F) (Oral) Resp 18 LMP 02/10/2010 Physical Exam Gen: NAD, healthy appearing women CV: RRR no m/r/g Pul: CTAB GI: soft, NT, +BS Extr: no edema : uterus size is appropriate for GA SSPE: closed cervix, high, no pooling of fluid, Nitrazine weakly positive, ferning negative Imaging/Labs: Heart Rate Interpretation: Heart Rate Mode: External US Baseline Rate: 145 bpm Variability: Moderate Accelerations: Present Decelerations: Variable Movement (Obstetric): active Multiple ?: no Transabdominal US (bedside): ANA of approximately 5, cephalic presentation. Anterior placenta. Assessment ?? 19 y.o. year old female at 33 + 5/7 weeks with an SUE of 11/17/2010, by Last Menstrual Period being admitted for PPROM. has been uncomplicated. Currently, not in labor. Discussed with patient the benefit of IOL at 34 weeks vs. risk of chorioamnionitis for prolonged PPROM. GBS pending, Betamethasone negative. Plan General Plan: Admit to LnD Betamethasone x2 days to promote lung maturity, latency antibiotics of ampicillin, erythromycin Repeat SSPE for ascertainment of amniotic fluid and PPROM Plan for IOL at 35 weeks surveillance: NST today, formal surveillance OB US today Delivery indications: worsening maternal/ distress, signs of chorioamnionitis ADDIE MULLINS 10/04/2010 documented in this encounter Plan of Treatment Not on file documented as of this encounter Procedures Procedure Name Priority Date/Time Associated Diagnosis Comments DIFFERENTIAL, AUTOMATED Routine 10/14/2010 5:40 AM EDT CBC (WITH DIFF) Routine 10/14/2010 5:40 AM EDT SURGICAL PATHOLOGY REPORT Routine 10/13/2010 9:24 PM EDT SURGICAL PATHOLOGY REPORT Routine 10/13/2010 9:24 PM EDT @ DELIVERY (WRVU 16.13) 10/13/2010 6:45 PM EDT low transverse section DIFFERENTIAL, AUTOMATED STAT 10/12/2010 7:56 PM EDT ABO/RH TYPING STAT 10/12/2010 7:56 PM EDT CBC (WITH DIFF) STAT 10/12/2010 7:56 PM EDT ANTIBODY SCREEN STAT 10/12/2010 7:56 PM EDT TYPE AND SCREEN ([facility]/JAY) STAT 10/12/2010 7:56 PM EDT LECITHIN-SPHINGOMYEL IN RATIO (L/S) Routine 10/04/2010 5:00 PM EDT LAMELLAR BODY COUNT Routine 10/04/2010 5 :00 PM EDT US OB SCREENING MORPHOLOGY Routine 10/04/2010 2:40 PM EDT DIFFERENTIAL, AUTOMATED Routine 10/04/2010 1:50 PM EDT ABO/RH TYPING Routine 10/04/2010 1:50 PM EDT CBC (WITH DIFF) Routine 10/04/2010 1:50 PM EDT ANTIBODY SCREEN Routine 10/04/2010 1:50 PM EDT TYPE AND SCREEN ([facility]P/JAY) Routine 10/04/2010 1:50 PM EDT GROUP B STREP CULTURE SCREEN Routine 10/04/2010 9:00 AM EDT documented in this encounter Results * (ABNORMAL) REFLEX LAB-A-DIFF (10/14/2010 5:40 AM EDT) Neutrophil % 70.6 34.0 - 71.0 % CERNER MILLENNIUM Neutrophil Absolute 7.39(H) 1.50 - 6.30 x10(3)/mc L CERNER MILLENNIUM Lymph % 19.2 19.0 - 53.0 % CERNER MILLENNIUM Lymphocytes Abs 2.0 1.0 - 3.6 x10(3)/mc L CERNER MILLENNIUM Monocyte % 8.8 4.0 - 13.0 % CERNER MILLENNIUM Monocyte Abs 0.9 0.2 - 1.0 x10(3)/mc L CERNER MILLENNIUM Eos % 1.0 0.0 - 7.0 % CERNER MILLENNIUM Eosinophils Abs 0.1 0.0 - 0.5 x10(3)/mc L CERNER MILLENNIUM Basophil % 0.2 0.0 - 2.0 % CERNER MILLENNIUM Baso Absolute 0.0 0.0 - 0.2 x10(3)/mc L CERNER MILLENNIUM Immature Gran % 0.20 0.00 - 0.66 % CERNER MILLENNIUM Comment: Immature granulocytes(IG's)percentage and absolute count will include metamyelocytes, myelocytes, and promyelocytes. Blood smears from CBCs yielding IG's will be scanned manually for concordance. If this scan disagrees with the automated IG or if promyelocytes are noted, a manual differential will be performed. Immature Gran Absolute 0.02 0.00 - 0.05 x10(3)/mc L CERNER MILLENNIUM Blood specimen (specimen) 10/14/2010 5:40 AM EDT 10/14/2010 5:58 AM EDT Lorri Cadet MD HEMATOLOGY [facility]ABLE S [facility] * (ABNORMAL) CBC (with Diff) (10/14/2010 5:40 AM EDT) White Blood Cell 10.5(H) 4.0 - 10.0 x10(3)/mc L CERNER MILLENNIUM Red Blood Cell 3.91(L) 3.93 - 5.22 x10(6)/mc L CERNER MILLENNIUM Hemoglobin 11.7 11.2 - 15.7 gm/dL CERNER MILLENNIUM Hematocrit 35.4 34.0 - 45.0 % CERNER MILLENNIUM Mean Cell Volume 90.5 79.0 - 94.0 fL CERNER MILLENNIUM Mean Cell Hemoglobin 29.9 26.6 - 32.2 pg CERNER MILLENNIUM Mean Cell Hemoglobin Concentration 33.1 32.0 - 36.5 gm/dL [facility] Platelet 169 145 - 370 x10(3)/mc L [facility] RDW Standard Deviation 44.0 35.0 - 46.0 fL [facility] RDW coefficient of variation 13.3 10.9 - 14.4 % DALE JESUS[facility] Mean Platelet Volume 10.4 9.0 - 12.0 fL [facility] Blood specimen (specimen) 10/14/2010 5:40 AM EDT 10/14/2010 5:58 AM EDT Lorri Cadet MD HEMATOLOGY ORDERABLE S [facility] * Surgical Pathology Report (10/13/2010 9:24 PM EDT) Surgical Pathology Report [id number] ? Location: BP; BP12; A The signing pathologist has (i) examined the relevant preparation(s) for the specimen(s) and (ii) rendered or confirmed the diagnosis(es). . ?Pathology Surgical Pathology Final Report Clinical Information Specimen Submitted: A - Placenta Clinical History/Diagnosis: PPROM with delivery at 35 weeks after 7+ days ruptured Gross Description Labeled/Fixative: ? Placenta, fresh. Qty/Size/Weight: ?15.5 x 12.0 x 2.5 cm, 252 g. Tissue Description: ?? Eaton discoid placenta. ?? Membranes: ? Timmons-pink, semitransparent. ??100% marginal insertion. ?? Cord: ?45.0 x 1.0 cm; decreased coiling; three vessels; ?central insertion. ?? Surface: ? Blue-parker with clear membranes. ?? Maternal Surface: ??Smooth and intact. ?? Parenchyma: ?The specimen is serially sectioned at 0.5-cm to ?1.0-cm intervals. ??Sections show red-brown, spongy, ?homogeneous parenchyma. Sections/Processing : ??Sections are submitted as follows: ??(1) membrane ?roll; (2) proximal and distal cord; (3) surface ?with parenchyma; (4) maternal surface with ?parenchyma. ??(R4) ??aje/LCS Microscopic Description Slides reviewed, microscopic description not recorded. Diagnosis Third trimester placenta, cord and membranes: Negative for chorioamnionitis or funisitis. Positive for chronic deciduitis. CR-0 10/18/10 KO 10/18/10 Verified by: ? Ying Stevens MD ?Pathologist ?(Electronic Signature) The attending pathologist whose signature appears on this report has reviewed all diagnostic slides and has edited the gross and/or microscopic portion of the report in rendering the final pathologic diagnosis. [facility] 10/13/2010 9:24 PM EDT Lorri Cadet MD PATHOLOGY/CYTOLOGY O RDERASAJI [facility] * SURGICAL PATHOLOGY REPORT (10/13/2010 9:24 PM EDT) Surgical Pathology Report ? [facility] ? Provider: ?? LORRI CADET ? Pt. Name: ?? CHRIS GONZALEZ ? Acc #: ?[id number] ?Pt. ? Col Date: ?? 10/13/2010 ? /Sex: ?1990,(19 years),Female ? Rec Date: ?? 10/16/2010 ? LOC: ?BP ? SURGICAL PATHOLOGY ? ---Pathologic Diagnosis--- ? Third trimester placenta, cord and membranes: ? Negative for chorioamnionitis or funisitis. ? Positive for chronic deciduitis. ? CR-0 ? 10/18/10 ? KO ? 10/18/10 Verified by: ? Ying Stevens MD ? Pathologist ? (Electronic Signature) ? The attending pathologist whose signature appears on this report has ? reviewed all diagnostic slides and has edited the gross and/or ? microscopic portion of the report in rendering the final pathologic ? diagnosis. ? ---Microscopic Description--- ? Slides reviewed, microscopic description not recorded. ? ---Gross Description--- ? Labeled/Fixative: ? Placenta, fresh. ? Qty/Size/Weight: ?15.5 x 12.0 x 2.5 cm, 252 g. ? Tissue Description: ?? Eaton discoid placenta. ?Membranes: ? Timmons-pink, semitransparent. ??100% marginal insertion. ?Cord: ?45.0 x 1.0 cm; decreased coiling; three vessels; ? central insertion. ? Surface: ? Blue-parker with clear membranes. ?Maternal Surface: ??Smooth and intact. ?Parenchyma: ?The specimen is serially sectioned at 0.5-cm to ? 1.0-cm intervals. ??Sections show red-brown, spongy, ? homogeneous parenchyma. ? Sections/Processing : ??Sections are submitted as follows: ??(1) membrane ? roll; (2) proximal and distal cord; (3) surface ? with parenchyma; (4) maternal surface with ? parenchyma. ??(R4) ??aje/LCS ? ---Clinical Information--- ? Specimen Submitted: ? A - Placenta ? [facility] ? Provider: ?? LORRI CADET ? Pt. Name: ?? CHRIS GONZALEZ ? Acc #: ?[id number] ?Pt. ? Col Date: ?? 10/13/2010 ? /Sex: ?1990,(19 years),Female ? Rec Date: ?? 10/16/2010 ? LOC: ?BP ? SURGICAL PATHOLOGY ? Clinical History/Diagnosis: ? PPROM with delivery at 35 weeks after 7+ days ruptured CERNER MILLENNIUM 10/13/2010 9:24 PM EDT Lorri Cadet MD PATHOLOGY/CYTOLOGY O RDMAURY CERNER MILLENNIUM * (ABNORMAL) REFLEX LAB-A-DIFF (10/12/2010 7:56 PM EDT) Neutrophil % 69.0 34.0 - 71.0 % CERNER MILLENNIUM Neutrophil Absolute 6.80(H) 1.50 - 6.30 x10(3)/mc L CERNER MILLENNIUM Lymph % 20.8 19.0 - 53.0 % CERNER MILLENNIUM Lymphocytes Abs 2.1 1.0 - 3.6 x10(3)/mc L CERNER MILLENNIUM Monocyte % 8.1 4.0 - 13.0 % CERNER MILLENNIUM Monocyte Abs 0.8 0.2 - 1.0 x10(3)/mc L CERNER MILLENNIUM Eos % 1.9 0.0 - 7.0 % CERNER MILLENNIUM Eosinophils Abs 0.2 0.0 - 0.5 x10(3)/mc L CERNER MILLENNIUM Basophil % 0.1 0.0 - 2.0 % CERNER MILLENNIUM Baso Absolute 0.0 0.0 - 0.2 x10(3)/mc L CERNER MILLENNIUM Immature Gran % 0.10 0.00 - 0.66 % CERNER MILLENNIUM Comment: Immature granulocytes(IG's)percentage and absolute count will include metamyelocytes, myelocytes, and promyelocytes. Blood smears from CBCs yielding IG's will be scanned manually for concordance. If this scan disagrees with the automated IG or if promyelocytes are noted, a manual differential will be performed. Immature Gran Absolute 0.01 0.00 - 0.05 x10(3)/mc L CERNER MILLENNIUM Blood specimen (specimen) 10/12/2010 7:56 PM EDT 10/12/2010 8:09 PM EDT Hernando Yang MD HEMATOLOGY ORDERABLE S [facility] * REFLEX LAB-ANTIBODY SCREEN (10/12/2010 7:56 PM EDT) Ab Screen Interp Negative [facility] Expires at [id number] on: [id number] [facility] Blood specimen (specimen) 10/12/2010 7:56 PM EDT 10/12/2010 8:09 PM EDT Hernando Yang MD BLOOD BANK LAB ORDER SHANI Performing Organization Address [facility] Co de Phone Number [facility] * REFLEX LAB-ABO/RH TYPING (10/12/2010 7:56 PM EDT) ABORH Type O Pos [facility]US[facility] Blood specimen (specimen) 10/12/2010 7:56 PM EDT 10/12/2010 8:09 PM EDT Hernando Yang MD BLOOD BANK LAB ORDER SHANI Performing Organization Address [facility]/ZIP Co de Phone Number [facility] * CBC (with Diff) (10/12/2010 7:56 PM EDT) White Blood Cell 9.9 4.0 - 10.0 x10(3)/mcL CERNER MILLENNIUM Red Blood Cell 4.32 3.93 - 5.22 x10(6)/mcL CERNER MILLENNIUM Hemoglobin 13.0 11.2 - 15.7 gm/dL CERNER MILLENNIUM Hematocrit 39.0 34.0 - 45.0 % CERNER MILLENNIUM Mean Cell Volume 90.3 79.0 - 94.0 fL CERNER MILLENNIUM Mean Cell Hemoglobin 30.1 26.6 - 32.2 pg CERNER MILLENNIUM Mean Cell Hemoglobin Concentration 33.3 32.0 - 36.5 gm/dL [facility] Platelet 201 145 - 370 x10(3)/mcL [facility] RDW Standard Deviation 43.2 35.0 - 46.0 fL [facility] RDW coefficient of variation 13.1 10.9 - 14.4 % [facility] Mean Platelet Volume 10.9 9.0 - 12.0 fL [facility] Blood specimen (specimen) 10/12/2010 7:56 PM EDT 10/12/2010 8:09 PM EDT Hernando Yang MD HEMATOLOGY ORDERABLE S Performing Organization Address [facility] Co de Phone Number [facility] * LECITHIN-SPHINGOMYELIN RATIO (L/S) (10/04/2010 5:00 PM EDT) FLMS 242 [facility] Comment: Reference Range: >vf=278 Immature; high risk of RDS; comparable to an L/S value of <2.0 260-289 Transitional; moderate risk of RDS; comparable to an L/S value between 2.0 and 3.0 <zg=696 Mature; low risk of RDS; comparable to an L/S value of >3.0 Amniotic fluid specimen (specimen) 10/04/2010 5:00 PM EDT 10/04/2010 6:34 PM EDT Vikki Carlin MD BODY FLUIDS AND ST OOLS ORDERABLES Performing Organization Address [facility] Co de Phone Number [facility] * Lamellar Body Count (10/04/2010 5:00 PM EDT) Lamellar Bdy Ct See Note [facility] Comment: Lamellar Body Count Result = 24 LB x10(3)/mcL Called by: RPR, Read back by: VIRGILIO LARSEN, Date/Time:10/04/10 17:28. ?Reference Interval ? Interpretive Criteria 0-15LB x10(3)/mcL ?Immature,high risk of Respiratory Distress Syndrome 16-49LB x10(3)/mcL Transitional,moderate risk of Respiratory Distress Syndrome 50 or greater LB x10(3)/mcL ?? Mature,low risk of Respiratory Distress Syndrome The Lamellar body count performed on amniotic fluid obtained by amniocentesis is useful as a guide to assist the clinician in their decision regarding the maturity of the lung prior to delivery. ?? Lamellar body counts greater than or equal to 50 LB x10(3)/mcL are consistent with a mature lung and predict a low risk of Respiratory Distress Syndrome (RDS). ??Lamellar body values 16-49 LB x10(3)/mcL are considered to be transitional values and carry a moderate risk of RDS. ??Lamellar body values less than or equal to 15 LB x10(3)/mcL are consistent with an immature lung and are indicative of a high risk for the development of RDS. ??As with all laboratory values the results of this test must be considered in relation to the patient s clinical picture. For values that fall in the Transitional or Immature range the provider may consider cascade or follow-up Lung Maturity testing by another method such as the Lecithin-Sphingomyelin (L/S) ratio. Amniotic fluid specimen (specimen) 10/04/2010 5:00 PM EDT 10/04/2010 5:15 PM EDT Vikki Carlin MD HEMATOLOGY ORDERAB LES [facility] Organization Address City/State/[facility] Co de Phone Number [facility] * US OBS SCREENING MORPHOLOGY (10/04/2010 2:40 PM EDT) Anatomical Region Laterality Modality Pelvis, Abdomen Ultrasound 10/04/2010 2:40 PM EDT Narrative 10/04/2010 3:36 PM EDT ?OBSTETRICS REPORT ? (Signed Final 10/04/2010 03:35 pm) Patient Info ID: ? [id number] ? : ??[birth year] (19 yrs) Name: ? CHRIS Vásquez ?Visit Date: 10/04/2010 02:37 pm ? LISA Performed By Performed By: ?? Lexi Ritter RDMS Attending: ?Griffin GONZALES, Dennis Noe Referred By: ?FOUZIA Thorpe MD Accession#: ? [id number] Procedures UOBS - Screening Morphology - [id number] ? [id number] Indications Screening Morphology PPROM Evaluation Heart Rate: ??127 ?bpm Cardiac Activity: ??Observed, normal rhythm Presentation: ?Cephalic Placenta: ?Anterior P. Cord ?Within Normal Limits Insertion: Amniotic Fluid ANA FV: ?Within normal limits ANA Sum: ? 12.15 ?? cm ? Larg Pckt: ?4.53 ??cm RUQ: ?? 4.53 ?cm ?LUQ: ?? 2.81 ?? cm RLQ: ?? 2.72 ?cm ?LLQ: ?? 2.09 ?? cm -------- Biometry -------- BPD: ?84.1 ??mm ?G. Age: ?? 33w 6d ? 51 ??% HC: ?290.2 ??mm ?G. Age: ?? 32w 0d ?< 3 ??% AC: ? 302 ?? mm ?G. Age: ?? 34w 1d ? 66 ??% FL: ? 63.6 ??mm ?G. Age: ?? 32w 6d ? 20 ??% HUM: ?57.3 ??mm ?G. Age: ?? 33w 2d ? 49 ??% CI: ? 83.48 ??% ? 70 - 86 FL/HC: ? 21.9 ??% ? 19.4 - 21.8 HC/AC: ? 0.96 ?0.96 - 1.11 FL/BPD: ?75.6 ??% ? 71 - 87 FL/AC: ? 21.1 ??% ? 20 - 24 Est. FW: ?2218 ?? gm ?? 4 lb 14 oz ?63 ??% Gestational Age Clinical SUE: ??33w 5d ?SUE: ?? 11/17/10 U/S Today: ? 33w 2d ?SUE: ?? 11/20/10 Best: ?33w 5d ?? Det. By: ??Clinical SUE ? SUE: ?? 06/17/11 ------- Anatomy ------- Cranium: ?Visualized Cavum: ?Visualized Ventricles: ? Not visualized due to late gestational age Choroid Plexus: ? Not visualized due to late gestational age Cerebellum: ? Limited Views Posterior Fossa: ?Limited Views Nuchal Fold: ?Not evaluated at this gestational age. Face: ? Limited Views Heart: ?4 chamber view appears normal RVOT: ? Visualized LVOT: ? Visualized Ductal Arch: ?Visualized Diaphragm: ?Visualized Stomach: ?Visualized Abdomen: ?Limited Views Abdominal Wall: ? Not visualized due to late gestational age Cord Vessels: ? 3 vessels - WNL Kidneys: ?Visualized Bladder: ?Visualized Spine: ?Limited Views Limbs: ?Limited views Other: ?? gender: Male Cervix Uterus Adnexa Left Ovary: ?Not visualized Right Ovary: ?? Not visualized -------- Comments -------- Visualization limited due to maternal body habitus and late gestational age. Impression 3rd Trimester Summary Single intrauterine with a gestational age of 33w 5d based on clinical SUE. Composite age based on the current ultrasound alone is 33w 2d. Estimated weight corresponds to the 63th percentile for 33w 5d. Current growth parameters are consistent indicating normal growth. Amniotic fluid volume is within normal limits, ANA = 12.15 cm. Anatomical survey is limited due to the late gestational age, however no structural abnormalities are noted. I ??viewed the images and agree with the above interpretation. Thank you for allowing us to participate in the care of CHRIS GONZALEZ. Please do not hesitate to call if you have any questions. ? Dennis Moya MD Electronically Signed Final Report ?? 10/04/2010 03:35 pm Procedure Note Dennis Moya MD - 10/04/2010 OBSTETRICS REPORT (Signed Final 10/04/2010 03:35 pm) Patient Info ID: [id number] : [birth year] (19 yrs) Name: CHRIS Vásquez Visit Date: 10/04/2010 02:37 pm LISA Performed By Performed By: Lexi Ritter RDMS Attending: Dennis Moya MD Referred By: FOUZIA Thorpe MD Procedures UOBS - Screening Morphology - [id number] Indications Screening Morphology PPROM Evaluation Heart Rate: 127 bpm Cardiac Activity: Observed, normal rhythm Presentation: Cephalic Placenta: Anterior P. Cord Within Normal Limits Insertion: Amniotic Fluid ANA FV: Within normal limits ANA Sum: 12.15 cm Larg Pckt: 4.53 cm RUQ: 4.53 cm LUQ: 2.81 cm RLQ: 2.72 cm LLQ: 2.09 cm -------- Biometry -------- BPD: 84.1 mm G. Age: 33w 6d 51 % HC: 290.2 mm G. Age: 32w 0d < 3 % AC: 302 mm G. Age: 34w 1d 66 % FL: 63.6 mm G. Age: 32w 6d 20 % HUM: 57.3 mm G. Age: 33w 2d 49 % CI: 83.48 % 70 - 86 FL/HC: 21.9 % 19.4 - 21.8 HC/AC: 0.96 0.96 - 1.11 FL/BPD: 75.6 % 71 - 87 FL/AC: 21.1 % 20 - 24 Est. FW: 2218 gm 4 lb 14 oz 63 % Gestational Age Clinical SUE: 33w 5d SUE: 11/17/10 U/S Today: 33w 2d SUE: 11/20/10 Best: 33w 5d Det. By: Clinical SUE SUE: 11/17/10 ------- Anatomy ------- Cranium: Visualized Cavum: Visualized Ventricles: Not visualized due to late gestational age Choroid Plexus: Not visualized due to late gestational age Cerebellum: Limited Views Posterior Fossa: Limited Views Nuchal Fold: Not evaluated at this gestational age. Face: Limited Views Heart: 4 chamber view appears normal RVOT: Visualized LVOT: Visualized Ductal Arch: Visualized Diaphragm: Visualized Stomach: Visualized Abdomen: Limited Views Abdominal Wall: Not visualized due to late gestational age Cord Vessels: 3 vessels - WNL Kidneys: Visualized Bladder: Visualized Spine: Limited Views Limbs: Limited views Other: gender: Male Cervix Uterus Adnexa Left Ovary: Not visualized Right Ovary: Not visualized -------- Comments -------- Visualization limited due to maternal body habitus and late gestational age. Impression 3rd Trimester Summary Single intrauterine with a gestational age of 33w 5d based on clinical SUE. Composite age based on the current ultrasound alone is 33w 2d. Estimated weight corresponds to the 63th percentile for 33w 5d. Current growth parameters are consistent indicating normal growth. Amniotic fluid volume is within normal limits, ANA = 12.15 cm. Anatomical survey is limited due to the late gestational age, however no structural abnormalities are noted. I viewed the images and agree with the above interpretation. Thank you for allowing us to participate in the care of CHRIS GONZALEZ. Please do not hesitate to call if you have any questions. Dennis Moya MD Electronically Signed Final Report 10/04/2010 03:35 pm Natali Ruelas MD IMG US OB ORDERABLES * (ABNORMAL) REFLEX LAB-A-DIFF (10/04/2010 1:50 PM EDT) Neutrophil % 74.7(H) 34.0 - 71.0 % CERNER MILLENNIUM Neutrophil Absolute 6.63(H) 1.50 - 6.30 x10(3)/mc L CERNER MILLENNIUM Lymph % 18.2(L) 19.0 - 53.0 % CERNER MILLENNIUM Lymphocytes Abs 1.6 1.0 - 3.6 x10(3)/mc L CERNER MILLENNIUM Monocyte % 4.7 4.0 - 13.0 % CERNER MILLENNIUM Monocyte Abs 0.4 0.2 - 1.0 x10(3)/mc L CERNER MILLENNIUM Eos % 2.1 0.0 - 7.0 % CERNER MILLENNIUM Eosinophils Abs 0.2 0.0 - 0.5 x10(3)/mc L CERNER MILLENNIUM Basophil % 0.2 0.0 - 2.0 % CERNER MILLENNIUM Baso Absolute 0.0 0.0 - 0.2 x10(3)/mc L CERNER MILLENNIUM Immature Gran % 0.10 0.00 - 0.66 % [facility] MILLENNI[facility] Comment: Immature granulocytes(IG's)percentage and absolute count will include metamyelocytes, myelocytes, and promyelocytes. Blood smears from CBCs yielding IG's will be scanned manually for concordance. If this scan disagrees with the automated IG or if promyelocytes are noted, a manual differential will be performed. Immature Gran Absolute 0.01 0.00 - 0.05 x10(3)/mc L [facility]ERN[facility] MILLENNIUM Blood specimen (specimen) 10/04/2010 1:50 PM EDT 10/04/2010 2:13 PM EDT Vikki Carlin MD HEMATOLOGY ORDERAB LES Performing Organization Address [facility] [facility] Co de Phone Number [facility] * REFLEX LAB-ANTIBODY SCREEN (10/04/2010 1:50 PM EDT) Ab Screen Interp Negative CERNER EDINENNIUM Expires at [id number] on: [id number] [facility] MILL[facility] Blood specimen (specimen) 10/04/2010 1:50 PM EDT 10/04/2010 2:13 PM EDT Vikki Carlin MD BLOOD BANK LAB ORD ERABLES Performing Organization Address [facility]/[facility] Co de Phone Number [facility] * REFLEX LAB-ABO/RH TYPING (10/04/2010 1:50 PM EDT) ABORH Type O Pos [facility] EDIN[facility] Blood specimen (specimen) 10/04/2010 1:50 PM EDT 10/04/2010 2:13 PM EDT Vikki Carlin MD BLOOD BANK LAB ORD ERABLES Performing Organization Address [facility]/[facility] Co de Phone Number [facility] * CBC (with Diff) (10/04/2010 1:50 PM EDT) White Blood Cell 8.9 4.0 - 10.0 x10(3)/mcL CERNER MILLENNIUM Red Blood Cell 4.27 3.93 - 5.22 x10(6)/mcL CERNER MILLENNIUM Hemoglobin 13.2 11.2 - 15.7 gm/dL CERNER MILLENNIUM Hematocrit 38.9 34.0 - 45.0 % CERNER MILLENNIUM Mean Cell Volume 91.1 79.0 - 94.0 fL CERNER MILLENNIUM Mean Cell Hemoglobin 30.9 26.6 - 32.2 pg CERNER MILLENNIUM Mean Cell Hemoglobin Concentration 33.9 32.0 - 36.5 gm/dL [facility] Platelet 185 145 - 370 x10(3)/mcL [facility] RDW Standard Deviation 45.7 35.0 - 46.0 fL [facility] RDW coefficient of variation 13.8 10.9 - 14.4 % [facility] Mean Platelet Volume 11.0 9.0 - 12.0 fL [facility] Blood specimen (specimen) 10/04/2010 1:50 PM EDT 10/04/2010 2:13 PM EDT Vikki Carlin MD HEMATOLOGY ORDERAB LES [facility] * Group B Strep Culture Screen (10/04/2010 9:00 AM EDT) Group B Streptococcus Culture ? Patient Name: CHRIS GONZALEZ ?Ordered By: VIKKI CARLIN ? MR#: [id number] ?LOC: ??BP ? /Sex: ??1990 (19 years), ? Female ? PROCEDURE: Group B Streptococcus Culture ?SOURCE: Vag/Rectal ? COLLECTED: 10/04/2010 09:00 ? STARTED: 10/04/2010 13:35 ? FINAL REPORT ? Final Report ? Verified: 011 07:04 ? Beta Hemolytic Streptococci, Group B isolated ? DALE BECERRIL Pooled specimen from vaginal introitus and rectal swab (specimen) 10/04/2010 9:00 AM EDT 10/04/2010 1:34 PM EDT Vikki Carlin MD MICROBIOLOGY - GEN ERAL ORDERABLES DALE BECERRIL documented in this encounter Visit Diagnoses Not on filedocumented in this encounter Active and Recently Administered Medications Times are shown in EDT. Scheduled Medication Order 10/14/2010 10/15/2010 10/16/2010 ketorolac (TORADOL) injection 30 mg (COMPLETED) 30 mg, Intravenous, EVERY 6 HOURS SCHEDULED, 4 doses, First dose on 10/14/10 at 0000, Last dose on 10/14/10 at 1600, For severe pain, Routine 0400 (Given - Provider: Liya Parrish RN)1000 (Given - Provider: Raya Barragan RN)1600 (Given - Provider: Raya Barragan RN) PRN Medication Order 10/14/2010 10/15/2010 10/16/2010 diph,pertuss(acel),tet vac(PF) (ADACEL, Tdap) injection 0.5 mL (COMPLETED) 0.5 mL, Intramuscular, PRIOR TO DISCHARGE, 1 dose, Starting on Sat10/13/10 at 2124, Until Sat10/16/10 at 1440, Per Protocol, Routine 1440 (Given - Provider: Nesha Borrego RN) docusate sodium (COLACE) capsule 100 mg 100 mg, Oral, 2 TIMES DAILY PRN, Starting on Sat10/04/10 at 1224, Until Sat10/16/10 at 2020, Constipation, Routine 0916 (Given - Provider: Shani Contreras RN)2052 (Given - Provider: Phyllis Goldman RN) 823 (Given - Provider: Nesha Borrego RN) ibuprofen (ADVIL;MOTRIN) tablet 600 mg 600 mg, Oral, EVERY 6 HOURS PRN, Starting on Sat10/15/10 at 1006, Until Sat10/16/10 at 2020, Pain, Maximum dose of 3200 mg from all sources in 24 hours, Routine 2300 (Due) 0500 (Due)1245 (Given - Provider: Shani Contreras, KIKI)1900 (Given - Provider: Shani Contreras RN) 0123 (Given - Provider: Phyllis Goldman, KIKI)0823 (Given - Provider: Nesha Borrego, RN)1538 (Given - Provider: Brenda Guzman, RN) OXYcodone-acetaminophe n (PERCOCET) 5-325 mg per tablet 1-2 tablet 1-2 tablet, Oral, EVERY 3 HOURS PRN, Starting on Sat10/13/10 at 2124, Until Sat10/16/10 at 2020, Pain, moderate-severe pain, Administer 1 tablet for moderate pain and 2 tablets for severe pain, Routine 0330 (Given - Provider: Liya Parrish RN)0645 (Given - Provider: Liya Parrish RN)1012 (Given - Provider: Raya Barragan RN)1404 (Given - Provider: Raya Barragan RN)1837 (Given - Provider: Raya Barragan RN)2259 (Given - Provider: Shivani Pineda RN) 0501 (Given - Provider: Shivani Pineda RN)0914 (Given - Provider: Shani Contreras RN)1518 (Given - Provider: Shani Contreras, KIKI)2054 (Given - Provider: Phyllis Goldman RN) 0122 (Given - Provider: Phyllis Goldman RN)0547 (Given - Provider: Phyllis Goldman RN)0934 (Given - Provider: Nesha Borrego, KIKI)1537 (Given - Provider: Brenda Guzman, KIKI) documented in this encounter Care Teams Gun Numberer Relationship Specialty Start Date End Date None None PCP - General 10/04/10 documented as of this encounter
--- OUTSIDE RECORDS SUMMARY | 2024-01-23 10:03 | XMS_ITS | Encounter Summary ---
Author Organization [facility] Address [facility] [place] [address] Care Team Providers Care Furnace Liner Name Role Phone None Primary Care Provider Unavailabl e Reason for Visit * Reason Comments Rupture of Membranes PREMATURE RUPTURE O F MEMEBRANES Encounter Details Date Type Department Care Team (Latest Contact Info) Description 10/04/2010 11:50 AM EDT - 10/16/2010 6:18 PM EDT Hospital [place] [address] Vikki Carlin MD [facility] [address] OB[place] [address] premature rupture of membranes; Yuri rupt membran-unspec; SUE 11/17/10; premature rupture of membranes 10/04/10; DUMMY CODE, SEND TO [employer]; Failed medical or unspecified induction of labor, delivered; Abnormality in heart rate/rhythm, delivered; Prolong rupt membran-deliv; Outcome of delivery, single liveborn; Early onset delivery-del Discharge Disposition: Home Social History Tobacco Use [...] this in detail. Call your doctor or headwaitress for: Fever more than 100.5 Heavy bleeding [...] follow up appointment. You may call the [facility] at any time for guidance or for answers to questions that come up prior to you follow up appointment. Your [facility] Provider can be reached during office hours at Midwives Obstetricians [facility] Follow-up Clinic AFTER OFFICE HOURS for the technical support associate or headwaitress chief of production Provider electronic signature confirms that discharge instructions were reviewed with the patient. A copy was printed and given to the patient. * Attachments The following attachments cannot be sent through Care Everywhere. * SECTION: WHAT TO EXPECT AT HOME ([place]) * : AFTER YOUR VISIT ([place]) documented in this encounter Medications at Time [...] accepted. Living Situation: lives with Juan AYERS Where:[address] [place] [address], [place] [address], living in an apt at her parents house, rent free [employer] Approx time in community: 2 weeks, just moved from [place] Social Resources:none, don't know anyone in the community, except her parents Extended family in area for support:both of their family is from here Cognitive Resources: Intact Childbirth Education: Yes Educational level:unknown Functional Status: Ambulatory, Independent, Without limitations Complications requiring follow-up: Financial Resources:both parents unemployed, no current income. Health Insurance Coverage:Steffanie is covered under her father's [employer] Blue policy, but they baby will not be added to that policy. Her [place] Medicaid application has not been approved, although it has beensubmitted. Scrap Shear Operator Chosen:unknown Baby's Name: Todd Yuneau Anticipated Continuing Care Needs: Physical: Recovery from . Initiation of . Emotional: Adjustment to period Psychological: Hx of anxiety/depression. PROM X 9 days. At risk for PPD. Educational: Parenting Continuing Care Plan Development: DME ordered :Unable to obtain a breast pump from [employer] since they are not adding the baby to the insurance policy. They do not have the giles to rent a breast pump from [facility]. [facility], , where mom is already connected to [facility], and they do not have pumps, but will call [facility] who deals with medical necessity pumps. Mom is being discharged home today, but will board on BP tonight, and hope to stay at [facility] tomorrow, and use our and [facility] [place] pumps until Todd can breast feed. Breast Pump: Other: Have infant car seat, but it is for infants > 5 lbs, and Todd weighs @ 4/4oz. Parents each have a rail car driver's license and mom has a car. They have adequate family support. No direct referrals made at this time, but [facility] referral will be made when is discharged home.. * Hernando Yang MD - 10/16/2010 6:33 AM EDT Progress Note ID: Steffanie is a 19yo woman POD#3 s/p section for intolerance of labor in thesetting of induction for PPROM. S: Steffanie is feeling well. Her pain has been well controlled by percocet and ibuprofen. Tolerating a regular diet, and ambulating without difficulty. Voiding without difficulty. Passing flatus. Lochia is light. Pumping for her . Physical Exam: Temp: [36.4 ??C (97.5 ??F)-36.6 [...] Screen Interp No range found Negative Assessment/Plan: Steffanie is a 19yo woman POD#3 s/p section [...] home today. HERNANDO YANG 10/16/2010 * Lorri Cadte MD - 10/15/2010 7:09 AM EDT Progress Note ID: Steffanie is a 19yo woman POD#2 s/p section for intolerance of labor in thesetting of induction for PPROM. S: Steffanie is feeling well. Her pain has been well controlled by ibuprofen and oxycodone. Toleratinga regular diet, and ambulating And voiding without difficult. Lochia is light. Pumping for her . Physical Exam: Filed Vitals: 10/14/10 2200 BP: [...] Screen Interp No range found Negative Assessment/Plan: Steffanie is a 19yo woman POD#2 s/p section [...] 10/14/2010 7:57 AM EDT Progress Note ID: Steffanie is a 19yo woman POD#1 s/p section for intolerance of labor in thesetting of induction for PPROM. S: Steffanie is feeling well. Her pain has been well controlled by toradol and oxycodone. Tolerating aregular diet, and ambulating without difficult. Still needs to void after alcazar removal. Lochia is light. Pumping for her . Physical Exam: Temp: [36.4 ??C (97.5 ??F)-36.9 [...] Screen Interp No range found Negative Assessment/Plan: Steffanie is a 19yo woman POD#1 s/p section [...] postoperative care. Shelly Jiménez MD * Liya Duarte RN - 10/14/2010 3:[address] Bell into see Pt. Discussed transfer of infant to [facility]. PT sat up to pump. * Lorri [...] change but ultimately return. Uterine Activity Mode: [place] Contraction Frequency: 4 Contraction Duration: 40-50 Contraction [...] to baseline Moderate variability Uterine Activity Mode: [place] Contraction Frequency: 3-8 Contraction Duration: 20-50 Contraction [...] documented. Maikel Espinosa MD, MS 10/13/2010 * Lyia Duarte RN - 10/13/2010 6:54 AM EDT POC discussed with Dr. Ruelas. PT up to bathroom to shower. Efm and toco removed. Pt denies any contractions or cramping. * Liya Duarte RN - 10/13/2010 6:04 AM EDT Pt [...] with removal of cervidil) Uterine Activity Mode: Palpation;[place] Contraction Frequency: irr Contraction Duration: 40-60 Contraction Quality: Mild Resting Tone Palpated: Soft Assessment: 19 yo at 35 0/7 wga undergoing IOL for PPROM after failed IOL at 34 wga. Labor Assessment: Undergoing IOL for PPROM. nontolerance of cervidil, so removed. Plan: Labor Plans: Will allow fetus to recover Day team to determine next step in induction * Liya Duarte RN - 10/13/2010 2:56 AM EDT 0230-fht [...] Denies any contractions or cramping. * Liya Duarte RN - 10/13/2010 2:04 AM EDT Pt up to bathroom. Denies any complaints of. Back to bed and to right side. Unable to trace fht, maternal heart tones tracing. Palpated my radial pulse to match. To left side and efm adjusted. * Liya Duarte RN - 10/13/2010 1:41 AM EDT 0105-Pt moved from left side to right side. Efm and toco adjusted. Pt denies any contraction or cramping. Denies need to void. * Liya Duarte RN - 10/13/2010 12:50 AM EDT Pt [...] Accelerations: Present Decelerations: None Uterine Activity Mode: [place] Contraction Frequency: none Contraction Duration: 60-90 Contraction Quality: Mild Resting Tone Palpated: Soft Assessment: 19 yo G1 at 35 0/7 wga underging IOL for PPROM. Labor Assessment: not in labor Plan: Labor Plans: Cervidil placed * Liya Duarte RN - 10/13/2010 12:10 AM EDT Pt sleeping. Call light within reach. * Liya Duarte RN - 10/12/2010 10:53 PM EDT 2237-Pt up to bathroom. Pt denies any contractions at this time. Requesting Ambien to help her sleep. Dr Ortiz notified of pt request. * Liya Duarte RN - 10/12/2010 9:59 PM EDT Pt up to bathroom. Denies feeling any contractions or cramping. No c/o. Call light within reach. Siderails up x2. * Liya Duarte RN - 10/12/2010 9:33 PM EDT 2000 [...] PROGRESS NOTE Date Performed: 10/10/2010 Patient Name: Steffanie Gonzalez Provider: NATALISPENSER RUELAS ID: Steffanie Gonzalez is a 19 y.o. year old [...] PROGRESS NOTE Date Performed: 10/10/2010 Patient Name: Steffanie Gonzalez Provider: NATALI RUELAS ID: Steffanie Gonzalez is a 19 y.o. year old [...] for PT involvement Lorri Hassan PT Pager [phone] * Shelly Jiménez MD - 10/10/2010 7:15 AM EDT ANTEPARTUM PROGRESS NOTE Date Performed: 10/10/2010 Patient Name: Steffanie Vásquez Geraldine Provider: NATALI RUELAS ID: Steffanie Gonzalez is a 19 y.o. year old [...] PROGRESS NOTE Date Performed: 10/09/2010 Patient Name: Steffanie Gonzalez Provider: NATALI RUELAS ID: Steffanie Gonzalez is a 19 y.o. year old [...] PROGRESS NOTE Date Performed: 10/08/2010 Patient Name: Steffanie Gonzalez Provider: LARISSA CAMPOS ID: Steffanie Gonzalez is a 19 y.o. year old [...] Accelerations: Present Decelerations: None Uterine Activity Mode: [place] Contraction Frequency: None Contraction Duration: 60sec Contraction Quality: Mild Resting Tone Palpated: Soft Assessment: Labor Assessment: Not in labor. Other Issues: None Plan: Labor Plans: Discussed options for management, including giving further cervical ripening versus resting overnight. Patient would prefer Cervidil at this time. Cervidil #2 placed. NATALI RUELAS 10/06/2010 Addendum: Discussed with Dr Ruelas at the time of his evaluation. Continue cervical ripening/IOL efforts with Cervidil. Gardenia Lanza MD * Alfonso Lucretia Yonatan, [facility] - 10/06/2010 4:14 PM EDT CARE MANAGEMENT/SOCIAL WORK: Referral/contact:Met with Steffanie, ANDRIA Martinez, and Steffanie's mother this afternoon to introduce socialwork role, offer support, and assess resource needs. Steffanie is being induced at 34 0/7 weeks for PPROM and concern for chorioamnionitis. S:We just got here from [place] on Saturday. I was going to get my care at [place], but my water broke, and so at my first appointment there, they sent me here. O:Steffanie and Juan are an intact unmarried couple who state that they are both from [place], [place]. They went to school together in [place], and dated in high school, then parted ways, and Rufusmoved out to [place] to get a new start in 2006. The couple reconnected, and Steffanie moved to [place] eight months ago to be with Juan. They made the decision to return to [place] because they felt that family proximity and support would be important to them as they become parents. Both state that they areglad to be home in [place]. At this time, they have moved into [facility] parents home in [place]. They state that they have not unpacked anything. As they have just arrived, Juan does not have a job, so at this time, they do not have income. Steffanie plans to apply for [place] Medicaid and other benefits when she is able, and the couple have already met with a [facility] financial systems analyst, who will assist them in applying for Medicaid. SW answered the couple's questions regarding the ICN and [facility]. They are thinking that theywill stay at [facility] after the baby is born. Steffanie reports that the baby's head is down, and she expressed some frustration that she has not made more progress with her labor since her induction was begun on Saturday. A: Young couple who appear excited about becoming parents, and who understand that at the baby's gestational age, he should do well. While they do not have income at this time, Steffanie;s mother indicates her family's willingness to assist them while they get resettled in [place]. [facility] after mom is discharged from [facility]. P: SW to follow for support to family and assistance in applying for resources. * Nataliia Kruger RN - 10/06/2010 2:40 PM EDT Pt off monitor to shower. Placed back on monitor at 1530 * Lorri Hassan, PT - 10/06/2010 1:37 PM EDT Physical therapy 19 year old , admit with Premature Rupture of Membranes at 33 6/7 wks gestation. Pt moved to [place] with her boyfriend from [place], arriving on Saturday by car. Ruptured membranes on Saturday and transported from [place]. Being induced today due to mature lung maturity. Steffanie is a 19 y.o. Single . Physical Therapy consult for bedrest exercises received 10/05/10; pt being induced today so will defer PT consultation * Nataliia Kruger RN - 10/06/2010 11:46 AM EDT 0945: Pitocin off as ordered 1020 am Misoprostil 50 mcg given buccally as ordered. Steffanie has contracted irregularly and mildly.She has no pain. It doubtful that she has made cervical change. Based on her pprom, Dr. Melvin and Olu agreed to give miso buccally to limit contamination. Steffanie remains cheerful and optimistic despite the prolonged [...] Accelerations: Present Decelerations: None Uterine Activity Mode: [place] Contraction Frequency: none Contraction Duration: 40-60 Contraction [...] No decels. No contractions. Category I. A/P: Steffanie is a 19yo at 34 weeks admitted [...] Kruger RN - 10/05/2010 6:34 PM EDT Steffanie is sitting up in bed. She is [...] Office of Care Management (OCM) / Clinical Clinic Lpn (CRC)/ Initial Assessment Discussed patient with Provider Team and in multidisciplinary discharge-planning rounds. Reviewed record and interviewed patient. Introduced/reviewed CRC role and services accepted. REASON for HOSPITALIZATION: Premature Rupture of Membranes at 33 6/7 wks gestation. [place] moved [place] boyfriend from [place], arriving on Saturday by car. Ruptured membranes on Saturday and transported from [place]. Being induced today due to mature lung maturity. Steffanie is a 19 y.o. Single . PMH/PSH: Healthy young woman; First . PREVIOUS FUNCTIONAL STATUS / SOCIAL / FAMILY SUPPORTS: Intact relationship with the FOB. Both are living at the home of her parents in [place]. Her father is working on building an apartmentat their home for pt and her BF and their . FOB looking for work. Pleasant, upbeat young woman in process of Pitocin induction. Accompanied by her mom who appears very supportive. CURRENT FUNCTIONAL STATUS: Awake, alert, excited about . ADVANCE DIRECTIVES: No INSURANCE COVERAGE / FINANCIAL ISSUES: Pt is under her father's insurance plan [facility] CURRENT HOME/COMMUNITY SERVICES/EQUIPMENT: DME: Will order Breast Pump once is delivered as he will be and in the ICN. Pt desires to breast feed. Does not have a pump. A relative has purchased and mailed her a Medela so it is en route. Home Health Agency: [facility] for mom/baby Other: Will need to apply for [place] Medicaid as secondary for self and for Dr Hughes for infant. Application provided to patient and request for PASS office to have a PFS worker come and assist pt with application prior to discharge. MATERIALS HANDLING EQUIPMENT OPERATOR REFERRAL: MATERIALS HANDLING EQUIPMENT OPERATOR available as needed. Notified MATERIALS HANDLING EQUIPMENT OPERATOR - Support/Financial/Medication Assistance; See MATERIALS HANDLING EQUIPMENT OPERATOR notes for further needs. PRIMARY CARE PHYSICIAN: None None POTENTIAL DISCHARGE NEEDS: VNA, Breast Pump, [facility] lodging, Assist with obt. Dr Hughes for infant (to be named Todd Mendoza Jr) Has infant car seat ordered and transportation home with parents. Pt also has own automobile. PATIENT/FAMILY EDUCATION NEEDS: [facility] care, infant, Supports and Services in the [facility]. ANTICIPATED BARRIERS TO DISCHARGE: None TRANSPORTATION @ [...] Accelerations: Present Decelerations: Variable Uterine Activity Mode: [place] Contraction Frequency: 2-5 Contraction Duration: 40-60 Contraction Quality: Mild Resting Tone Palpated: Soft GBS + without sensitivities done Assessment: Labor Assessment: Early latent labor. Other Issues: reaction to penicillin Plan: Labor Plans: Expectant management. D/C penicillin Start vancomycin * Liya Duarte RN - 10/05/2010 6:29 AM EDT 0527- [...] Present Decelerations: Prolonged (variable.) Uterine Activity Mode: Palpation;[place] Contraction Frequency: 4-6 Contraction Duration: 40-60 Contraction [...] fetus and contraction pattern allows * Liya Duarte RN - 10/05/2010 5:01 AM EDT 0443- [...] and POC with pt. Reassured. * Liya Duarte RN - 10/05/2010 4:16 AM EDT FHT variable noted to 85-90 for 90 seconds. Pt lying flat on back. Repositioned to Right tilt. Discussed. States she is starting to feel some cramping. Denies any pain. * Liya Duarte RN - 10/05/2010 3:[address] Sánchez updated on pt status and Pitocin at 20mu/min. No new orders received. * Liya Duarte RN - 10/05/2010 1:56 AM EDT 0142 Pt up to bathroom. Denies feeling any contractions. No c/o * Liya Duarte RN - 10/04/2010 10:27 PM EDT Pt educated on pitocin and induction process. Delivery and OR discussed. Pt verbalized understanding. PT very excited about process. Family at bedside. * Liya Duarte RN - 10/04/2010 9:[address] Sánchez into see pt. Lab results discussed and induction. Pt verbalized understanding. Pt out of bed into wheelchair and transferred to BP 12 for induction. efm and toco applied. * Vikki Carlin MD - 10/04/2010 9:42 PM EDT Antepartum Progress Note Patient Name: Steffanie Gonzalez : 86 Subjective: Steffanie is doing well, denies any contractions, fever [...] of the patient is below: * Liya Duarte RN - 10/04/2010 8:41 PM EDT BP [...] Provider (if early referral or co-managed by [facility]): [facility] greenskeeper laborer ([place]) Presenting Diagnosis/Chief Complaint: Steffanie Gonzalez was admitted today secondary to suspected PPROM. Steffanie Gonzalez is a 19 y.o. year old [...] then recommended to go to directly to [facility]. Record Review Lab Review ABO/RH O Pos, [...] issues: ?? Follow GBS culture (sent at [facility] today) NATALI RUELAS 10/04/2010 I have seen [...] has been uncomplicated but just relocated [place] and had first visit here this morning. [...] hysterotomy was created, extended manually, and the infant was delivered atraumatically and handed off to [...] 10/19/2010 9:46 AM EDT * Miscellaneous - ProviderLokesh - 10/19/2010 9:42 AM EDT * Discharge Summary - Natali Ruelas - 10/16/2010 8:08 AM EDT Obstetrics - Discharge Summary Inpatient Obstetrics - Discharge Summary Patient Name: Steffanie Gonzalez Patient Age: 19 y.o. Birthdate: 1990 [...] History (per admit note cut and paste) Steffanie Gonzalez is a 19 y.o. year old [...] then recommended to go to directly to [facility]. Hospital Course: Vaginal amniotic fluid pool was [...] at post- visit. Follow-up Recommendations for Providers: Lillie removed prior to discharge 6 week post- follow up. Instructions Given to Patient at Discharge: Provider Instructions None General Instructions None Future Appointments and Orders Future Orders Please Complete By Expires FOLLOW UP [FAQ067 Custom] Process Instructions: Scheduling Instructions: Comments: Remove lillie prior to discharge - visit 6 weeks after delivery with referring provider. Questions: Responses: Referrals: None Cc: Dr. Jackson Fountain MD, [place], [place] Provider Contact Information: None None Discharge [...] assess * Med Student Progress Note - Anai Rabago - 10/10/2010 6:43 AM EDT Obstetrical Antepartum Progress Note Steffanie Gonzalez is a 19 y.o. female at 34w4d gestation with PPROM on 10/04 at 0915. Pt failedprevious IOL, next IOL scheduled at 35 weeks. GBS+, mature FLM. Active Problems: Active Hospital Problems Diagnoses ??? SUE 11/17/10 ??? premature rupture of membranes 10/04/10 Current Medications: Current facility-administered medications ordered in [facility] Medication Dose Route Frequency Last Dose ? ? vitamin 27 & [id number] tablet 1 tablet Oral Daily Last Dose: [...] Consultations: none Additional issues: ?? none Signed: ANAI RABAGO 10/10/2010 * Miscellaneous - Provider, Scanning - 10/08/2010 9:23 AM EDT * Med Student H&P - Addie Mullins - 10/04/2010 1:26 PM EDT Obstetrical Admission Note Referring Hospital: none Referring Provider: Dr. Fountain Presenting Diagnosis/Chief Complaint: Steffanie Gonzalez was admitted today secondary to premature rupture of membranes Steffanie Gonzalez is a 19 y.o. year old female with an SUE of 11/17/2010 who is at 33w5d weeksgestation by 22 week ultrasound and by LMP (irregular periods). At around 5 AM today she reported anon-traumatic rupture of membranes, there were no contractions, vaginal bleeding, decreased movement, or abdominal pain. She has not been ill. She subsequently presented to her local TITLE DEPARTMENT MANAGER in [place], [place] who reported ruptured of membranes by positive nitrazine and ferning before subsequenttransfer to [facility]. Her course was complicated by late care [...] No significant pmhx Past Surgical History none TITLE DEPARTMENT MANAGER History Irregular periods since 11 Pap smears (07/13/09): Normal Prior to Admission Medications Prenatals Allergies Allergies Allergen Reactions ??? No Known Allergies Family History PGF - Alzheimer's dementia MGF - pancreatic Ca Mom - hypothroid Social History Moved recently from [place] to [place] to where father now lives, worked in [employer]. Father of child- Green. Denies smoking, drinking, and illicit drug use. [...] 10/12/2010 7:56 PM EDT TYPE AND SCREEN ([facility]) STAT 10/12/2010 7:56 PM EDT LECITHIN-SPHINGOMYEL IN [...] 10/04/2010 1:50 PM EDT TYPE AND SCREEN ([facility]) Routine 10/04/2010 1:50 PM EDT GROUP B [...] EDT Lorri Cadet MD HEMATOLOGY ORDERABLE S [facility] * (ABNORMAL) CBC (with Diff) (10/14/2010 5:40 [...] Hemoglobin Concentration 33.1 32.0 - 36.5 gm/dL CERNER MILLENNIUM Platelet 169 145 - 370 x10(3)/mc L CERNER MILLENNIUM RDW Standard Deviation 44.0 35.0 - 46.0 fL CERNER MILLENNIUM RDW coefficient of variation 13.3 10.9 - 14.4 % CERNER MILLENNIUM Mean Platelet Volume 10.4 9.0 - 12.0 fL CERNER MILLENNIUM Blood specimen (specimen) 10/14/2010 5:40 AM EDT 10/14/2010 5:58 AM EDT Lorri Cadet MD HEMATOLOGY ORDERABLE S [facility] * Surgical Pathology Report (10/13/2010 9:24 PM EDT) Surgical Pathology Report 00- [id number] ? Location: BP; BP12; A The signing [...] report in rendering the final pathologic diagnosis. [facility] 10/13/2010 9:24 PM EDT Lorri Cadet MD PATHOLOGY/CYTOLOGY O [facility] * SURGICAL PATHOLOGY REPORT (10/13/2010 9:24 PM EDT) Surgical Pathology Report ? [facility] ? Provider: ?? LORRI CADET ? Pt. Name: ?? STEFFANIE GONZALEZ ? Acc #: ?[id number] ?Pt. ? Col Date: ?? 10/13/2010 ? [...] Specimen Submitted: ? A - Placenta ? [facility] ? Provider: ?? LORRI CADET ? Pt. Name: ?? STEFFANIE GONZALEZ ? Acc #: ?[id number] ?Pt. ? Col Date: ?? 10/13/2010 ? /Sex: ?1990,(19 years),Female ? Rec Date: ?? 10/16/2010 ? LOC: ?BP ? SURGICAL PATHOLOGY ? Clinical History/Diagnosis: ? PPROM with delivery at 35 weeks after 7+ days ruptured CERNER MILLENNIUM 10/13/2010 9:24 PM EDT Lorri Cadet MD PATHOLOGY/CYTOLOGY O RDERABLES CERNER MILLENNIUM * (ABNORMAL) REFLEX LAB-A-DIFF (10/12/2010 [...] Absolute 0.01 0.00 - 0.05 x10(3)/mc L [facility] Blood specimen (specimen) 10/12/2010 7:56 PM EDT 10/12/2010 8:09 PM EDT Hernando Yang MD HEMATOLOGY ORDERABLE S [facility] * REFLEX LAB-ANTIBODY SCREEN (10/12/2010 7:56 PM EDT) Pathologist [facility] Ab Screen Interp Negative [facility] Expires at [id number] on: [id number] [facility] Blood specimen (specimen) 10/12/2010 7:56 PM EDT 10/12/2010 8:09 PM EDT Hernando Yang MD BLOOD BANK LAB ORDER SHANI Performing Organization Address City/[facility] Co de Phone Number [facility] JONE * REFLEX LAB-ABO/RH TYPING (10/12/2010 7:56 PM EDT) Pathologist [facility] ABORH Type O Pos [facility] Blood specimen (specimen) 10/12/2010 7:56 PM EDT 10/12/2010 8:09 PM EDT Hernando Yang MD BLOOD BANK LAB ORDER SHANI [facility] * CBC (with Diff) (10/12/2010 7:56 PM EDT) Pathologist [facility] White Blood Cell 9.9 4.0 - 10.0 x10(3)/mcL [facility] Red Blood Cell 4.32 3.93 - 5.22 x10(6)/mcL [facility] Hemoglobin 13.0 11.2 - 15.7 gm/dL [facility] Hematocrit 39.0 34.0 - 45.0 % [facility] Mean Cell Volume 90.3 79.0 - 94.0 fL [facility] Mean Cell Hemoglobin 30.1 26.6 - 32.2 pg [facility] Mean Cell Hemoglobin Concentration 33.3 32.0 - 36.5 gm/dL [facility] Platelet 201 145 - 370 x10(3)/mcL [facility] RDW Standard Deviation 43.2 35.0 - 46.0 fL [facility] RDW coefficient of variation 13.1 10.9 - 14.4 % [facility] Mean Platelet Volume 10.9 9.0 - 12.0 fL [facility] Blood specimen (specimen) 10/12/2010 7:56 PM EDT 10/12/2010 8:09 PM EDT Hernando Yang MD HEMATOLOGY ORDERABLE S Performing Organization Address [facility] de Phone Number [facility] * LECITHIN-SPHINGOMYELIN RATIO (L/S) (10/04/2010 5:00 PM EDT) FLMS 242 [facility] Comment: Reference Range: >pd=482 Immature; high risk of RDS; comparable to an L/S value of <2.0 260-289 Transitional; moderate risk of RDS; comparable to an L/S value between 2.0 and 3.0 <ar=712 Mature; low risk of RDS; comparable to an L/S value of >3.0 Amniotic fluid specimen (specimen) 10/04/2010 5:00 PM EDT 10/04/2010 6:34 PM EDT Vikki Carlin MD BODY FLUIDS AND ST OOLS ORDERABLES Performing Organization Address [facility] Co de Phone Number [facility] * Lamellar Body Count (10/04/2010 5:00 PM EDT) Lamellar Bdy Ct See Note [facility] Comment: Lamellar Body Count Result = 24 [...] EDT Vikki Carlin MD HEMATOLOGY ORDERAB LES [facility] * US OBS SCREENING MORPHOLOGY (10/04/2010 2:40 PM EDT) Anatomical Region Laterality Modality Pelvis, Abdomen Ultrasound 10/04/2010 2:40 PM EDT Narrative 10/04/2010 3:36 PM EDT ?OBSTETRICS REPORT ? (Signed Final 10/04/2010 03:35 pm) Patient Info ID: ? [id number] ? : ??[birth year] (19 yrs) Name: ? STEFFANIE Thalia ?Visit Date: 10/04/2010 02:37 pm ? GERALDINE Performed By Performed By: ?? Lexi Ritter RDMS Attending: ?Griffin GONZALES, Dennis Noe Referred By: ?FOUZIA Thorpe MD Accession#: ? [id number] Procedures UOBS - Screening Morphology - [id number] ? [id number] Indications Screening Morphology PPROM Evaluation Heart Rate: [...] Best: ?33w 5d ?? Det. By: ??Clinical USE ? SUE: ?? 11/17/10 ------- Anatomy ------- Cranium: ?Visualized Cavum: ?Visualized [...] us to participate in the care of STEFFANIE GONZALEZ. Please do not hesitate to call if you have any questions. ? Dennis Moya MD Electronically Signed Final Report ?? 10/04/2010 03:35 pm Procedure Note Dennis Moya MD - 10/04/2010 OBSTETRICS REPORT (Signed Final 10/04/2010 03:35 pm) Patient Info ID: [id number] : [birth year] (19 yrs) Name: STEFFANIE Vásquez Visit Date: 10/04/2010 02:37 pm GERALDINE Performed By Performed By: Lexi Ritter RDMS Attending: Dennis Moya MD Referred By: FOUZIA Thorpe MD Procedures UOBS - Screening Morphology - [id number] Indications Screening Morphology PPROM Evaluation Heart Rate: [...] us to participate in the care of STEFFANIE Thalia GONZALEZ. Please do not hesitate to call [...] Absolute 0.01 0.00 - 0.05 x10(3)/mc L [facility] Blood specimen (specimen) 10/04/2010 1:50 PM EDT 10/04/2010 2:13 PM EDT Vikki Carlin MD HEMATOLOGY ORDERAB LES Performing Organization Address [facility] Co de Phone Number [facility] * REFLEX LAB-ANTIBODY SCREEN (10/04/2010 1:50 PM EDT) Ab Screen Interp Negative [facility] Expires at [id number] on: [id number] [facility] Blood specimen (specimen) 10/04/2010 1:50 PM EDT 10/04/2010 2:13 PM EDT Vikki Carlin MD BLOOD BANK LAB ORD ERABLES Performing Organization Address [facility] Phone Number [facility] * REFLEX LAB-ABO/RH TYPING (10/04/2010 1:50 PM EDT) ABORH Type O Pos [facility] Blood specimen (specimen) 10/04/2010 1:50 PM EDT 10/04/2010 2:13 PM EDT Vikki Carlin MD BLOOD BANK LAB ORD ERABLES Performing Organization Address [facility] Co de Phone Number [facility] * CBC (with Diff) (10/04/2010 1:50 PM EDT) White Blood Cell 8.9 4.0 - 10.0 x10(3)/mcL [facility] Red Blood Cell 4.27 3.93 - 5.22 x10(6)/mcL [facility] Hemoglobin 13.2 11.2 - 15.7 gm/dL [facility] Hematocrit 38.9 34.0 - 45.0 % [facility] Mean Cell Volume 91.1 79.0 - 94.0 fL [facility] Mean Cell Hemoglobin 30.9 26.6 - 32.2 pg [facility] Mean Cell Hemoglobin Concentration 33.9 32.0 - 36.5 gm/dL [facility] Platelet 185 145 - 370 x10(3)/mcL [facility] RDW Standard Deviation 45.7 35.0 - 46.0 fL [facility] RDW coefficient of variation 13.8 10.9 - 14.4 % [facility] Mean Platelet Volume 11.0 9.0 - 12.0 fL [facility] Blood specimen (specimen) 10/04/2010 1:50 PM EDT 10/04/2010 2:13 PM EDT Vikki Carlin MD HEMATOLOGY ORDERAB LES [facility] * Group B Strep Culture Screen (10/04/2010 9:00 AM EDT) Group B Streptococcus Culture ? Patient Name: STEFFANIE GONZALEZ ?Ordered By: VIKKI CARLIN ? MR#: [id number] ?LOC: ??BP ? /Sex: ??1990 (19 years), ? Female ? PROCEDURE: Group B Streptococcus Culture ?SOURCE: Vag/Rectal ? COLLECTED: 10/04/2010 09:00 ? STARTED: 10/04/2010 13:35 ? FINAL REPORT ? Final Report ? Verified: 011 07:04 ? Beta Hemolytic Streptococci, Group B isolated ? [facility] Pooled specimen from vaginal introitus and rectal swab (specimen) 10/04/2010 9:00 AM EDT 10/04/2010 1:34 PM EDT Vikki Carlin MD MICROBIOLOGY - GEN ERAL ORDERABLES [facility] documented in this encounter Visit Diagnoses Diagnosis premature rupture of membranes 10/04/10 Premature rupture of membranes in , unspecified as to episode of care Premature rupture of membranes in , unspecified as to episode of care SUE 11/17/10 state, incidental DUMMY CODE, SEND TO [employer] Failed medical or unspecified induction of labor, delivered Abnormality in heart rate/rhythm, delivered, with or without mention of antepartum condition Delayed delivery after spontaneous or unspecified rupture of membranes, delivered Outcome of delivery, single liveborn Early onset of delivery, delivered, with or without mention of antepartum condition documented in this encounter Administered Medications Inactive Administered Medications - up to 3 most recent administrations Medication Order MAR Action Action Date Dose Rate Site ampicillin 2g vial attach to sodium chloride 0.9% 100 mL Mini-Bag Plus 2 g, Intravenous, EVERY 6 HOURS, 8 doses, First dose on Sat10/04/10 at 1315, Last dose on Sat10/06/10 at 0920, Administer over 15 Minutes Given 10/04/2010 9:20 PM EDT 2 g 400 mL/hr Given 10/04/2010 3:20 PM EDT 2 g 400 mL/hr azithromycin (ZITHROMAX) 1,000 mg in sodium chloride 0.9% 1,010 mL 1,000 mg, Intravenous, ONCE, 1 dose, On Sat10/04/10 at 1330, Administer over 3 Hours Given 10/04/2010 4:00 PM EDT 1,000 mg 336.7 mL/hr betamethasone acetate-betamethasone sodium phosphate (CELESTONE) injection 12 mg 12 mg, Intramuscular, EVERY 24 HOURS, 2 doses, First dose on Sat10/04/10 at 1245, Last dose on Sat10/05/10 at 1245, Routine Given 10/04/2010 3:30 PM EDT 12 mg dinoprostone (CERVIDIL) vaginal insert 10 mg 10 mg, Vaginal, ONCE, 1 dose, On Sat10/06/10 at 2045, Routine Given 10/06/2010 9:05 PM EDT 10 mg dinoprostone (CERVIDIL) vaginal insert 10 mg 10 mg, Vaginal, ONCE, 1 dose, On Sat10/12/10 at 1715, Routine Given 10/12/2010 8:07 PM EDT 10 mg diph,pertuss(acel),tet vac(PF) (ADACEL, Tdap) injection 0.5 mL 0.5 mL, Intramuscular, PRIOR TO DISCHARGE, 1 dose, Starting on Sat10/13/10 at 2124, Until Sat10/16/10 at 1440, Per Protocol, Routine Given 10/16/2010 2:40 PM EDT 0.5 mLs Left Arm docusate sodium (COLACE) capsule 100 mg 100 mg, Oral, 2 TIMES DAILY PRN, Starting on Sat10/04/10 at 1224, Until Sat10/16/10 at 2020, Constipation, Routine Given 10/16/2010 8:24 AM EDT 100 mg Given 10/15/2010 8:53 PM EDT 100 mg Given 10/15/2010 9:16 AM EDT 100 mg ibuprofen (ADVIL;MOTRIN) 600 mg tablet 1 dose, Starting on Sat10/15/10 at 1230, Until Sat10/15/10 at 1245, SHANI CONTRERAS: Cabinet Override ibuprofen (ADVIL;MOTRIN) tablet 600 mg 600 mg, Oral, EVERY 6 HOURS PRN, Starting on Sat10/15/10 at 1006, Until Sat10/16/10 at 2020, Pain, Maximum dose of 3200 mg from all sources in 24 hours, Routine Given 10/16/2010 3:38 PM EDT 600 mg Given 10/16/2010 8:23 AM EDT 600 mg Given 10/16/2010 1:23 AM EDT 600 mg ketorolac (TORADOL) injection 30 mg 30 mg, Intravenous, EVERY 6 HOURS SCHEDULED, 4 doses, First dose on Sat10/14/10 at 0000, Last dose on Sat10/14/10 at 1600, For severe pain, Routine Given 10/14/2010 4:00 PM EDT 30 mg Given 10/14/2010 10:00 AM EDT 30 mg Given 10/14/2010 4:00 AM EDT 30 mg lactated ringers infusion 25 mL/hr, Intravenous, CONTINUOUS, Starting on Sat10/04/10 at 2215, Until Sat10/07/10 at 1237 New Bag 10/06/2010 8:00 AM EDT 50 mL/hr 50 mL/ hr Rate/Dose Change 10/06/2010 12:15 AM EDT 50 mL/hr 50 mL/ hr Rate/Dose Verify 10/05/2010 10:00 AM EDT 25 mL/hr 25 mL/ hr misoprostol 25 mcg tablet 1 dose, Starting on Sat10/06/10 at 0936, Until Sat10/06/10 at 1014, NATALIIA KRUGER: Cabinet Override misoprostol tablet 50 mcg 50 mcg, Oral, EVERY 4 HOURS SCHEDULED, First dose (after last modification) on Sat10/06/10 at 1200, Until Discontinued, Routine Given 10/06/2010 3:30 PM EDT 50 mcg Given 10/06/2010 10:20 AM EDT 50 mcg nalbuphine (NUBAIN) 20 mg/mL injection Starting on Sat10/13/10 at 2206, 1 dose, Until Sat10/13/10 at 2215, LIYA DUARTE: Cabinet Override nalbuphine (NUBAIN) injection 2 mg 2 mg, Intravenous, EVERY 4 HOURS PRN, Pain, Itching, Starting on Sat10/13/10 at 2213, Until Sat10/16/10 at 2020, If not effective, may repeat once after 30 minutes with each 4 hour dosing interval. Given 10/13/2010 11:15 PM EDT 2 mg Given 10/13/2010 10:15 PM EDT 2 mg OXYcodone-acetaminophen (PERCOCET) 5-325 mg per tablet 1-2 tablet 1-2 tablet, Oral, EVERY 3 HOURS PRN, Starting on 5/13/11 at 2124, Until Sat10/16/10 at 2020, Pain, moderate-severe pain, Administer 1 tablet for moderate pain and 2 tablets for severe pain, Routine Given 10/16/2010 3:37 PM EDT 2 tablets Given 10/16/2010 9:34 AM EDT 2 tablets Given 10/16/2010 5:47 AM EDT 2 tablets oxytocin (PITOCIN) 30 units in sodium chloride 0.9% 500 mL infusion 1 troy-units/min (rounded to 1 mL/hr), Intravenous, CONTINUOUS, Starting on Sat10/04/10 at 2200, Until Sat10/06/10 at 1014, Piggyback into Lactated Ringers; Start at 2 milliunits/minute and increase by 1-2 milliunits/minutes every 30 minutes to achieve contractions that are every 2-3 minutes, lasting 60-90 seconds with 1 minute resting tone between contractions palpating strong. Oxytocin may not be initiated until: - 1 hour after Cervidil is removed - 4 hours after last misoprostol dose is given , Routine Rate/Dose Change 10/06/2010 9:18 AM EDT 12 troy-units/min 12 mL/hr Rate/Dose Change 10/06/2010 7:35 AM EDT 10 troy-units/min 10 mL/hr Rate/Dose Change 10/06/2010 6:13 AM EDT 8 troy-units/min 8 mL/hr oxytocin (PITOCIN) 30 units in sodium chloride 0.9% 500 mL infusion 1 troy-units/min (rounded to 1 mL/hr), Intravenous, CONTINUOUS, Starting on Sat10/13/10 at 0800, Until Sat10/13/10 at 2124, Piggyback into Lactated Ringers; Start at 2 milliunits/minute and increase by 2 milliunits/minutes every 30 minutes to achieve contractions that are every 2-3 minutes, lasting 60-90 seconds with 1 minute resting tone between contractions palpating strong. Oxytocin may not be initiated until: - 1 hour after Cervidil is removed - 4 hours after last minute misoprostol dose is given, Routine Rate/Dose Verify 10/13/2010 5:15 PM EDT 14 troy-units/min 14 mL/hr Rate/Dose Change 10/13/2010 5:00 PM EDT 14 troy-units/min 14 mL/hr Rate/Dose Verify 10/13/2010 4:45 PM EDT 12 troy-units/min 12 mL/hr oxytocin in Normal Saline (PITOCIN) 30 unit/500 mL infusion Soln 1 dose, Starting on Sat10/13/10 at 0724, Until Sat10/13/10 at 0741, SHANI CONTRERAS: Cabinet Override penicillin G potassium 3 million units in dextrose 5% 50 mL 3 Million Units, Intravenous, EVERY 4 HOURS, First dose on Sat10/05/10 at 0200, Until Discontinued, Administer over 60 Minutes, Until delivery for GBS prophylaxis New Bag 10/05/2010 10:00 AM EDT 3 Million Units 50 mL/hr penicillin G potassium 5 million unit vial attach to sodium chloride 0.9% 100 mL Mini-Bag Plus 5 Million Units, Intravenous, ONCE, 1 dose, On Sat10/04/10 at 2200, Administer over 60 Minutes, Administer once active labor starts Given 10/04/2010 10:15 PM EDT 5 Million Units 110 mL/hr vitamin 27 & [id number] 60 mg (Iron)-1 mg tablet Tab 1 tablet 1 tablet, Oral, DAILY, First dose on Sat10/04/10 at 1245, Until Discontinued, Routine Given 10/12/2010 9:00 PM EDT 1 tablet Given 10/11/2010 9:00 PM EDT 1 tablet Given 10/10/2010 9:00 PM EDT 1 tablet sodium chloride 0.9 % flush 10 mL 10 mL, Intravenous, EVERY 8 HOURS, First dose on Sat10/04/10 at 2115, Until Discontinued Given 10/04/2010 9:15 PM EDT 10 mLs vancomycin 1 g in sodium chloride 0.9% 250 mL 1,000 mg (1 g), Intravenous, at 166.7 mL/hr, EVERY 12 HOURS, First dose on Sat10/05/10 at 1215, Until Discontinued, Routine Given 10/07/2010 12:15 AM EDT 1,000 mg 16 6.7 mL/hr Given 10/06/2010 12:15 PM EDT 1,000 mg 166.7 mL/hr Given 10/06/2010 12:15 AM EDT 1,000 mg 166.7 mL/hr zolpidem (AMBIEN) tablet 5-10 mg 5-10 mg, Oral, NIGHTLY PRN, Starting on 10/12/10 at 2242, Until 10/16/10 at 2020, Sleep, Routine Given 10/12/2010 10:50 PM EDT 10 mg documented in this encounter Active and Recently Administered Medications Times are shown in EDT. Scheduled Medication Order 10/14/2010 10/15/2010 10/16/2010 ketorolac (TORADOL) injection 30 mg (COMPLETED) 30 mg, Intravenous, EVERY 6 HOURS SCHEDULED, 4 doses, First dose on 10/14/10 at 0000, Last dose on 10/14/10 at 1600, For severe pain, Routine 0400 (Given - Provider: Liya Duarte, KIKI)1000 (Given - Provider: Raya Barragan, RN)1600 (Given - Provider: Raya Barragan, KIKI) PRN Medication Order 10/14/2010 10/15/2010 10/16/2010 diph,pertuss(acel),tet vac(PF) (ADACEL, Tdap) injection 0.5 mL (COMPLETED) 0.5 mL, Intramuscular, PRIOR TO DISCHARGE, 1 dose, Starting on Sat10/13/10 at 2124, Until 10/16/10 at 1440, Per Protocol, Routine 1440 (Given - Provider: Nesha Borrego, KIKI) docusate sodium (COLACE) capsule 100 mg 100 mg, Oral, 2 TIMES DAILY PRN, Starting on 10/04/10 at 1224, Until Sat10/16/10 at 2020, Constipation, Routine 0916 (Given - Provider: Shani Contreras RN)2052 (Given - Provider: Phyllis Goldman, KIKI) 0824 (Given - Provider: Nesha Borrego RN) ibuprofen (ADVIL;MOTRIN) tablet 600 mg 600 mg, Oral, EVERY 6 HOURS PRN, Starting on Sat10/15/10 at 1006, Until 10/16/10 at 2020, Pain, Maximum dose of 3200 mg from all sources in 24 hours, Routine 2300 (Due) 0500 (Due)1245 (Given - Provider: Shani Contreras, KIKI)1900 (Given - Provider: Shani Contreras, KIKI) 0123 (Given - Provider: Phyllis Goldman, KIKI)0823 (Given - Provider: Nesha E Elmo, RN)1538 (Given - Provider: Brenda Guzman, RN) OXYcodone-acetaminophe n (PERCOCET) 5-325 mg per tablet 1-2 tablet 1-2 tablet, Oral, EVERY 3 HOURS PRN, Starting on Sat10/13/10 at 2124, Until 10/16/10 at 2020, Pain, moderate-severe pain, Administer 1 tablet for moderate pain and 2 tablets for severe pain, Routine 0330 (Given - Provider: Liya Duarte RN)0645 (Given - Provider: Liya Duarte RN)1012 (Given - Provider: Raya Barragan, KIKI)1404 (Given - Provider: Raya Barragan, KIKI)1837 (Given - Provider: Raya Barragan RN)2259 (Given - Provider: Shivani Pineda, KIKI) 0501 (Given - Provider: Shivani Pineda, KIKI)0914 (Given - Provider: Shani Contreras RN)1518 (Given - Provider: Shani Contreras RN)2054 (Given - Provider: Phyllis Goldman, KIKI) 0122 (Given - Provider: Phyllis Goldman, KIKI)0547 (Given - Provider: Phyllis Goldman, KIKI)0934 (Given - Provider: Nesha Borrego RN)1537 (Given - Provider: Brenda Guzman, RN) documented in this encounter 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
--- NOTE | 2024-01-23 10:10 | NUR.NOTE ---
Referral faxed to [facility] for colonoscopy after diverticulitis, in 6 to 8 weeks. Nursing Note:
== END 2024-01-23 13:55 | disposition home or self-care (01) ==
LOC: ER 10:00
PROVIDERS: Emergency Provider Emergency Medicine; PCP Nurse Practitioner Family
DX: K57.32 Diverticulitis of large intestine without perforation or abscess without bleeding (principal); F17.210 Nicotine dependence, cigarettes, uncomplicated
CPT/HCPCS: 36415; 80053; 81025; 96361; 96374; 99284; 74176; 81003; 85025; J1885

== ENCOUNTER 2024-03-31 06:02 | Day surgery (SDC) | payer MEDICAID, SELFPAY ==
--- NOTE | 2024-03-30 12:38 | W.COLOREPORT ---
Date of service: 03/31/24 Time of Service: 08:22 Colonoscopy Report Date of procedure: 03/31/24 Pre-op diagnosis general: Diverticulosis of the large colon Post-op diagnosis procedure note: same Surgeon: Shannan Aldana Anesthesia Type: General:No Airway Estimated blood loss (mL): 1 Pathology: other Complications: None Disposition: same day Prep: Miralax/Dulcolax Retraction Time: 13 Procedure Description: After informed consent was obtained, explaining risks of the procedure, including but not limits to: bleeding, infections, complications of anesthesia, perforations (which may require antibiotics and /or surgery and stay in the hospital), and abdominal pain/cramping. The patient was taken to the procedure room and placed in a left decubitous position. Monitors were applied and a time out was done. The patients name, date of , procedure, allergies to medications and metal in their body was reviewed. The patient was then sedated. Once sedated and comfortable a rectal exam was done. External exam was normal. Internal exam revealed a normal sphincter tone and no palpable masses. The previously lubricated Olympus scope was then introduced (see RN notes for scope number) and retrofelexed. No internal hemorrhoids were identified. The scope was then advanced to the cecum without difficulty. The TI and appendiceal orifice were identified. The scope was then slowly retracted over 13 minutes back into the rectum. Polyps: None Diverticula: Has 1 or 2 small diverticulum confined to about 30 cm. There is no signs of active bleeding or disease at this time. The mucosa is pink and healthy w/ a normal vascular pattern. The scope was removed, and the patient was woken up and taken back to Same day surgery in stable condition. The patient tolerated the procedure well and there were no immediate complications. Follow up: The patient should follow up in 10 years, unless they develop changes in bowel habits or other new gastrointestinal complaints. [place] Bowel Prep [place] Bowel Prep Right Colon: 3 Left Colon: 3 Transverse Colon: 3 Total Score: 9
--- NOTE | 2024-03-30 12:39 | PDOC.DSDIS_ITS ---
Date of service: 03/31/24 Time of Service: 08:35 Discharge Plan Disposition Patient Disposition: Home Discharge Details Reason For Visit: colon scope Attending Provider: Shannan Aldana Primary Care Provider: SAMANTHA BENTLEY Home Meds and New Rx's Prescriptions: Continued Mirena 21 mcg/24 hours (8 yrs) 52 mg intrauterine device 1 device intrauterine ONCE Rx Instructions: as a single dose bupropion HCl [Wellbutrin SR] 150 mg tablet sustained-release 12 hr 150 mg PO DAILY Discontinued bisacodyl 5 mg tablet,delayed release (DR/EC) 5 mg PO ONCE Qty: 4 0RF Rx Instructions: Per Colonoscopy bowel prep instructions polyethylene glycol 3350 17 gram/dose powder 238 g PO ONCE Qty: 238 0RF Rx Instructions: For Colonoscopy bowel prep, as directed by office Discharge Instructions Additional Instructions: DSU Colonoscopy Post- Op Instructions Instructions for Everyone who is given Anesthesia: For your safety, please do the following for the next twenty-four (24) hours: *Do Not operate a motor vehicle (car, truck, motorcycle, etc.) *Do Not drink alcoholic beverages or use any recreational drugs for the first 24 hours or while taking pain medications. The medications in your body may have a reaction that can be dangerous. *Do Not make any important decisions or sign any important papers. Findings: mild diverticular dx Sure you are moving your bowels on a regular basis and not straining. 4-5 servings of fruits and vegetables a day and 8 to 12 glasses of water a day. If you find you are having problems with straining/constipation, then it is recommended you start a fiber meant supplement daily Follow up: repeat CE in 10 yrs 1. No lifting over 20 pounds or strenuous activity for the first 24 hours after your procedure. After 24 hours there are no restrictions on your activity but you may feel fatigued for a few days. 2. After you arrive home you may have a light meal and return to your normal diet as you can tolerate it without feeling sick to your stomach. 3. You may have a bloated, gaseous feeling in your belly (abdomen) after a colonoscopy. Passing gas and belching will help. Walking or lying down on your left side with your knees flexed may relieve the discomfort. Call the office at [phone] (Office) or [phone] (Hospital) right away if you notice any of the following: a.Vomiting of blood or ?coffee ground stools?. b.Rectal bleeding 1Tbsp, blood clots or continuous bleeding. c.Severe belly (abdominal) pain. d.A hard distended belly (abdomen) and an inability to pass gas. 4. Please don?t expect to have a normal BM (bowel movement) for 2-3 days after your procedure. 5. If there are questions regarding the findings of your procedure, please contact your doctor 6. If you are unable to contact your doctor with a problem, contact the hospital at [phone]. 7. Continue all your regular medications unless directed otherwise. I understand the above instructions and have no questions. Signature of Patient or Adult Escort Name of Responsible Adult Escort Signature of Nurse Date/Time Stand Alone Forms: Anesthesia Discharge Riki., Perico Echeverria (DSU) Activity:: see above Diet:: see above Discharge Orders Discharge Orders: Discharge Order (Routine); Ordered 03/31/24 Ordered By: Shannan Aldana DS: Diagnosis Discharge Diagnosis (1) Diverticulitis large intestine: Status: Acute Asessment and Plan: The patient is seen and examined after their colonoscopy.? The patient has been able to pass gas.? They are not having abdominal pain.? They have been able to tolerate liquids and a snack.? They do not have any nausea or vomiting.? They are not having any chest pain or shortness of breath.??? They are not having any rectal bleeding. Their vital signs have been stable-see nursing notes. We discussed findings during their colonoscopy, and any biopsies that were done/polyps that were removed. The patient will be sent a letter with any biopsy results, and when to repeat the colonoscopy.-see discharge instructions. Patient was given explicit instructions to follow-up regarding colonoscopy-refer to discharge instructions.? We reviewed resumption of medications. Patient verbalized understanding and discharged in stable and satisfactory condi tion- See nursing notes.
[2024-03-31 06:25] VITALS: BP 114/88; PULSE 84; RESP 16; TEMP 36.5; O2SAT 98
[2024-03-31] MEDS: Lactated Ringers 1,000 ML 80 ML IV (06:41)
--- NOTE | 2024-03-31 07:09 | W.ANESPRE ---
General Info Date of Service Date Performed: 03/31/24 Height: 5 ft 3 in Weight: 108.3 kg Body Mass Index (BMI): 42.3 Surgical Procedure: Operation Date: 03/31/24 07:35 Proposed Procedure Side Surgeon claudia Aldana, Meds Allergies and Home Medications Allergies Allergy/AdvReac Type Severity Reaction Status Date / Time No Known Allergies Allergy Verified 03/31/24 06:31 Home Medication ?Medication ?Instructions ?Recorded levonorgestrel 21 mcg/24 hr (up to 1 device intrauterine ONCE 08/23/22 8 years) 52 mg intrauterine device (Mirena) bupropion HCl 150 mg tablet,12 hr 150 mg PO DAILY 03/12/24 sustained-release (Wellbutrin SR) Current Visit Medications: Current Medications Generic Name Dose Route Start Last Admin Trade Name Freq PRN Reason Stop Dose Admin Hyoscyamine Sulfate 0.125 mg 03/31/24 10:19 Hyoscyamine 0.125 Mg Sl/Oral/Chew SL 04/30/24 10:18 DIRECTED PRN Ringer's Solution 1,000 mls @ 80 mls/hr 03/31/24 06:00 03/31/24 06:41 IV 03/31/24 23:59 80 mls/hr INFUSION RUFINA Administration IV Miscellaneous Supplies 1 each 03/31/24 06:00 Iv Access IV 03/31/24 23:59 DIRECTED RUFINA Ondansetron HCl 4 mg 03/31/24 10:19 Ondansetron 4 Mg/2 Ml Vial IVP 04/30/24 10:18 Q4H PRN PRN Nausea / Vomiting Sodium Chloride 0 ml 03/31/24 06:00 Normal Saline Flush 10 Ml Syr IV 03/31/24 23:59 PRN PRN Sodium Chloride 0 ml 03/31/24 06:00 Normal Saline 10 Ml Vial IJ 03/31/24 23:59 DIRECTED PRN Sterile Water 0 ml 03/31/24 06:00 Water,Injection,Sterile 10 Ml Vial IJ 03/31/24 23:59 DIRECTED PRN PFSH Active Problems Active Problems: Problem Status Onset Code Diverticulitis large intestine Acute K57.32 Medical History Medical History Depression with anxiety Candidiasis of breast Back strain IUD surveillance (01/16/18) Mirena IUD removed via endosee, Ricardoetta placed 02/22/22 - also malpositioned and removed 08/09/22 Mirena replaced 08/23/22 without difficulty Surgical History Surgical History section X 2 Tobacco Smoking/Tobacco Use Status: Former Tobacco Use Alcohol Alcohol Intake: current Alcohol intake frequency: holidays/special occasions only Substance Use Substance use: Daily Substance use type: marijuana Details: Hasn't smoked in past 24 hours. Prental History History 2 Para Hx # Term Pregnancies Multiple births Hx # Pregnancies Ectopic pregnancies AB induced Hx Number of Living Children AB spontaneous Past Pregnancies Del. Date GA/Weeks # Preg Succ Route Wgt Sex Labor Lgth Anesthesia Location [facility] 10/13/10 35 No Yes 1927.768 g Male [facility] 10/07/14 39 No Yes 2976.7 g Male [facility] Delivery Date: 10/13/10 Last Updated by: Liya Ludwig MD 33wk PPROM, 35wk delivery via CS for FHT Delivery Date: 10/07/14 Last Updated by: Liya Ludwig MD [facility] Vital Signs and Lab Results Vital Signs Most Recent Vital Signs in EMR: Most Recent Vital Signs Temp Pulse Resp BP Pulse Ox 36.5 C 84 16 114/88 98 03/31/24 06:25 03/31/24 06:25 03/31/24 06:25 03/31/24 06:25 03/31/24 06:25 Point of Care Results Point of Care Results: POC- Test(urine) Negative 03/31/24 06:29 Lab Results Blood Type / Crossmatch: No Data to Display Complete Blood Count: No Data to Display Complete Metabolic Panel: No Data to Display Liver Function Panel: No Data to Display Coagulation Panel: No Data to Display Cardiac Panel: No Data to Display Arterial Blood Gas: No Data to Display Venous Blood Gas: No Data to Display Pancreas Panel: No Data to Display Thyroid Panel: No Data to Display Infectious Disease: No Data to Display Blood Cultures: No Data to Display Toxicology Panel: No Data to Display Panel: No Data to Display Anesthesia Assessment and Plan Anesthesia History Personal History: No History of General Anesthesia Family History: No Family History of Anesthesia Complications Exercise Tolerance Exercise Tolerance: Metabolic Equivalents>4 Pertinent Negatives Pertinent Negatives: No Symptoms of GERD Cardiac & Pulmonary Exam Cardiac Exam: Normal S1/S2 Heart Sounds Pulmonary Exam: Clear Bilateral Breath Sounds Implantable Cardiac Device Does patient have a Pacemaker or an ICD?: No Airway Exam Known Difficult Airway: No Mallampati Class: 2 Mouth Opening: Normal (> 3cm) Thyromental Distance: Greater than 3 cm Neck Range of Motion: Full ROM Neck Circumference: Normal Teeth Condition: Normal Dentition Airway Comments: lip ring remaining in place ASA Classification ASA Score: ASA 3 Emergency Case?: No NPO Status NPO Status: NPO Clears >2 hours, Solids >8 hours Status Status: Negative HCG Anesthesia Plan Resuscitation Status: Full Code Anesthesia Technique: General Anesthesia Airway Planned: Natural Airway Monitors Used: Standard Monitors
[2024-03-31 07:34] VITALS: BMI 42.3
--- NOTE | 2024-03-31 07:47 | BOWEL_PTH ---
PATIENT: Steffanie Chandler LOC: [facility] U#:[id number] AGE/SX: 33/F ROOM: RE03/31/[address]: Shannan Aldana : 1990 BED: DIS: 03/31/2024 SPEC #: [id number] RECD: 03/31/24 12:47 STATUS: MATHEW REQ #: [id number] BARBARA: 03/31/24 07:[address]: Shannan Aldana DEPT: Surgical Specimen RECD BY: Jeanna Song ENTERED: 03/31/24 12:49 SP TYPE: Bowel OTHR DR: SAMANTHA BENTLEY, P[employer]ING MACHINE [employer] Tissues: 1 - BIOPSY BOWEL 2 - BIOPSY BOWEL 3 - BIOPSY BOWEL 4 - BIOPSY BOWEL Procedures: GROSS AND MICRO LEVEL 4 Comments: [id number]
[2024-03-31 08:01] VITALS: BP 111/76; PULSE 76; RESP 16; TEMP 36.3; O2SAT 96
[2024-03-31 08:34] VITALS: BP 101/74; PULSE 65; RESP 18; TEMP 36.5; O2SAT 99
--- NOTE | 2024-03-31 09:26 | W.ANESPOSTOP ---
Postoperative Evaluation Date, Time and Location Date Performed: 03/31/24 Time Performed: 08:28 Patient Location: Day Surgery Unit Vital Signs Most Recent Imported Vital Signs: Most Recent Vital Signs Temp Pulse Resp BP Pulse Ox 36.5 C 65 18 101/74 99 03/31/24 08:34 03/31/24 08:34 03/31/24 08:34 03/31/24 08:34 03/31/24 08:34 Pain Score Most Recent Pain Score: Most Recent Pain Score Pain Level 0 03/31/24 08:01 Assessment Mental Status: Awake (Alert & Oriented to Patient Baseline) Airway and Respiratory Function: Patent airway with normal (patient baseline) respiratory exam Cardiovascular Function: Hemodynamically Stable Hydration Status: Adequately Hydrated Nausea & Vomiting: No Nausea or Vomiting Pain: Pt. Denies Any Pain Peripheral Nerve Block: Patient did not receive a nerve block
== END 2024-03-31 09:22 | disposition home or self-care (01) ==
PROVIDERS: PCP Nurse Practitioner Family; Visit Provider Surgery
PROC: 0DJD8ZZ Inspection of Lower Intestinal Tract, Via Natural or Artificial Opening Endoscopic (ICD-10-PCS; CPT 45378; principal; 2024-03-31 07:30)
DX: K57.32 Diverticulitis of large intestine without perforation or abscess without bleeding (principal); G47.30 Sleep apnea, unspecified; K63.89 Other specified diseases of intestine
CPT/HCPCS: 45380; 81025; 88305; J2704

== ENCOUNTER 2025-02-02 08:16 | Emergency (ER) | payer SELFPAY ==
[2025-02-02 08:19] VITALS: BP 156/97; PULSE 76; RESP 18; TEMP 37.1; O2SAT 98
--- NOTE | 2025-02-02 09:18 | W.ED.GENAD ---
Discharge Plan Disposition Patient Disposition: Home Condition: Good Discharge Details Clinical Impression: Epicondylitis, lateral (tennis elbow), Impingement syndrome of right shoulder, Biceps tendinitis, Elbow pain, Acute shoulder pain Primary Care Provider: SAMANTHA BENTLEY ED Provider: Patricia Weeks Home Meds and New Rx's Prescriptions: Continued Mirena 21 mcg/24 hours (8 yrs) 52 mg intrauterine device 1 device intrauterine ONCE Rx Instructions: as a single dose bupropion HCl [Wellbutrin SR] 150 mg tablet sustained-release 12 hr 300 mg PO DAILY Discharge Instructions Instructions: Elbow tendinopathy (tennis and golf elbow), Shoulder Pain ED Additional Instructions: As we discussed, your x-rays are reassuring here today. No evidence to suggest fracture or dislocation. However, your exam is concerning for tennis elbow as well as inflammation in your shoulder near the rotator cuff as well as over the bicep. These things do not feel weak, I do not believe that you have a tear at this point but do encourage that you continue with supportive care. Using anti-inflammatories, such as Aleve, twice a day can help with the inflammation. May augment with Tylenol as needed for discomfort, please take as directed on the packaging. The wrist brace provided should help with the elbow pain. If this is not successful, you can try the forearm strap that we discussed. I do encourage that you wear this brace at night to help with the flexed position that you tend to sleep in which does exacerbate your pain. Please call your primary care provider, number listed below, to schedule follow-up appointment in the next 2 weeks. Referral for physical therapy is attached. Try to reduce the amount that you are performing overhead activities, particularly repetitious overhead activities. If you develop any new or worsening symptoms please seek urgently once again. Stand Alone Forms: Physical Therapy Referral Referrals: SAMANTHA BENTLEY, SALES OPERATIONS SPECIALIST [Primary Care Provider, Medicine] Discharge Data Discharge Date/Time-TO BE ENTERED AT DEPARTURE: 02/02/25 10:05 HPI General Date/Time Provider Initiated Documentation: 02/02/25 08:50. Limitations to Documentation: no limitations. Information obtained by: patient and RN notes reviewed. History of Present Illness 34 year old F presents to the emergency department with the chief complaint of right shoulder and elbow pain, described as moderate, Quality is described as aching, and is localized to the right and upper extremity. Patient reports no radiation. Patient started experiencing this year(s) (elbow x 1 year, shoulder x 3 days) and it has been constant. Immobilization improves symptom(s), Movement worsens symptoms . Patient notes no other symptoms.. Patient did receive the following treatments prior to arrival, none Related Data Home Medications ?Medication ?Instructions ?Recorded ?Confirmed levonorgestrel (Mirena) 1 device intrauterine ONCE 08/23/22 02/02/25 bupropion HCl 150 mg tablet,12 hr 300 mg PO DAILY 03/12/24 02/02/25 sustained-release (Wellbutrin SR) Allergies Allergy/AdvReac Type Severity Reaction Status Date / Time No Known Allergies Allergy Verified 02/02/25 08:24 General Stated Complaint: Orthopedic FERNANDO: 4 Review of Systems Constitutional Constitutional: Reports as per HPI, Denies fever(s), Denies headache(s) and Denies weakness ENT Ears, Nose, Mouth, and Throat: Denies headache(s) Cardiovascular Cardiovascular: Reports as per HPI Respiratory Respiratory: Reports as per HPI and Denies cough Musculoskeletal Musculoskeletal: Reports as per HPI and Denies tingling Integumentary/Breasts Skin/Breast: Reports as per HPI, Denies rash and Denies wounds Neurologic Neurologic: Reports as per HPI, Denies headache(s), Denies tingling, Denies paresthesias and Denies weakness Exam Const General: cooperative, healthy appearing, comfortable, no acute distress, well developed and well groomed Nutritional Appearance: well nourished and overweight Orientation: alert and awake Resp Effort & Inspection: normal respiratory effort, able to speak in complete sentences and no respiratory distress Cardio Rate: regular rate Rhythm: regular rhythm Skin General skin exam: no rashes or lesions noted Lesions: no lesions Rashes: no rashes Trauma: no lacerations or abrasions Neuro General: patient alert and patient awake Cognition: normal cognition Speech: speech normal Gait: normal gait Motor: muscle tone normal throughout Sensory Exam: no sensory deficits noted (axillary nerve function normal, full strenght and sensaion in RUE) Extrem Shoulder/upper arm images:  1. 2. Areas of maximal discomfort. Patient has 2+ distal pulses. She has full range of motion of the elbow, wrist, hand, shoulder. Sensation is intact over the deltoid as well as into the hand. She has good strength in all of the extremity. Patient does have increased discomfort with supination and pronation against resistance which causes discomfort of the lateral epicondyle and the right elbow. She also has increased pain with empty can testing at the shoulder. She does not have any appreciable weakness in the rotator cuff. Course Vital Signs Vital signs: Vital Signs Temperature 37.1 C 02/02/25 08:19 Pulse 76 02/02/25 08:19 Respiratory Rate 18 02/02/25 08:19 Blood Pressure 156/97 H 02/02/25 08:19 Pulse Oximetry 98 02/02/25 08:19 Temperature 37.1 C 02/02/25 08:19 Pulse 76 02/02/25 08:19 Respiratory Rate 18 02/02/25 08:19 Blood Pressure 156/97 H 02/02/25 08:19 Pulse Oximetry 98 02/02/25 08:19 Pain Level 8 02/02/25 08:19 Medical Decision Making Patient is a pleasant 34-year-old [id number] female presenting today with chief complaint of right elbow and shoulder pain. She reports that the elbow pain has been present for approximately the past year. 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 Patient does report that she sleeps in a curled position with the elbow forward flexed. She denies focal numbness or tingling but does states that she can occasionally have some tingling in her fingers when she wakes from sleep. She has not tried anything as of yet for the elbow or had this evaluated. 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 States that this pain has been making difficult for her to continue to do those things. No significant trauma to either. Has not noticed any weakness. Has been using ibuprofen as well as topical Bengay, she has found that the topical options help more significantly for her discomfort. On exam, patient appears nontoxic. She is hemodynamically stable. She is 2+ distal pulses. Sensation is intact. Neurovascular intact. No axillary nerve dysfunction. She has no pain with palpation or movement of the wrist. However, when supinating or pronating against resistance, she does have pain in the elbow primarily over the lateral epicondyle. She is also tender with palpation over this region. Primarily concern for tennis elbow with this examination finding. She does have full flexion and extension of the elbow. No evidence to suggest biceps rupture, normal distal insertion, normal hook test. No visible or palpable deformities. No ecchymosis or evidence of trauma. Exam of the shoulder reveals to have full range of motion. No pain with internal or external rotation against resistance but she does have some discomfort with empty can testing. No weakness of the rotator cuff was appreciated. Negative Neer and Reinoso. She has no Red deformity but is slightly tender over the proximal short head of the biceps. 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 I believe this will improve with NSAIDs. I did encourage range of motion we will give her some exercises. Will also refer to physical therapy. Patient does not currently have health insurance but [facility] visit today to establish care. She will also follow-up with primary care in 2 weeks for reevaluation. Will apply Lidoderm patch. Will fit with a wrist brace to help with the lateral epicondylitis we also discussed the use of forearm strapping splint to help with discomfort. Given the position she sleeps in at night and how the positioning seems to really exacerbate things, I do feel that the wrist brace makes the most sense to begin with and that she can always alter based on success of improvement of her pain. Return precautions were discussed. All of her questions and concerns were addressed and she is in agreement this plan. PFSH All Active Problems (Updated 02/02/25 @ 09:53 by LISA Baig) Acute shoulder pain (Acute) Elbow pain (Acute) Biceps tendinitis (Acute) Impingement syndrome of right shoulder (Acute) Epicondylitis, lateral (tennis elbow) (Acute) Diverticulitis large intestine (Acute) Medical History (Updated 02/02/25 @ 09:53 by LISA Baig) Depression with anxiety Candidiasis of breast Back strain IUD surveillance (01/16/18) Mirena IUD removed via Alley jackson placed 02/22/22 - also malpositioned and removed 08/09/22 Mirena replaced 08/23/22 without difficulty Surgical History section X 2 Family History Mother RA (rheumatoid arthritis) Depression Thyroid disorder Brother Depression Social History Smoking/Tobacco Use Status: Former Tobacco Use Quit Date: 01/02/24 Tobacco: How many years used: 4 Quit status: considering quitting Smoking risk assessment performed?: Yes Alcohol Intake: current Alcohol Intake frequency: holidays/special occasions only Drug use: Daily Substance use type: marijuana Details: Hasn't smoked in past 24 hours. Housing: house Do you feel safe at home: Yes Do you feel safe in your relationship?: Yes Additional Social history: [employer] Female Reproductive History Menstrual Age of Menarche: 10 History History 2 Para Hx # Term Pregnancies Multiple births Hx # Pregnancies Ectopic pregnancies AB induced Hx Number of Living Children AB spontaneous Past Pregnancies Del. Date GA/Weeks # Preg Succ Route Wgt Sex Labor Lgth Anesthesia Location [facility] 10[facility]13/10 35 No Yes 1927.768 g [place] [facility]07[place]14 39 No Yes 2976.7 g Male [facility] Delivery Date: 10/13/10 Last Updated by: Liya Ludwig MD 33wk PPROM, 35wk delivery via CS for FHT Delivery Date: 10/07/14 Last Updated by: Liya Ludwig MD [facility]
--- NOTE | 2025-02-02 09:33 | DI.RAD_ITS ---
Exam(s) XR SHOULDER RT COMPLETE 2+V EXAM: XR SHOULDER RT COMPLETE 2+V CLINICAL HISTORY: pain after [place] activities. TECHNIQUE: 2D digital imaging was performed. Five views. COMPARISON: No exams were available for comparison FINDINGS: BONES: No acute fracture is present. No bony destructive lesion is seen. JOINTS: No dislocation present. The AC joint is not widened. SOFT TISSUE: Normal. IMPRESSION: Unremarkable radiographs of the right shoulder. DATA REPOSITORY: RADIATION DOSE DELIVERED:
--- NOTE | 2025-02-02 09:33 | DI.RAD_ITS ---
Exam(s) XR ELBOW RT COMPLETE EXAM: XR ELBOW RT COMPLETE CLINICAL HISTORY: chronic pain. TECHNIQUE: 2D digital imaging was performed. Three views. COMPARISON: No exams were available for comparison FINDINGS: BONES: No acute fracture is present. No bony destructive lesion is seen. JOINTS: The elbow is normally aligned. No joint effusion is seen. SOFT TISSUE: Normal. IMPRESSION: Unremarkable radiographs of the right elbow. DATA REPOSITORY: RADIATION DOSE DELIVERED:
[2025-02-02] MEDS: Lidocaine 5% Patch 1 PATCH TP (09:51)
== END 2025-02-02 10:05 | disposition home or self-care (01) ==
PROVIDERS: Emergency Provider Physician Assistant; PCP Nurse Practitioner Family
DX: M77.11 Lateral epicondylitis, right elbow (principal); M75.41 Impingement syndrome of right shoulder; M75.21 Bicipital tendinitis, right shoulder
CPT/HCPCS: 99284; 99283; 73030; 73080